=== PATIENT | female | born 1985 | race Caucasian/White ===

== ENCOUNTER 2018-04-27 12:57 | Emergency (ER) | payer OTHER ==
--- NOTE | 2018-04-27 15:34 | ER ---
Nurse's Notes [facility] Name: Lizzeth Almaraz Age: 33 yrs Sex: Female : 1985 Arrival Date: 04/27/2018 Time: 13:00 Bed 30 Private MD: Win García Diagnosis: Cough;Acute upper respiratory infection, unspecified;Allergy, unspecified Presentation: 04/27 13:04 Presenting complaint: Patient states: "I've had lumps in my throat for about a year now aa5 and they are getting bigger and I've had trouble swallowing for about a week now". Pt states "I've been to 3 or 4 different doctors and they tell me that it's in my head that my throat is fine". Pt c/o coughing up blood that began yesterday. Pt denies throat pain. Pt's voice is clear and pt is able to swallow own secretions in triage. Transition of care: patient was not received from another setting of care. Onset of symptoms was April 2018. Risk Assessment: Do you want to hurt yourself or someone else? Patient reports no desire to harm self or others. Initial Sepsis Screen: Does the patient meet any 2 criteria? No. Patient's initial sepsis screen is negative. Does the patient have a suspected source of infection? No. Patient's initial sepsis screen is negative. Care prior to arrival: None. 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 - Social history:: Smoking status: Patient/guardian denies using tobacco. - Ebola Screening: : No symptoms or risks identified at this time. Screenin:11 Abuse screen: Denies threats or abuse. Denies injuries from another. Nutritional iw screening: No deficits noted. Tuberculosis screening: No symptoms or risk factors identified. Fall Risk None identified. Assessment: 15:10 General: Appears in no apparent distress. Behavior is calm, cooperative. Pain: iw Complains of pain in throat. Neuro: Level of Consciousness is awake, alert, obeys commands, Oriented to person, place, time, situation, Moves all extremities. Full function. Cardiovascular: Patient's skin is warm and dry. Respiratory: Airway is patent Respiratory effort is even, unlabored, Breath sounds are clear bilaterally. GI: Abdomen is non-distended. EENT: Throat with gag reflex present, Reports difficulty swallowing. Derm: Skin is intact, is healthy with good turgor. Musculoskeletal: Range of motion: intact in all extremities. 16:11 Reassessment: Patient appears in no apparent distress at this time. Patient and/or mg2 family updated on plan of care and expected duration. Pain level reassessed. Patient is alert, oriented x 3, equal unlabored respirations, skin warm/dry/pink. Vital Signs: 13:07 BP 132 / 91; Pulse 95; Resp 16 S; Temp 97.6(TE); Pulse Ox 97% on R/A; Weight 90.72 kg aa5 (R); Height 5 ft. 2 in. (157.48 cm) (R); Pain 0/10; 16:11 BP 123 / 78; Pulse 85; Resp 18; Pulse Ox 100% ; Pain 0/10; mg2 13:07 Body Mass Index 36.58 (90.72 kg, 157.48 cm) aa5 ED Course: 13:00 Patient arrived in ED. mr 13:01 Win García MD is Private Physician. mr 13:06 Triage completed. aa5 13:07 Arm band placed on. aa5 14:06 Katty Dodge, RN is Primary Nurse. iw 14:07 Aquilino Corona MD is Attending Physician. cresencio 15:33 Win García MD is Referral Physician. cresencio 15:41 X-ray completed. Patient tolerated procedure well. Patient moved back from radiology. az 15:42 Chest Pa And Lat (2 Views) XRAY In Process Unspecified. EDMS 16:11 Patient has correct armband on for positive identification. mg2 16:11 No provider procedures requiring assistance completed. Patient did not have IV access mg2 during this emergency room visit. Administered Medications: 15:35 Drug: Zithromax 500 mg Route: PO; mg2 15:53 Follow up: Response: No adverse reaction mg2 Outcome: 15:33 Discharge ordered by . cresencio 16:11 Discharged to home ambulatory. mg2 16:11 Condition: stable 16:11 Discharge instructions given to patient, family, Instructed on discharge instructions, follow up and referral plans. medication usage, Demonstrated understanding of instructions, follow-up care, medications, Prescriptions given X 3. 16:12 Patient left the ED. mg2 Signatures: Dispatcher [employer] EDMS Aquilino Corona MD MD cha Rivera, Maria mr Katty Dodge RN RN iw Angelia Bonner RN RN aa5 Bandar Baiers RN RN mg2 Mirella Hdz Corrections: (The following items were deleted from the chart) 13:08 13:04 Presenting complaint: Patient states: "I've had lumps in my throat for about a aa5 year now and they are getting bigger and I've had trouble swallowing for about a week now". Pt states "I've been to 3 or 4 different doctors and they tell me that it's in my head that my throat is fine". Pt c/o coughing up blood that began yesterday. aa5
--- NOTE | 2018-04-27 15:34 | EDPHYS ---
Physician Documentation [facility] Name: Lizzeth Almaraz Age: 33 yrs Sex: Female : 1985 Arrival Date: 04/27/2018 Time: 13:00 Bed 30 Private MD: Win García ED Physician Aquilino Corona HPI: 04/27 15:28 This 33 yrs old Female presents to ER via Ambulatory with complaints of Sore cresencio Throat. 15:28 The patient presents with sore throat. The patient describes throat pain as burning, cresencio raw. Onset: The symptoms/episode began/occurred 2 day(s) ago. Severity of symptoms: At their worst the symptoms were mild, in the emergency department the symptoms have improved, mildly. Modifying factors: The symptoms are alleviated by nothing, the symptoms are aggravated by swallowing, Patient's oral intake status: good. Associated signs and symptoms: Pertinent positives: cough, some blood in sputum. The patient has not experienced similar symptoms in the past. 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 - Social history:: Smoking status: Patient/guardian denies using tobacco. - Ebola Screening: : No symptoms or risks identified at this time. ROS: 15:31 Constitutional: Negative for fever, chills, and weight loss, Eyes: Negative for injury, cresencio pain, redness, and discharge, Neck: Negative for injury, pain, and swelling, Cardiovascular: Negative for chest pain, palpitations, and edema, Abdomen/GI: Negative for abdominal pain, nausea, vomiting, diarrhea, and constipation, Back: Negative for injury and pain, : Negative for injury, bleeding, discharge, and swelling, MS/Extremity: Negative for injury and deformity, Skin: Negative for injury, rash, and discoloration, Neuro: Negative for headache, weakness, numbness, tingling, and seizure, Psych: Negative for depression, anxiety, suicide ideation, homicidal ideation, and hallucinations, Allergy/Immunology: Negative for hives, rash, and allergies, Endocrine: Negative for neck swelling, polydipsia, polyuria, polyphagia, and marked weight changes, Hematologic/Lymphatic: Negative for swollen nodes, abnormal bleeding, and unusual bruising. 15:31 ENT: Positive for rhinorrhea, sinus congestion. 15:31 Respiratory: Positive for cough, hemoptysis, minimal blood. Exam: 15:31 Constitutional: This is a well developed, well nourished patient who is awake, alert, cresencio and in no acute distress. Head/Face: Normocephalic, atraumatic. Eyes: Pupils equal round and reactive to light, extra-ocular motions intact. Lids and lashes normal. Conjunctiva and sclera are non-icteric and not injected. Cornea within normal limits. Periorbital areas with no swelling, redness, or edema. ENT: Nares patent. No nasal discharge, no septal abnormalities noted. Tympanic membranes are normal and external auditory canals are clear. Oropharynx with no redness, swelling, or masses, exudates, or evidence of obstruction, uvula midline. Mucous membranes moist. Neck: Trachea midline, no thyromegaly or masses palpated, and no cervical lymphadenopathy. Supple, full range of motion without nuchal rigidity, or vertebral point tenderness. No Meningismus. Chest/axilla: Normal chest wall appearance and motion. Nontender with no deformity. No lesions are appreciated. Cardiovascular: Regular rate and rhythm with a normal S1 and S2. No gallops, murmurs, or rubs. Normal PMI, no JVD. No pulse deficits. Respiratory: Lungs have equal breath sounds bilaterally, clear to auscultation and percussion. No rales, rhonchi or wheezes noted. No increased work of breathing, no retractions or nasal flaring. Abdomen/GI: Soft, non-tender, with normal bowel sounds. No distension or tympany. No guarding or rebound. No evidence of tenderness throughout. Back: No spinal tenderness. No costovertebral tenderness. Full range of motion. Skin: Warm, dry with normal turgor. Normal color with no rashes, no lesions, and no evidence of cellulitis. MS/ Extremity: Pulses equal, no cyanosis. Neurovascular intact. Full, normal range of motion. Neuro: Awake and alert, GCS 15, oriented to person, place, time, and situation. Cranial nerves II-XII grossly intact. Motor strength 5/5 in all extremities. Sensory grossly intact. Cerebellar exam normal. Normal gait. Psych: Awake, alert, with orientation to person, place and time. Behavior, mood, and affect are within normal limits. 15:35 Musculoskeletal/extremity: DVT Exam: No signs of deep vein thrombosis. no pain, no cresencio swelling, no tenderness, negative Homans' sign noted on exam, no appreciated bluish discoloration, no erythema, no increased warmth. Vital Signs: 13:07 BP 132 / 91; Pulse 95; Resp 16 S; Temp 97.6(TE); Pulse Ox 97% on R/A; Weight 90.72 kg aa5 (R); Height 5 ft. 2 in. (157.48 cm) (R); Pain 0/10; 16:11 BP 123 / 78; Pulse 85; Resp 18; Pulse Ox 100% ; Pain 0/10; mg2 13:07 Body Mass Index 36.58 (90.72 kg, 157.48 cm) aa5 MDM: 14:[address] [facility] 15:32 Data reviewed: vital signs, nurses notes, lab test result(s), radiologic studies, plain cresencio films. 04/27 15:36 Order name: Urine Dipstick--Ancillary (enter results) 04/27 15:36 Order name: Urine --Ancillary (enter results) 04/27 15:28 Order name: Urine Dipstick-Ancillary (obtain specimen); Complete Time: 15:32 [facility] 04/27 15:28 Order name: Urine Test (obtain specimen); Complete Time: 15:32 [facility] 04/27 15:28 Order name: Chest Pa And Lat (2 Views) XRAY [facility] Administered Medications: 15:35 Drug: Zithromax 500 mg Route: PO; mg2 15:53 Follow up: Response: No adverse reaction mg2 Disposition: 04/27/18 15:33 Discharged to Home. Impression: Cough, Acute upper respiratory infection, unspecified, Allergy, unspecified. - Condition is Stable. - Discharge Instructions: Upper Respiratory Infection, Adult, Cool Mist Vaporizer, Cough, Adult, [id number], Cough, Adult. - Prescriptions for Georgie- D 12 Hour 60-120 mg Oral Tablet Sustained Release 12 hr - take 1 tablet by ORAL route every 12 hours As needed; 20 tablet. Zithromax Z- Ankit 250 mg Oral Tablet - take 1 tablet by ORAL route as directed for 5 days Day 1 - take two (2) tablets one time. Day 2, 3, 4 , 5 take one (1) tablet once daily.; 6 tablet. Medrol (Ankit) 4 mg Oral Tablets, Dose Pack - take 1 tablet by ORAL route as directed - follow package instructions; 1 packet. - Medication Reconciliation Form, Thank You Letter, Antibiotic Education, Prescription Opioid Use form. - Follow up: Win García MD; When: 2 - 3 days; Reason: Recheck today's complaints, Continuance of care, Re-evaluation by your physician. - Problem is new. - Symptoms have improved. Signatures: Dispatcher [employer] EDMS Aquilino Corona MD MD cha Calderon, Audri RN RN aa5 Bandar Baires RN RN mg2 Corrections: (The following items were deleted from the chart) 15:35 15:33 04/27/2018 15:33 Discharged to Home. Impression: Cough; Acute upper respiratory cresencio infection, unspecified. Condition is Stable. Forms are Medication Reconciliation Form, Thank You Letter, Antibiotic Education, Prescription Opioid Use. Follow up: Win García; When: 2 - 3 days; Reason: Recheck today's complaints, Continuance of care, Re-evaluation by your physician. Problem is new. Symptoms have improved. [facility] 16:12 15:35 04/27/2018 15:33 Discharged to Home. Impression: Cough; Acute upper respiratory mg2 infection, unspecified; Allergy, unspecified. Condition is Stable. Discharge Instructions: Upper Respiratory Infection, Adult, Cool Mist Vaporizer, Cough, Adult, [id number]-Biyh, Cough, Adult. Prescriptions for Georgie-D 12 Hour 60-120 mg Oral Tablet Sustained Release 12 hr - take 1 tablet by ORAL route every 12 hours As needed; 20 tablet, Zithromax Z-Ankit 250 mg Oral Tablet - take 1 tablet by ORAL route as directed for 5 days Day 1 - take two (2) tablets one time. Day 2, 3, 4 , 5 take one (1) tablet once daily.; 6 tablet, Medrol (Ankit) 4 mg Oral Tablets, Dose Pack - take 1 tablet by ORAL route as directed - follow package instructions; 1 packet. and Forms are Medication Reconciliation Form, Thank You Letter, Antibiotic Education, Prescription Opioid Use. Follow up: Win García; When: 2 - 3 days; Reason: Recheck today's complaints, Continuance of care, Re-evaluation by your physician. Problem is new. Symptoms have improved. cresencio
[2018-04-27] MEDS ORDERED: AZITHROMYCIN 250 MG TAB ONE (15:36)
[2018-04-27 15:40] LABS: Urine Blood NEGATIVE (NEG); Urine Glucose NEGATIVE (NEG); Urine Protein NEGATIVE (NEG); Urine Specific Gravity 1.025 (1.005-1.030)
[2018-04-27 16:16] VITALS: TEMP 97.6
[2018-04-27 16:17] VITALS: BP 123/78; O2SAT 100
--- NOTE | 2018-04-27 17:16 | RAD REPORT ---
EXAM DESCRIPTION: RAD - Chest Pa And Lat (2 Views) - 04/27/2018 3:43 pm CLINICAL HISTORY: Cough, hemoptysis COMPARISON: January 2016 TECHNIQUE: PA and lateral views of the chest were obtained. FINDINGS: The lungs are clear. Heart size is normal and central vasculature is within normal limit s. No pleural effusion or pneumothorax seen. No acute bony finding noted. No aortic abnormality. No significant interval change. IMPRESSION: No acute cardiopulmonary process.
== END 2018-04-27 16:12 | disposition home or self-care (01) ==
LOC: ER 12:57
DX: J06.9 Acute upper respiratory infection, unspecified (principal); Z91.09 Other allergy status, other than to drugs and biological substances
CPT/HCPCS: 71046; 81003; 81025; 99283

== ENCOUNTER → 2023-10-25 | Emergency (ER) | payer OTHER ==
[~2023-10-25] MED LIST: MORPHINE 4 MG/ML SYR ONE; NA CHLORIDE 0.9% 1,000 ML ONE; ONDANSETRON 4 MG/2 ML VIAL ONE; POTASSIUM 25 MEQ EFFERV TAB ONE
[2023-10-25 04:42] LABS: Absolute Lymphocytes (CBC) 2.4 K/uL (0.7-4.9); Hematocrit 36.5 % (36.0-45.0); Lymphocytes % 21.1 % (15.3-44.8); MCV 84.6 fL (80-100); MPV 7.8 fL (7.6-11.3); Platelets 520 thou/uL (152-406); RBC Red Blood Cell Count 4.31 M/uL (3.86-4.86)
[2023-10-25 04:44] LABS: Specific Gravity 1.021 (1.005-1.030)
[2023-10-25 04:47] LABS: Specific Gravity 1.021 (1.005-1.030); Urine Bacteria <20 /HPF (<20); Urine Bilirubin NEGATIVE (Negative); Urine Blood Negative (Negative); Urine Clarity Extremely Turbid (Clear); Urine Color Light-Yellow (Yellow); Urine Glucose NEGATIVE (Negative); Urine Mucus 2+ /HPF (None Seen); Urine Protein TRACE (Negative); Urine RBC <5 /HPF (None Seen); Urine Urobilinogen Normal (Normal)
[2023-10-25 05:00] LABS: Albumin 3.1 g/dL (3.4-5.0); Bilirubin Total 0.5 mg/dL (0.2-1.0); Potassium 3.1 mEq/L (3.5-5.1); Protein, Total 8.1 g/dL (6.4-8.2)
--- NOTE | 2023-10-25 06:30 | ER ---
Nurse's Notes [facility] Name: Lizzeth Almaraz Age: 38 yrs Sex: Female : 1985 Arrival Date: 10/25/2023 Time: 01:54 Bed 17 Private MD: Diagnosis: Abdominal tenderness;Hypokalemia Presentation: 10/25 02:43 Chief complaint: Patient states: I had a hysterectomy September 22, about 2 weeks ago I jw7 started have severe pain. I went to [facility] they did blood work and scanned and said everything was fine. The pain is back and it is now going to my back. 02:43 Coronavirus screen: Vaccine status: Patient reports being unvaccinated. At this time, vc1 the client does not indicate any symptoms associated with coronavirus-19. Ebola Screen: Patient negative for fever greater than or equal to 101.5 degrees Fahrenheit, and additional compatible Ebola Virus Disease symptoms Patient denies exposure to infectious person. Patient denies travel to an Ebola-affected area in the 21 days before illness onset. No symptoms or risks identified at this time. Initial Sepsis Screen: Does the patient meet any 2 criteria? No. Patient's initial sepsis screen is negative. Does the patient have a suspected source of infection? No. Patient's initial sepsis screen is negative. Risk Assessment: Do you want to hurt yourself or someone else? Patient reports no desire to harm self or others. Onset of symptoms is unknown. 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 - Social history:: Smoking status: Patient denies any tobacco usage or history of. Screenin:28 Abuse screen: Denies threats or abuse. Nutritional screening: No deficits noted. vc1 Tuberculosis screening: No symptoms or risk factors identified. 05:01 [facility] ED Fall Risk Assessment (Adult) History of falling in the last 3 months, jw7 including since admission No falls in past 3 months (0 pts) Score/Fall Risk Level 0 - 2 = Low Risk Oriented to surroundings, Maintained a safe environment, Educated pt \T\ family on fall prevention, incl call for assistance when getting out of bed. Assessment: 05:01 General: Appears in no apparent distress. uncomfortable, Behavior is calm, cooperative, jw7 anxious, crying. Pain: Complains of pain in abdomen Pain radiates to back Pain currently is 8 out of 10 on a pain scale. Quality of pain is described as sharp, Pain began suddenly, Is continuous. Neuro: Win Agitation-Sedation Scale (RASS): 0 - Alert and Calm Level of Consciousness is awake, alert, obeys commands, Oriented to person, place, time, situation. Cardiovascular: Heart tones S1 S2 present Capillary refill < 3 seconds Patient's skin is warm and dry. Respiratory: Airway is patent Trachea midline Respiratory effort is even, unlabored, Respiratory pattern is regular, symmetrical. GI: Abdomen is round non-distended, Bowel sounds present X 4 quads. : No deficits noted. No signs and/or symptoms were reported regarding the genitourinary system. EENT: No deficits noted. No signs and/or symptoms were reported regarding the EENT system. Derm: Skin is intact, is healthy with good turgor, Skin is dry, Skin is normal, Skin temperature is warm. Musculoskeletal: Circulation, motion, and sensation intact. Range of motion: intact in all extremities. 06:21 Reassessment: Patient appears in no apparent distress at this time. Patient and/or jw7 family updated on plan of care and expected duration. Pain level reassessed. Patient is alert, oriented x 3, equal unlabored respirations, skin warm/dry/pink. Patient states feeling better. Patient states symptoms have improved. 07:03 Reassessment: Patient appears in no apparent distress at this time. No changes from jw7 previously documented assessment. Patient and/or family updated on plan of care and expected duration. Pain level reassessed. Patient is alert, oriented x 3, equal unlabored respirations, skin warm/dry/pink. Vital Signs: 02:43 BP 129 / 64; Pulse 99; Resp 18; Temp 98.8; Pulse Ox 97% ; Weight 75.75 kg; Height 5 ft. vc1 1 in. ; Pain 10/10; 05:39 BP 103 / 76; Pulse 86; Resp 19 S; Pulse Ox 95% on R/A; jw7 06:00 BP 92 / 61; Pulse 86; Resp 17 S; Pulse Ox 95% on R/A; jw7 07:03 BP 102 / 63; Pulse 85; Resp 16 S; Pulse Ox 96% on R/A; jw7 02:43 Body Mass Index 31.55 (75.75 kg, 154.94 cm) vc1 02:43 Pain Scale: Adult vc1 ED Course: 02:01 Patient arrived in ED. gm2 02:08 Aquilino Corona MD is Attending Physician. cresencio 03:26 Triage completed. vc1 03:27 Arm band placed on right wrist. vc1 04:15 Inserted saline lock: 22 gauge in right antecubital area, using aseptic technique. vc1 Blood collected. 04:59 Nicole Morel RN is Primary Nurse. jw7 05:01 Patient has correct armband on for positive identification. Bed in low position. Call jw7 light in reach. Side rails up X 1. 05:22 CT Abd/Pelvis - IV Contrast Only In Process Unspecified. EDMS 05:39 No provider procedures requiring assistance completed. jw7 07:04 Provided Education on: discharge instructions. jw7 07:04 IV discontinued, intact, bleeding controlled, No redness/swelling at site. Pressure jw7 dressing applied. Administered Medications: 04:08 Not Given (Duplicate Order): morphineor iv 2 mg IVP once over 4 mins cresencio 04:15 Drug: NS 0.9% IV 1000 ml IV at 1 bolus Per protocol; 1000 mL bolus Route: IV; Rate: 1 vc1 bolus; Site: right antecubital; 07:05 Follow up: Response: No adverse reaction; IV Status: Completed infusion; IV Intake: jw7 1000ml 04:15 Drug: Ondansetron IVP 4 mg IVP once; over 2 minutes Route: IVP; Site: right antecubital;vc1 07:05 Follow up: Response: No adverse reaction jw7 04:15 Drug: morphine IVP or IV 4 mg IVP once over 4 mins Route: IVP; Infused Over: 4 mins; vc1 Site: right antecubital; 07:04 Follow up: Response: No adverse reaction; Marked relief of symptoms jw7 05:38 Drug: morphine IVP or IV 4 mg IVP once over 4 mins Route: IVP; Infused Over: 4 mins; jw7 Site: right antecubital; 07:04 Follow up: Response: No adverse reaction; Marked relief of symptoms jw7 05:38 Drug: Ondansetron IVP 4 mg IVP once; over 2 minutes Route: IVP; Site: right antecubital;jw7 07:04 Follow up: Response: No adverse reaction; Marked relief of symptoms jw7 06:54 Drug: Potassium PO Effervescent Tablet 50 mEq PO once; dissolve in 4 ounces of water or jw7 juice Route: PO; 07:04 Follow up: Response: No adverse reaction jw7 Medication: 05:40 VIS not applicable for this client. jw7 Intake: 07:05 IV: 1000ml; Total: 1000ml. jw7 Outcome: 06:30 Discharge ordered by . cresencio 07:03 Discharged to home ambulatory, jw7 07:03 Condition: stable 07:03 Discharge instructions given to patient, Instructed on discharge instructions, follow up and referral plans. medication usage, Demonstrated understanding of instructions, follow-up care, medications, Prescriptions given X 3, 07:05 Patient left the ED. jw7 Signatures: Dispatcher [employer] EDMS Aquilino Corona MD MD cha Calcote, Vanessa RN RN vc1 Nicole Morel RN RN [id number] Katie Hawthorne gm2 Corrections: (The following items were deleted from the chart) 05:00 02:43 Chief complaint: Patient states: I had a hysterectomy September 22, about 2 weeks jw7 ago I started have severe pain. I went to [facility] they did blood work and scanned and said everything was fine. The pain is back and it is now going to my back. vc1
--- NOTE | 2023-10-25 06:31 | EDPHYS ---
Physician Documentation [facility] Name: Lizzeth Almaraz Age: 38 yrs Sex: Female : 1985 Arrival Date: 10/25/2023 Time: 01:54 Bed 17 Private MD: YEN Physician Aquilino Corona HPI: 10/25 04:10 This 38 yrs old Female presents to ER via Ambulatory with complaints of cresencio Abdominal Pain, Low Back Pain, Pt had a Hysterectomy in August. 04:10 The patient presents with pain that is acute, with no known mechanism of injury. The cresencio symptoms are located in the right mid back and right low back. The pain does not radiate. Modifying factors: The patient symptoms are alleviated by remaining still, the patient symptoms are aggravated by any movement. Severity of symptoms: At their worst the symptoms were moderate, in the emergency department the symptoms are unchanged. 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 - Social history:: Smoking status: Patient denies any tobacco usage or history of. ROS: 04:11 Constitutional: Negative for fever, chills, and weight loss, Eyes: Negative for injury, cresencio pain, redness, and discharge, ENT: Negative for injury, pain, and discharge, Neck: Negative for injury, pain, and swelling, Cardiovascular: Negative for chest pain, palpitations, and edema, Respiratory: Negative for shortness of breath, cough, wheezing, and pleuritic chest pain, Back: Negative for injury and pain, : Negative for injury, bleeding, discharge, and swelling, MS/Extremity: Negative for injury and deformity, Skin: Negative for injury, rash, and discoloration, Neuro: Negative for headache, weakness, numbness, tingling, and seizure, Psych: Negative for depression, anxiety, suicide ideation, homicidal ideation, and hallucinations, Allergy/Immunology: Negative for hives, rash, and allergies, Endocrine: Negative for neck swelling, polydipsia, polyuria, polyphagia, and marked weight changes, Hematologic/Lymphatic: Negative for swollen nodes, abnormal bleeding, and unusual bruising, 04:11 Abdomen/GI: Positive for abdominal pain, of the posterior aspect of right lateral abdomen, anterior aspect of right lateral abdomen and right lower quadrant, Exam: 04:11 Constitutional: This is a well developed, well nourished patient who is awake, alert, cresencio and in no acute distress. Head/Face: Normocephalic, atraumatic. Eyes: Pupils equal round and reactive to light, extra-ocular motions intact. Lids and lashes normal. Conjunctiva and sclera are non-icteric and not injected. Cornea within normal limits. Periorbital areas with no swelling, redness, or edema. ENT: Nares patent. No nasal discharge, no septal abnormalities noted. Tympanic membranes are normal and external auditory canals are clear. Oropharynx with no redness, swelling, or masses, exudates, or evidence of obstruction, uvula midline. Mucous membranes moist. Neck: Trachea midline, no thyromegaly or masses palpated, and no cervical lymphadenopathy. Supple, full range of motion without nuchal rigidity, or vertebral point tenderness. No Meningismus. Chest/axilla: Normal chest wall appearance and motion. Nontender with no deformity. No lesions are appreciated. Cardiovascular: Regular rate and rhythm with a normal S1 and S2. No gallops, murmurs, or rubs. Normal PMI, no JVD. No pulse deficits. Respiratory: Lungs have equal breath sounds bilaterally, clear to auscultation and percussion. No rales, rhonchi or wheezes noted. No increased work of breathing, no retractions or nasal flaring. Back: No spinal tenderness. No costovertebral tenderness. Full range of motion. Skin: Warm, dry with normal turgor. Normal color with no rashes, no lesions, and no evidence of cellulitis. MS/ Extremity: Pulses equal, no cyanosis. Neurovascular intact. Full, normal range of motion. Neuro: Awake and alert, GCS 15, oriented to person, place, time, and situation. Cranial nerves II-XII grossly intact. Motor strength 5/5 in all extremities. Sensory grossly intact. Cerebellar exam normal. Normal gait. 04:11 Abdomen/GI: Inspection: distension, that is moderate, Bowel sounds: normal, Palpation: moderate abdominal tenderness, in the right lower quadrant and left lower quadrant, Liver: no appreciated palpable abnormalities, Hernia: not appreciated, 04:11 Musculoskeletal/extremity: DVT Exam: No signs of deep vein thrombosis. no pain, no swelling, no tenderness, negative Homans' sign noted on exam, no appreciated bluish discoloration, no erythema, no increased warmth, Vital Signs: 02:43 BP 129 / 64; Pulse 99; Resp 18; Temp 98.8; Pulse Ox 97% ; Weight 75.75 kg; Height 5 ft. vc1 1 in. ; Pain 10/10; 05:39 BP 103 / 76; Pulse 86; Resp 19 S; Pulse Ox 95% on R/A; jw7 06:00 BP 92 / 61; Pulse 86; Resp 17 S; Pulse Ox 95% on R/A; jw7 07:03 BP 102 / 63; Pulse 85; Resp 16 S; Pulse Ox 96% on R/A; jw7 02:43 Body Mass Index 31.55 (75.75 kg, 154.94 cm) vc1 02:43 Pain Scale: Adult vc1 MDM: 02:08 Patient medically screened. [facility] 04:13 Differential diagnosis: strain, sciatica, Herniated disc UTI, nephrolithiasis, cresencio pyelonephritis, UTI. Data reviewed: vital signs, nurses notes, lab test result(s), radiologic studies, CT scan. Consideration of Admission/Observation Patient was admitted/placed on observation. Escalation of care including admission/observation considered. I considered the following discharge prescriptions or medication management in the emergency department Medications were administered in the Emergency Department. See MAR. Independent interpretation of the following test(s) in the Emergency Department CT Scan: My interpretation is ct abd pelvis. Test considered but Not performed: Ultrasound no abd usg. Care significantly affected by the following chronic conditions: Obesity, hypothy , gerd , obese. 10/25 02:10 Order name: CBC with Diff; Complete Time: 04:55 [facility] 10/25 02:10 Order name: CMP; Complete Time: 05:25 [facility] 10/25 02:10 Order name: Lipase; Complete Time: 05:25 [facility] 10/25 02:10 Order name: Test, Urine; Complete Time: 04:55 [facility] 10/25 02:10 Order name: Urinalysis w/ reflexes; Complete Time: 04:55 [facility] 10/25 02:10 Order name: CT Abd/Pelvis - IV Contrast Only cresencio 10/25 02:10 Order name: IV Saline Lock; Complete Time: 04:15 cresencio 10/25 02:10 Order name: Labs collected and sent; Complete Time: 04:15 cresencio Administered Medications: 04:08 Not Given (Duplicate Order): morphineor iv 2 mg IVP once over 4 mins cresencio 04:15 Drug: NS 0.9% IV 1000 ml IV at 1 bolus Per protocol; 1000 mL bolus Route: IV; Rate: 1 vc1 bolus; Site: right antecubital; 07:05 Follow up: Response: No adverse reaction; IV Status: Completed infusion; IV Intake: jw7 1000ml 04:15 Drug: Ondansetron IVP 4 mg IVP once; over 2 minutes Route: IVP; Site: right antecubital;vc1 07:05 Follow up: Response: No adverse reaction jw7 04:15 Drug: morphine IVP or IV 4 mg IVP once over 4 mins Route: IVP; Infused Over: 4 mins; vc1 Site: right antecubital; 07:04 Follow up: Response: No adverse reaction; Marked relief of symptoms jw7 05:38 Drug: morphine IVP or IV 4 mg IVP once over 4 mins Route: IVP; Infused Over: 4 mins; jw7 Site: right antecubital; 07:04 Follow up: Response: No adverse reaction; Marked relief of symptoms jw7 05:38 Drug: Ondansetron IVP 4 mg IVP once; over 2 minutes Route: IVP; Site: right antecubital;jw7 07:04 Follow up: Response: No adverse reaction; Marked relief of symptoms jw7 06:54 Drug: Potassium PO Effervescent Tablet 50 mEq PO once; dissolve in 4 ounces of water or jw7 juice Route: PO; 07:04 Follow up: Response: No adverse reaction jw7 Disposition Summary: 10/25/23 06:30 Discharge Ordered Notes: Location: Home cresencio Problem: new cresencio Symptoms: have improved cresencio Condition: Stable cresencio Diagnosis - Abdominal tenderness cresencio - Hypokalemia cresencio Followup: cresencio - With: Private Physician - When: 2 - 3 days - Reason: Recheck today's complaints, Continuance of care, Re-evaluation by your physician Discharge Instructions: - Discharge Summary Sheet cresencio - Abdominal Pain, Adult cresencio - Abdominal Pain, Adult, [id number] cresencio Forms: - Medication Reconciliation Form cresencio - Thank You Letter cresencio - Antibiotic Education cresencio - Prescription Opioid Use cresencio - Patient Portal Instructions cresencio - Leadership Thank You Letter cresencio - Work release form eb Prescriptions: - acetaminophen-codeine 300-30 mg Oral tablet - take 2 tablet ORAL route every 6-8 hours as needed for pain; 18 tablet; cresencio Refills: 0, Product Selection Permitted - Protonix 40 mg Oral Tablet - take 1 tablet ORAL route once daily; 30 tablet; Refills: 0, Product Selection [facility] Permitted - Zofran 4 mg Oral Tablet - take 1 tablet ORAL route every 12 hours As needed; 20 tablet; Refills: 0, [facility] Product Selection Permitted - dicyclomine 20 mg Oral tablet - take 1 tablet ORAL route 4 times per day; 28 tablet; Refills: 0, Product [facility] Selection Permitted Signatures: Dispatcher [employer] Aquilino Miller MD MD cha Calcote, Vanessa RN RN vc1 Nicole Morel RN RN jw7
[2023-10-25 07:15] VITALS: BP 102/63; TEMP 98.8; O2SAT 96
--- NOTE | 2023-10-25 17:17 | RAD REPORT ---
EXAM DESCRIPTION: CT - Abdomen Pelvis W Contrast - 10/25/2023 6:17 am CLINICAL HISTORY: The patient is 38 years old and is Female; lower abd pain, recent hysterectomy TECHNIQUE: Axial computed tomography images of the abdomen and pelvis with intravenous contrast. S agittal and coronal reformatted images were created and reviewed. This CT exam was performed using one or more of the following dose reduction techniques: automated exposure control, adjustment of t he mA and/or kV according to patient size, and/or use of iterative reconstruction technique. COMPARISON: No relevant prior studies available. FINDINGS: Lung bases: Unremarkable. No mass. No consolidation. ABDOMEN: Liver: Hepatomegaly. Gallbladder and bile ducts: Gallbladder is surgically absent. No ductal dilation. Pancreas: Unremarkable. No mass. No ductal dilation. Spleen: Unremarkable. No splenomegaly. Adrenals: Unremarkable. No mass. Kidneys and ureters: Simple cysts in the right kidney. No follow-up imaging is recommended. No hydronephrosis. Stomach and bowel: Postsurgical changes in the stomach. No obstruction. No mucosal thickening. PELVIS: Appendix: No findings to suggest acute appendicitis. Bladder: See below. Reproductive: Uterus is not seen. Stranding around the vagina and bladder which may be postsurgical. ABDOMEN and PELVIS: Intraperitoneal space: Unremarkable. No free air. No significant fluid collection. Bones/joints: No acute fracture. No dislocation. Soft tissues: Subcutaneous stranding along the lower abdominal wall which may be postsurgical. Vasculature: Unremarkable. No abdominal aortic aneurysm. Lymph nodes: Unremarkable. No enlarged lymph nodes. IMPRESSION: No acute finding in the abdomen/pelvis. Electronically signed by: Raúl Lui MD 10/25/2023 05:51 AM [facility] Due to temporary technical issues with the PACS/Fluency reporting system, reports are being signed by the in house radiologists without review as a courtesy to insure prompt reporting. The interpreting radiologist is fully responsible for the content of the report.
== END ==
LOC: ER 01:54
DX: R10.813 Right lower quadrant abdominal tenderness (principal); E87.6 Hypokalemia; Z88.2 Allergy status to sulfonamides
CPT/HCPCS: 85025; 81001; 36415; 81025; 83690; 80053; 74177; Q9967; J2405 ×2; J7030; 96361; 96374; 96375; 99284

== ENCOUNTER 2024-01-01 21:55 | Emergency (ER) | payer OTHER ==
[2024-01-01] MEDS ORDERED: MORPHINE 4 MG/ML SYR ONE (22:35)
[2024-01-01] MEDS ORDERED: NA CHLORIDE 0.9% 1,000 ML ONE (22:35)
[2024-01-01] MEDS ORDERED: ONDANSETRON 4 MG/2 ML VIAL ONE (22:35)
[2024-01-01 23:11] LABS: Absolute Basophils 0.1 K/uL (0-0.5); Absolute Eosinophils 0.3 K/uL (0-0.5); Absolute Lymphocytes (CBC) 1.7 K/uL (0.7-4.9); Absolute Monocytes 0.6 K/uL (0.1-1.3); Absolute Neutrophil 5.6 K/uL (1.8-8.0); Basophils % 0.7 % (0-1.3); Eosinophils % 3.4 % (0-4.4); Hematocrit 45.6 % (36.0-45.0); Hemoglobin 15.2 g/dL (12.0-15.0); Lymphocytes % 21.2 % (15.3-44.8); MCH 26.7 pg (27.0-35.0); MCHC 33.2 g/dL (32.0-36.0); MCV 80.3 fL (80-100); MPV 7.9 fL (7.6-11.3); Monocytes % 7.1 % (3.3-12.3); Neutrophils % 67.6 % (41.7-73.7); Nucleated Red Blood Cells % 0.1 % (0-0); Platelets 485 thou/uL (152-406); RBC Red Blood Cell Count 5.68 M/uL (3.86-4.86); Red Cell Distribution Width 18.6 % (12.1-15.2)
[2024-01-01 23:31] LABS: Albumin 3.3 g/dL (3.4-5.0); Albumin/Globulin Ratio 0.6 (1.1-1.8); Anion Gap 12.1 mEq/L (5.0-15.0); Bilirubin Total 0.5 mg/dL (0.2-1.0); Globulin 5.1 g/dL (2.3-3.5); Potassium 3.1 mEq/L (3.5-5.1); Protein, Total 8.4 g/dL (6.4-8.2)
[2024-01-02] MEDS ORDERED: FENTANYL CITR 100 MCG/2 ML ONE (00:46)
--- NOTE | 2024-01-02 01:17 | EDPHYS ---
Physician Documentation [facility] Name: Lizzeth Almaraz Age: 38 yrs Sex: Female : 1985 Arrival Date: 01/01/2024 Time: 21:55 Bed 15 Private MD: YEN Physician Aquilino Corona HPI: 12/31 23:17 This 38 yrs old Female presents to ER via Wheelchair with complaints of Fall Injury, sb4 abdominal pain. 23:18 patient states that she was walking down her stairs this afternoon when her dog tripped sb4 her, causing her to fall down 7 stairs, landing on her abdomen. she is concerned because she had gastric bypass surgery done 10 days ago at [facility] and is worried she damaged her surgical sites. Historical: - Allergies: 22:08 Sulfa (Sulfonamide Antibiotics); cm10 - PMHx: 22:08 Gastroesophageal reflux disease; Hypothyroidism; cm10 - PSHx: 22:08 Total abdominal hysterectomy; Gastric Bypass (December 23, 2023); cm10 - Immunization history:: Adult Immunizations up to date. - Infectious Disease History:: Denies. - Social history:: Smoking status: Patient denies any tobacco usage or history of. ROS: 23:18 Constitutional: Negative for fever, chills, and weight loss, sb4 23:18 Abdomen/GI: Positive for abdominal pain, 23:18 All other systems are negative, Exam: 01/01 01:09 Head/Face: Normocephalic, atraumatic. Eyes: Extra-ocular motions intact. Periorbital sb4 areas with no swelling, redness, or edema. ENT: Mucous membranes moist. Cardiovascular: Regular rate and rhythm with a normal S1 and S2. Respiratory: Lungs have equal breath sounds bilaterally, clear to auscultation and percussion. No rales, rhonchi or wheezes noted. No increased work of breathing, no retractions or nasal flaring. Skin: Warm, dry with normal turgor. Normal color with no rashes, no lesions, and no evidence of cellulitis. MS/ Extremity: Pulses equal, no cyanosis. Neurovascular intact. Full, normal range of motion. Constitutional: The patient appears alert, awake, obese, crying Abdomen/GI: Inspection: obese scar(s), are noted in the right upper quadrant, left upper quadrant, right lower quadrant and left lower quadrant, Bowel sounds: normal, Palpation: soft, moderate abdominal tenderness, in the left lower quadrant, laparoscopic incision sites healing appropriately, minor bruising , Vital Signs: 12/31 22:06 BP 112 / 91; Pulse 81; Resp 18; Temp 98; Pulse Ox 98% on R/A; Weight 107.95 kg; Height cm10 5 ft. 1 in. ; Pain 8/10; 01/01 00:41 BP 103 / 63; Pulse 70; Resp 16; Pulse Ox 100% on R/A; jb4 02:14 BP 111 / 73; Pulse 79; Resp 16; Pulse Ox 98% on R/A; jb4 12/31 22:06 Body Mass Index 44.97 (107.95 kg, 154.94 cm) cm10 12/31 22:06 Pain Scale: Adult cm10 MDM: 12/31 22:24 Patient medically screened. sb4 01/01 01:14 Data reviewed: vital signs, nurses notes, lab test result(s), radiologic studies, I sb4 have discussed the patient's presentation/case with the attending Emergency Department Physician;. 12/31 22:23 Order name: CBC with Diff; Complete Time: 23:15 sb4 12/31 22:23 Order name: CMP; Complete Time: 23:31 sb4 12/31 22:23 Order name: Lipase; Complete Time: 23:31 sb4 12/31 22:23 Order name: Test, Serum; Complete Time: 23:57 sb4 12/31 22:23 Order name: CT Abd/Pelvis - IV Contrast Only sb4 12/31 22:23 Order name: IV Saline Lock; Complete Time: 23:00 sb4 12/31 22:23 Order name: Labs collected and sent; Complete Time: 23:00 sb4 Administered Medications: 12/31 23:00 Drug: NS 0.9% IV 1000 ml IV at 1 bolus Per protocol; 1000 mL bolus Route: IV; Rate: 1 jb4 bolus; Site: right antecubital; 23:00 Drug: Ondansetron IVP 4 mg IVP once; over 2 minutes Route: IVP; Site: right antecubital;jb4 23:00 Drug: morphine IVP or IV 4 mg IVP once over 4 mins Route: IVP; Infused Over: 4 mins; jb4 Site: right antecubital; 01/01 00:49 Drug: fentaNYL (PF) IVP 50 mcg IVP once Route: IVP; Site: right antecubital; jb4 Disposition Summary: 01/02/24 01:16 Transfer Ordered Notes: Transfer Location: [facility]-System sb4 Reason: Higher level of care sb4 Condition: Fair sb4 Problem: new sb4 Symptoms: are unchanged sb4 Accepting Physician: trauma(01/02/24 02:15) jb4 Diagnosis - traumatic splenic laceration, grade 3 sb4 Forms: - Medication Reconciliation Form sb4 - SBAR form sb4 Signatures: Dispatcher [employer] EDJonn Laguna RN RN jb4 Dia Chou PA-C PAMaddy Rosenbaum RN RN cm10 Corrections: (The following items were deleted from the chart) 01:18 05 23:18 patient states that she was walking down her stairs this afternoon when her sb4 dog tripped her, causing her to fall down 7 stairs, landing on her abdomen. she is concerned because she had gastric bypass surgery done 8 days ago at [facility] and is worried she damaged her surgical sites. sb4 01/01 02:15 01:16 trauma sb4 jb4
--- NOTE | 2024-01-02 01:17 | ER ---
Nurse's Notes [facility] Name: Lizzeth Almaraz Age: 38 yrs Sex: Female : 1985 Arrival Date: 01/01/2024 Time: 21:55 Bed 15 Private MD: Diagnosis: traumatic splenic laceration, grade 3 Presentation: 12/31 22:06 Chief complaint: Patient states: Was going downstairs and her dog tripped and she fell cm10 down approximately 6-7 steps. Pt states that she is having abdominal pain, did hit her head no LOC. Pt had gastric bypass on 12/22. Coronavirus screen: Client denies travel out of the [place] in the last 14 days. At this time, the client does not indicate any symptoms associated with coronavirus-19. Ebola Screen: Patient denies travel to an Ebola-affected area in the 21 days before illness onset. No symptoms or risks identified at this time. Initial Sepsis Screen: Does the patient meet any 2 criteria? No. Patient's initial sepsis screen is negative. Does the patient have a suspected source of infection? No. Patient's initial sepsis screen is negative. Risk Assessment: Do you want to hurt yourself or someone else? Patient reports no desire to harm self or others. Onset of symptoms was January 01, 2024. 22:06 Method Of Arrival: Wheelchair cm10 22:06 Acuity: SAKSHI 3 cm10 Triage Assessment: 22:09 General: Appears in no apparent distress. uncomfortable, Behavior is calm, cooperative. cm10 Pain: Complains of pain in abdomen Pain does not radiate. Pain currently is 8 out of 10 on a pain scale. Quality of pain is described as pressure, sharp, shooting, Pain began suddenly. Neuro: No deficits noted. Level of Consciousness is awake, alert, obeys commands, Oriented to person, place, time, situation. Respiratory: No deficits noted. Airway is patent Respiratory effort is even, unlabored, Respiratory pattern is regular, symmetrical. Historical: - Allergies: 22:08 Sulfa (Sulfonamide Antibiotics); cm10 - PMHx: 22:08 Gastroesophageal reflux disease; Hypothyroidism; cm10 - PSHx: 22:08 Total abdominal hysterectomy; Gastric Bypass (December 23, 2023); cm10 - Immunization history:: Adult Immunizations up to date. - Infectious Disease History:: Denies. - Social history:: Smoking status: Patient denies any tobacco usage or history of. Screenin:30 [facility] ED Fall Risk Assessment (Adult) History of falling in the last 3 months, jb4 including since admission Yes- single mechanical fall (1 pt) Confusion or Disorientation No (0 pts) Intoxicated or Sedated No (0 pts) Impaired Gait No (0 pts) Mobility Assist Device Used No (0 pt) Altered Elimination No (0 pt) Score/Fall Risk Level 0 - 2 = Low Risk Oriented to surroundings, Maintained a safe environment. Abuse screen: Denies threats or abuse. Nutritional screening: No deficits noted. Tuberculosis screening: No symptoms or risk factors identified. Assessment: 22:30 General: Appears in no apparent distress. uncomfortable, Behavior is calm, cooperative, jb4 appropriate for age. Pain: Complains of pain in abdomen Pain does not radiate. Pain currently is 8 out of 10 on a pain scale. Neuro: Level of Consciousness is awake, alert, obeys commands. Cardiovascular: Patient's skin is warm and dry. Respiratory: Airway is patent Respiratory effort is even, unlabored, Respiratory pattern is regular, symmetrical. GI: Abdomen is obese, Reports upper abdominal pain. Derm: Skin is intact, Skin is pink, warm \T\ dry. Musculoskeletal: Circulation, motion, and sensation intact. Range of motion: intact in all extremities. 01/01 00:00 Reassessment: Patient appears in no apparent distress at this time. Patient and/or jb4 family updated on plan of care and expected duration. Pain level reassessed. Patient is alert, oriented x 3, equal unlabored respirations, skin warm/dry/pink. 01:17 Reassessment: Patient appears in no apparent distress at this time. Patient and/or jb4 family updated on plan of care and expected duration. Pain level reassessed. Patient is alert, oriented x 3, equal unlabored respirations, skin warm/dry/pink. Vital Signs: 12/31 22:06 BP 112 / 91; Pulse 81; Resp 18; Temp 98; Pulse Ox 98% on R/A; Weight 107.95 kg; Height cm10 5 ft. 1 in. ; Pain 8/10; 01/01 00:41 BP 103 / 63; Pulse 70; Resp 16; Pulse Ox 100% on R/A; jb4 02:14 BP 111 / 73; Pulse 79; Resp 16; Pulse Ox 98% on R/A; jb4 12/31 22:06 Body Mass Index 44.97 (107.95 kg, 154.94 cm) cm10 12/31 22:06 Pain Scale: Adult cm10 ED Course: 12/31 21:57 Patient arrived in ED. mr 22:08 Triage completed. cm10 22:09 Arm band placed on Patient placed in an exam room, on a stretcher. cm10 22:12 Dia Chou PA-C is PHCP. sb4 22:12 Aquilino Corona MD is Attending Physician. sb4 22:30 Patient has correct armband on for positive identification. Bed in low position. Call jb4 light in reach. Side rails up X 1. Provided Education on: plan of care. 22:51 Missed attempt(s): 22 gauge in right antecubital area. vk 23:00 CBC with Diff Sent. jb4 23:00 CMP Sent. jb4 23:00 Lipase Sent. jb4 23:00 Initial lab(s) drawn, by wi, sent to lab. Inserted saline lock: 18 gauge in right jb4 antecubital area, using aseptic technique. Blood collected. 23:57 CT Abd/Pelvis - IV Contrast Only In Process Unspecified. EDMS 01/01 01:10 PHCP role handed off by Dia Chou PA-C cp 01:10 Aquilino Mccracken PA is PHCP. cp 01:17 Jonn Brasher, RN is Primary Nurse. jb4 02:14 No provider procedures requiring assistance completed. Patient transferred, IV remains jb4 in place. Administered Medications: 12/31 23:00 Drug: NS 0.9% IV 1000 ml IV at 1 bolus Per protocol; 1000 mL bolus Route: IV; Rate: 1 jb4 bolus; Site: right antecubital; 23:00 Drug: Ondansetron IVP 4 mg IVP once; over 2 minutes Route: IVP; Site: right antecubital;jb4 23:00 Drug: morphine IVP or IV 4 mg IVP once over 4 mins Route: IVP; Infused Over: 4 mins; jb4 Site: right antecubital; 01/01 00:49 Drug: fentaNYL (PF) IVP 50 mcg IVP once Route: IVP; Site: right antecubital; jb4 Medication: 02:14 VIS not applicable for this client. jb4 Outcome: 01:16 ER care complete, transfer ordered by sb4 02:14 Transferred by ground EMS [facility] to [facility], Transfer form jb4 completed. X-rays sent w/ patient. 02:14 Condition: stable 02:14 Discharge instructions given to patient, Instructed on the need for transfer, Demonstrated understanding of instructions, 02:15 Patient left the ED. jb4 Signatures: Dispatcher [employer] EDMS NobleDonita, Reg Reg mr Aquilino Mccracken, PA Jonn Guzmán cp, RN RN jb4 Dia Chou PA-C PA-C [email or web address] Maddy Jay, RN RN cm10 Karly Colunga Corrections: (The following items were deleted from the chart) 01:18 05/02 22:30 GI: Abdomen is obese, jb4 jb4
[2024-01-02 15:34] VITALS: BP 111/73; TEMP 98; O2SAT 98
--- NOTE | 2024-01-03 14:10 | RAD REPORT ---
EXAM DESCRIPTION: ADDENDUM #1 Critical findings were discussed with and acknowledged by NNAMDI Chou on 01/02/2024 1: 09 AM CDT. Electronically signed by: Mathew Cardona MD 01/02/2024 01:26 AM CDT End of Addendum CLINICAL HISTORY: BLUNT TRAUMA COMPARISON: None. TECHNIQUE: CT ABDOMEN PELVIS WITH IV CONTRAST on 01/01/2024 10:23 PM CDT This exam was performed according to our departmental dose-optimization program, which includes autom ated exposure control, adjustment of the mA and/or kV according to patient size and/or use of iterati ve reconstruction technique. FINDINGS: There is a small left pleural effusion. Abdomen: The liver is normal in appearance. There is no biliary dilatation. Gastric bypass was perfor med. There is a laceration involving the medial spleen extending for a length of at least 4.5 cm. [place] creas is unremarkable. Adrenal glands are normal. There are several small cysts within the right kidn ey measuring up to 1.7 cm. There is no hydronephrosis. Abdominal aorta is normal in course and caliber without aneurysm. There is no free air. There is no r etroperitoneal adenopathy. Pelvis: There is no bowel obstruction. Urinary bladder is unremarkable. There is no free fluid. Hyste rectomy was performed. Appendix is normal. Skeleton: There are no acute osseous findings. No suspicious bony lesions. IMPRESSION: Medial splenic laceration, likely grade 3. Electronically signed by: Mathew Cardona MD 01/02/2024 01:07 AM CDT Due to temporary technical issues with the PACS/Fluency reporting system, reports are being signed by the in house radiologists without review as a courtesy to insure prompt reporting. The interpreting radiologist is fully responsible for the content of the report.
== END 2024-01-02 02:15 | disposition short-term general hospital (02) ==
LOC: ER 21:55
DX: S36.031A Moderate laceration of spleen, initial encounter (principal); W10.8XXA Fall (on) (from) other stairs and steps, initial encounter; Z98.84 Bariatric surgery status; Z88.2 Allergy status to sulfonamides
CPT/HCPCS: 85025; 36415; 84703; 83690; 80053; 74177; 96375; 96374; 99285; Q9967; J3010; J2405; J7030

== ENCOUNTER 2024-02-09 03:47 | Emergency (ER) | payer OTHER ==
[2024-02-09] MEDS ORDERED: ONDANSETRON 4 MG/2 ML VIAL ONE (04:23)
[2024-02-09] MEDS ORDERED: MORPHINE 4 MG/ML SYR ONE (04:23)
[2024-02-09] MEDS ORDERED: NA CHLORIDE 0.9% 1,000 ML ONE (04:23)
[2024-02-09 04:34] LABS: Absolute Eosinophils 0.3 K/uL (0-0.5); Absolute Lymphocytes (CBC) 2.5 K/uL (0.7-4.9); Absolute Monocytes 0.6 K/uL (0.1-1.3); Absolute Neutrophil 4.9 K/uL (1.8-8.0); Basophils % 0.3 % (0-1.3); Eosinophils % 3.7 % (0-4.4); Hematocrit 41.6 % (36.0-45.0); Hemoglobin 13.9 g/dL (12.0-15.0); MCHC 33.5 g/dL (32.0-36.0); MCV 83.6 fL (80-100); MPV 9.1 fL (7.6-11.3); Monocytes % 6.8 % (3.3-12.3); Neutrophils % 59.2 % (41.7-73.7); Nucleated Red Blood Cells % 0.2 % (0-0); Platelets 311 thou/uL (152-406); RBC Red Blood Cell Count 4.97 M/uL (3.86-4.86); Red Cell Distribution Width 19.9 % (12.1-15.2)
[2024-02-09 04:46] LABS: Albumin 3.4 g/dL (3.4-5.0); Albumin/Globulin Ratio 0.9 (1.1-1.8); Anion Gap 8.1 mEq/L (5.0-15.0); Bilirubin Total 1.2 mg/dL (0.2-1.0); Globulin 3.9 g/dL (2.3-3.5); Potassium 3.1 mEq/L (3.5-5.1); Protein, Total 7.3 g/dL (6.4-8.2)
--- NOTE | 2024-02-09 07:15 | EDPHYS ---
Physician Documentation [facility] Name: Lizzeth Almaraz Age: 38 yrs Sex: Female : 1985 Arrival Date: 02/09/2024 Time: 03:47 Bed 6 Private MD: ED Physician Jac Quiñonez HPI: 02/08 04:10 This 38 yrs old Female presents to ER via Ambulatory with complaints of Abdominal Pain, rn RT SIDE PAIN/HURTS TO WALK. 04:10 The patient presents with abdominal pain in the right upper quadrant. Onset: The rn symptoms/episode began/occurred yesterday. The symptoms do not radiate. Associated signs and symptoms: Pertinent positives: constipation, diarrhea, nausea, Pertinent negatives: fever. Modifying factors: The symptoms are alleviated by nothing, the symptoms are aggravated by touching the area. Severity of pain: At its worst the pain was moderate in the emergency department the pain is unchanged. The patient has experienced a previous episode. Patient reports right-sided abdominal pain that began yesterday, and no fever, no vomiting. Had gastric bypass in November and subsequently had a splenic laceration that was managed nonoperatively. Denies blood in stool. No trauma.. 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 Last tetanus immunization: up to date. - Infectious Disease History:: Denies. - Social history:: Smoking status: Patient denies any tobacco usage or history of. - Family history:: not pertinent. - Hospitalizations: : No recent hospitalization is reported. ROS: 04:10 Constitutional: Negative for fever, chills, and weight loss, Cardiovascular: Negative rn for chest pain, palpitations, and edema, Respiratory: Negative for shortness of breath, cough, wheezing, and pleuritic chest pain, Abdomen/GI: Positive for right-sided abdominal pain with nausea Back: Negative for injury and pain, : Negative for injury, bleeding, discharge, and swelling, MS/Extremity: Negative for injury and deformity, Neuro: Negative for headache, weakness, numbness, tingling, and seizure, Exam: 04:10 Constitutional: This is a well developed, well nourished patient who is awake, alert, rn and in no acute distress. Cardiovascular: Regular rate and rhythm. No pulse deficits. Respiratory: No increased work of breathing, no retractions or nasal flaring. Abdomen/GI: Soft, right-sided and right upper quadrant tenderness. No rebound. Mild guarding. No distention. Vital Signs: 04:07 BP 107 / 62; Pulse 61; Resp 20; Pulse Ox 99% ; Weight 102.06 kg; Height 5 ft. 1 in. ; kb3 Pain 10/10; 04:15 BP 94 / 64; Pulse 72; Resp 20 S; Pulse Ox 95% on R/A; jw7 05:15 BP 100 / 57; Pulse 70; Resp 17 S; Pulse Ox 94% on R/A; jw7 06:30 BP 104 / 61; Pulse 70; Resp 17 S; Pulse Ox 93% on R/A; jw7 07:30 BP 104 / 61; Pulse 71; Resp 18; Pulse Ox 95% on R/A; db 08:00 BP 99 / 58; Pulse 70; Resp 18; Pulse Ox 95% on R/A; db 04:07 Body Mass Index 42.51 (102.06 kg, 154.94 cm) kb3 04:07 Pain Scale: Adult kb3 MDM: 03:53 Patient medically screened. rn 07:12 Differential diagnosis: bowel obstruction, gastritis, gastroesophageal reflux disease, rn Colitis, ulcer, inflammation. Data reviewed: vital signs, nurses notes, lab test result(s), radiologic studies, CT scan, and as a result, I will discharge patient. Counseling: I had a detailed discussion with the patient and/or guardian regarding the historical points, exam findings, and any diagnostic results supporting the discharge/admit diagnosis, lab results, radiology results, the need for outpatient follow up, to return to the emergency department if symptoms worsen or persist or if there are any questions or concerns that arise at home. Response to treatment: the patient's symptoms have mildly improved after treatment, and as a result, I will discharge patient. ED course: CT shows small focal colitis in the right upper quadrant where she is tender. Shows her known splenic laceration that has evolved and is healing. WBC unremarkable. Stable vital signs. Mild improvement. Will discharge home with antibiotics and pain medication with return precautions.. 02/08 04:06 Order name: CBC with Diff; Complete Time: 05: rn 02/08 04:06 Order name: CMP; Complete Time: 05:01 rn 02/08 04:06 Order name: Lipase; Complete Time: 05:01 rn 02/08 04:06 Order name: CT Abd/Pelvis - IV Contrast Only rn 02/08 04:06 Order name: IV Saline Lock; Complete Time: 04:07 rn 02/08 04:06 Order name: Labs collected and sent; Complete Time: 04:07 rn Administered Medications: 04:32 Drug: NS 0.9% IV 1000 ml IV at 1 bolus Per protocol; 1000 mL bolus Route: IV; Rate: 1 jw7 bolus; Site: right antecubital; 07:03 Follow up: Response: No adverse reaction; IV Status: Completed infusion; IV Intake: jw7 1000ml 04:32 Drug: Ondansetron IVP 4 mg IVP once; over 2 minutes Route: IVP; Site: right antecubital;jw7 07:04 Follow up: Response: No adverse reaction; Marked relief of symptoms; Nausea is decreasedjw7 04:32 Drug: morphine IVP or IV 4 mg IVP once over 4 mins Route: IVP; Infused Over: 4 mins; jw7 Site: right antecubital; 07:04 Follow up: Response: No adverse reaction; Marked relief of symptoms; Pain is decreased jw7 07:42 Drug: NS 0.9% IV 500 ml IV at bolus once Route: IV; Rate: bolus; Site: right db antecubital; 08:26 Follow up: Response: No adverse reaction; IV Status: Completed infusion; IV Intake: db 500ml 07:45 Drug: metroNIDAZOLE PO 500 mg PO once Route: PO; db 08:27 Follow up: Response: No adverse reaction db 07:45 Drug: traMADol PO 50 mg PO once Route: PO; db 08:26 Follow up: Response: No adverse reaction db 07:52 Drug: Ciprofloxacin PO 500 mg PO once Route: PO; db 08:27 Follow up: Response: No adverse reaction db Disposition Summary: 02/09/24 07:14 Discharge Ordered Notes: Location: Home rn Problem: new rn Symptoms: have improved rn Condition: Stable rn Diagnosis - Infectious gastroenteritis and colitis, unspecified rn Followup: rn - With: Private Physician - When: As needed - Reason: Recheck today's complaints, Re-evaluation by your physician Discharge Instructions: - Discharge Summary Sheet rn - Colitis rn Forms: - Medication Reconciliation Form rn - 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 - Prescription Opioid Use rn - Patient Portal Instructions rn - Leadership Thank You Letter rn - Work release form db Prescriptions: - ondansetron 4 mg Oral Tablet,disintegrating - take 1 tablet ORAL route every 8 hours As needed; 10 tablet; Refills: 0, rn Product Selection Permitted - Flagyl 500 mg Oral Tablet - take 1 tablet ORAL route every 8 hours for 10 days; 30 tablet; Refills: 0, rn Product Selection Permitted - Cipro 500 mg Oral tablet - take 1 tablet ORAL route every 12 hours for 10 days; 20 tablet; Refills: 0, rn Product Selection Permitted - Tramadol 50 mg Oral Tablet - take 1 tablet ORAL route every 8 hours as needed; 12 tablet; Refills: 0, rn Product Selection Permitted Signatures: Dispatcher [employer] EDJac Persaud MD MD rn Waits, Jodi, RN RN jw7 Adali Faye, RN RN kb3 Stephanie Reese, RN RN db
--- NOTE | 2024-02-09 07:15 | ER ---
Nurse's Notes [facility] Name: Lizzeth Almaraz Age: 38 yrs Sex: Female : 1985 Arrival Date: 02/09/2024 Time: 03:47 Bed 6 Private MD: Diagnosis: Infectious gastroenteritis and colitis, unspecified Presentation: 02/08 04:07 Chief complaint: Patient states: RUQ pain x1 day. Denies N/V/fever. Coronavirus screen: kb3 Vaccine status: Patient reports being unvaccinated. Client denies travel out of the [place] in the last 14 days. Ebola Screen: Patient negative for fever greater than or equal to 101.5 degrees Fahrenheit, and additional compatible Ebola Virus Disease symptoms Patient denies exposure to infectious person. Patient denies travel to an Ebola-affected area in the 21 days before illness onset. Initial Sepsis Screen: Does the patient meet any 2 criteria? No. Patient's initial sepsis screen is negative. Does the patient have a suspected source of infection? No. Patient's initial sepsis screen is negative. Risk Assessment: Do you want to hurt yourself or someone else? Patient reports no desire to harm self or others. Onset of symptoms was February 08, 2024. 04:07 Method Of Arrival: Ambulatory kb3 04:07 Acuity: SAKSHI 3 kb3 Triage Assessment: 04:08 General: Appears in no apparent distress. uncomfortable, Behavior is calm, cooperative. kb3 Pain: Complains of pain in right upper quadrant Pain does not radiate. Pain currently is 10 out of 10 on a pain scale. GI: Abd is soft Abdomen is tender to palpation in right upper quadrant Reports upper abdominal pain, constipation, diarrhea, Patient currently denies nausea, vomiting. 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 Last tetanus immunization: up to date. - Infectious Disease History:: Denies. - Social history:: Smoking status: Patient denies any tobacco usage or history of. - Family history:: not pertinent. - Hospitalizations: : No recent hospitalization is reported. Screenin:20 Abuse screen: Denies threats or abuse. Denies injuries from another. jw7 04:20 [facility] ED Fall Risk Assessment (Adult) History of falling in the last 3 months, jw7 including since admission No falls in past 3 months (0 pts) Confusion or Disorientation No (0 pts) Intoxicated or Sedated No (0 pts) Impaired Gait No (0 pts) Mobility Assist Device Used No (0 pt) Altered Elimination No (0 pt) Score/Fall Risk Level 0 - 2 = Low Risk Oriented to surroundings, Maintained a safe environment, Educated pt \T\ family on fall prevention, incl call for assistance when getting out of bed. Nutritional screening: No deficits noted. Tuberculosis screening: No symptoms or risk factors identified. Assessment: 04:15 General: Appears in no apparent distress. uncomfortable, Behavior is calm, cooperative, jw7 appropriate for age. General: Behavior is crying. Pain: Complains of pain in right upper quadrant Pain does not radiate. Pain currently is 10 out of 10 on a pain scale. Quality of pain is described as sharp, Pain began 1 day ago. Is continuous. Neuro: Level of Consciousness is awake, alert, obeys commands, Oriented to person, place, time, situation, Appropriate for age. Cardiovascular: Heart tones S1 S2 present Capillary refill < 3 seconds Clubbing of nail beds is absent JVD is absent Patient's skin is warm and dry. Respiratory: Airway is patent Trachea midline Respiratory effort is even, unlabored, Respiratory pattern is regular, symmetrical, Breath sounds are clear bilaterally. GI: Abdomen is round non-distended, obese, Bowel sounds present X 4 quads. Abd is soft X 4 quads Abdomen is tender to palpation in right upper quadrant Reports upper abdominal pain, constipation, diarrhea. : No deficits noted. No signs and/or symptoms were reported regarding the genitourinary system. EENT: No deficits noted. No signs and/or symptoms were reported regarding the EENT system. Derm: Skin is intact, is healthy with good turgor, Skin is dry, Skin is normal, Skin temperature is warm. Musculoskeletal: Circulation, motion, and sensation intact. Range of motion: intact in all extremities. 05:30 Reassessment: Patient appears in no apparent distress at this time. Patient and/or jw7 family updated on plan of care and expected duration. Pain level reassessed. Patient is alert, oriented x 3, equal unlabored respirations, skin warm/dry/pink. Patient states symptoms have improved. 06:30 Reassessment: Patient appears in no apparent distress at this time. Patient and/or jw7 family updated on plan of care and expected duration. Pain level reassessed. Patient is alert, oriented x 3, equal unlabored respirations, skin warm/dry/pink. 08:26 Reassessment: Patient appears in no apparent distress at this time. Patient and/or db family updated on plan of care and expected duration. Pain level reassessed. Patient is alert, oriented x 3, equal unlabored respirations, skin warm/dry/pink. Vital Signs: 04:07 BP 107 / 62; Pulse 61; Resp 20; Pulse Ox 99% ; Weight 102.06 kg; Height 5 ft. 1 in. ; kb3 Pain 10/10; 04:15 BP 94 / 64; Pulse 72; Resp 20 S; Pulse Ox 95% on R/A; jw7 05:15 BP 100 / 57; Pulse 70; Resp 17 S; Pulse Ox 94% on R/A; jw7 06:30 BP 104 / 61; Pulse 70; Resp 17 S; Pulse Ox 93% on R/A; jw7 07:30 BP 104 / 61; Pulse 71; Resp 18; Pulse Ox 95% on R/A; db 08:00 BP 99 / 58; Pulse 70; Resp 18; Pulse Ox 95% on R/A; db 04:07 Body Mass Index 42.51 (102.06 kg, 154.94 cm) kb3 04:07 Pain Scale: Adult kb3 ED Course: 03:52 Patient arrived in ED. gm2 03:52 Jac Quiñonez MD is Attending Physician. rn 04:07 Initial lab(s) drawn, by me, sent to lab. Inserted saline lock: 20 gauge in right [facility] antecubital area, using aseptic technique. Blood collected. 04:08 Triage completed. kb3 04:08 Arm band placed on right wrist. Patient placed in an exam room, on a stretcher. kb3 04:20 Patient has correct armband on for positive identification. Bed in low position. Call [facility] light in reach. Side rails up X 1. Provided Education on: Use of Call Light. 05:38 CT Abd/Pelvis - IV Contrast Only In Process Unspecified. EDMS 07:36 Stephanie Reese, RN is Primary Nurse. db 08:09 Inserted saline lock: Accessed Missed attempt(s): Maintain EMS IV. kb3 08:25 No provider procedures requiring assistance completed. IV discontinued, intact, db bleeding controlled, No redness/swelling at site. 08:25 Pulse ox on. NIBP on. db Administered Medications: 04:32 Drug: NS 0.9% IV 1000 ml IV at 1 bolus Per protocol; 1000 mL bolus Route: IV; Rate: 1 jw7 bolus; Site: right antecubital; 07:03 Follow up: Response: No adverse reaction; IV Status: Completed infusion; IV Intake: jw7 1000ml 04:32 Drug: Ondansetron IVP 4 mg IVP once; over 2 minutes Route: IVP; Site: right antecubital;jw7 07:04 Follow up: Response: No adverse reaction; Marked relief of symptoms; Nausea is decreasedjw7 04:32 Drug: morphine IVP or IV 4 mg IVP once over 4 mins Route: IVP; Infused Over: 4 mins; jw7 Site: right antecubital; 07:04 Follow up: Response: No adverse reaction; Marked relief of symptoms; Pain is decreased jw7 07:42 Drug: NS 0.9% IV 500 ml IV at bolus once Route: IV; Rate: bolus; Site: right db antecubital; 08:26 Follow up: Response: No adverse reaction; IV Status: Completed infusion; IV Intake: db 500ml 07:45 Drug: metroNIDAZOLE PO 500 mg PO once Route: PO; db 08:27 Follow up: Response: No adverse reaction db 07:45 Drug: traMADol PO 50 mg PO once Route: PO; db 08:26 Follow up: Response: No adverse reaction db 07:52 Drug: Ciprofloxacin PO 500 mg PO once Route: PO; db 08:27 Follow up: Response: No adverse reaction db Medication: 08:25 VIS not applicable for this client. db Intake: 07:03 IV: 1000ml; Total: 1000ml. jw7 08:26 IV: 500ml; Total: 1500ml. db Outcome: 07:14 Discharge ordered by rn 08:25 Discharged to home ambulatory, db 08:25 Condition: stable 08:25 Discharge instructions given to patient, Instructed on discharge instructions, follow up and referral plans. Prescriptions given X 4, 08:27 Patient left the ED. db Signatures: Dispatcher [employer] EDJac Persaud MD MD rn Waits, Jodi, RN RN jw7 Adali Faye RN RN kb3 Stephanie Reese, RN RN db Katie Hawthorne 2
[2024-02-09] MEDS ORDERED: metroNIDAZOLE 500 MG TABLET ONE (07:40)
[2024-02-09] MEDS ORDERED: CIPROFLOXACIN HCL 500 MG TAB ONE (07:41)
[2024-02-09] MEDS ORDERED: TRAMADOL HCL 50 MG TAB ONE (07:42)
[2024-02-09] MEDS ORDERED: NA CHLORIDE 0.9% 500 ML ONE (07:42)
[2024-02-09 08:49] VITALS: BP 99/58; O2SAT 95
--- NOTE | 2024-02-09 10:35 | RAD REPORT ---
EXAM DESCRIPTION: CT ABDOMEN PELVIS WITH IV CONTRAST CLINICAL HISTORY: Female, 38 years old, ABD PAIN COMPARISON: 01/01/2024; 10/25/2023 (report only available at the time of dictation) TECHNIQUE: CT acquisition of the abdomen and pelvis following the administration of IV contrast. Cor onal and sagittal reformatted images provided. This exam was performed according to departmental dose -optimization program which includes automated exposure control, adjustment of the mA and/or kV accor ding to patient size, and/or use of iterative reconstruction technique. FINDINGS: SUPPORTIVE DEVICES: None. LOWER CHEST: Mild basilar scarring/atelectasis. Unremarkable imaged heart. ABDOMEN AND PELVIS: Liver: Diffuse hypoenhancement relative to the spleen. Upper normal size. Unchanged cyst along the fa lciform ligament and in the posterior subcapsular right lobe. Gallbladder and bile ducts: Postcholecystectomy changes. Pancreas: Normal. Spleen: Less conspicuous, evolving medial infarct versus laceration. Adrenal glands: Normal. Kidneys and ureters: No acute finding. Unchanged right renal cysts. Bladder: Nondistended without evident abnormality. Reproductive organs: Absent uterus. No identified pelvic mass. 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 Otherwise the stomach, duodenum, and small bowel are unremarkable. The appendix is normal. Trace i nflammatory stranding adjacent to the hepatic flexure of the colon without appreciable wall thickenin g. Lymph nodes: No evident adenopathy. Peritoneum: No evidence of ascites, fluid collection, or free air. Abdominal wall: Post laparoscopy change. Vessels: Unremarkable. MUSCULOSKELETAL: No acute osseous abnormality. IMPRESSION: 1. Subtle inflammatory stranding adjacent to the hepatic flexure of the colon suggesti ve of focal colitis. No obstruction or significant wall thickening. Correlate with symptoms. 2. Otherwise no acute abdominopelvic finding. 3. Evolving splenic laceration or infarct. 4. Additional chronic and incidental findings above. Electronically signed by: Jayden Montano MD 02/09/2024 06:42 AM CDT RP Due to temporary technical issues with the PACS/Fluency reporting system, reports are being signed by the in house radiologist without review as a courtesy to ensure prompt reporting. The interpreting r adiologist is fully responsible for the content of the report.
== END 2024-02-09 08:27 | disposition home or self-care (01) ==
LOC: ER 03:47
DX: A09 Infectious gastroenteritis and colitis, unspecified (principal)
CPT/HCPCS: 96361; 85025; 36415; 83690; 80053; 74177; 96375; 96374; 99285; Q9967; J2405; J7040; J7030

== ENCOUNTER 2024-04-25 05:09 | Emergency (ER) | payer OTHER ==
[2024-04-25] MEDS ORDERED: ONDANSETRON 4 MG/2 ML VIAL ONE (05:40)
[2024-04-25] MEDS ORDERED: CEFTRIAXONE 1000 MG/VIAL ONE (05:40)
[2024-04-25] MEDS ORDERED: KETOROLAC 30 MG/ML INJ ONE (05:40)
[2024-04-25] MEDS ORDERED: MORPHINE 4 MG/ML SYR ONE (05:41)
[2024-04-25] MEDS ORDERED: NA CHLORIDE 0.9% 50 ML ONE (05:41)
[2024-04-25] MEDS ORDERED: NA CHLORIDE 0.9% 1,000 ML ONE (05:41)
[2024-04-25 05:57] LABS: Absolute Basophils 0.1 K/uL (0-0.5); Absolute Eosinophils 0.3 K/uL (0-0.5); Absolute Lymphocytes (CBC) 2.4 K/uL (0.7-4.9); Absolute Monocytes 0.4 K/uL (0.1-1.3); Absolute Neutrophil 4.2 K/uL (1.8-8.0); Basophils % 0.9 % (0-1.3); Eosinophils % 4.1 % (0-4.4); Hematocrit 42.5 % (36.0-45.0); Hemoglobin 13.5 g/dL (12.0-15.0); Lymphocytes % 32.8 % (15.3-44.8); MCH 28.2 pg (27.0-35.0); MCHC 31.8 g/dL (32.0-36.0); MCV 88.7 fL (80-100); MPV 8.7 fL (7.6-11.3); Monocytes % 5.8 % (3.3-12.3); Neutrophils % 56.4 % (41.7-73.7); Platelets 338 thou/uL (152-406); RBC Red Blood Cell Count 4.79 M/uL (3.86-4.86); Red Cell Distribution Width 15.1 % (12.1-15.2)
[2024-04-25 06:13] LABS: Albumin 3.4 g/dL (3.4-5.0); Albumin/Globulin Ratio 0.9 (1.1-1.8); Anion Gap 7.8 mEq/L (5.0-15.0); Bilirubin Total 1.5 mg/dL (0.2-1.0); Globulin 3.8 g/dL (2.3-3.5); Potassium 3.8 mEq/L (3.5-5.1); Protein, Total 7.2 g/dL (6.4-8.2)
[2024-04-25] MEDS ORDERED: PROMETHAZINE 25 MG TABLET ONE (07:52)
[2024-04-25] MEDS ORDERED: LIDOCAINE VISCOUS 2% 10ML ORAL SOLN ONE (07:52)
[2024-04-25] MEDS ORDERED: HYDROCODONE/APAP 10/325 TAB ONE (07:52)
--- NOTE | 2024-04-25 08:14 | ER ---
Nurse's Notes [facility] Name: Lizzeth Almaraz Age: 39 yrs Sex: Female : 1985 Arrival Date: 04/25/2024 Time: 05:09 Bed 5 Private MD: Diagnosis: Other hemorrhoids;External hemorrhoid Presentation: 04/25 05:30 Chief complaint: Patient states: Had a colonoscopy on Friday. Friday I noticed a vc1 know above the rectum. Yesterday it started getting very painful. I can't sit or anything now. Coronavirus screen: Client denies travel out of the [place] in the last 14 days. At this time, the client does not indicate any symptoms associated with coronavirus-19. Ebola Screen: Patient negative for fever greater than or equal to 101.5 degrees Fahrenheit, and additional compatible Ebola Virus Disease symptoms Patient denies exposure to infectious person. Patient denies travel to an Ebola-affected area in the 21 days before illness onset. No symptoms or risks identified at this time. Initial Sepsis Screen: Does the patient meet any 2 criteria? No. Patient's initial sepsis screen is negative. Does the patient have a suspected source of infection? No. Patient's initial sepsis screen is negative. Risk Assessment: Do you want to hurt yourself or someone else? Patient reports no desire to harm self or others. Onset of symptoms was April 21, 2024. 05:30 Method Of Arrival: Ambulatory vc1 05:30 Acuity: SAKSHI 3 vc1 Triage Assessment: 05:35 General: Appears in no apparent distress. uncomfortable, well developed, Behavior is vc1 cooperative, crying. Pain: Complains of pain in anus Pain does not radiate. Pain currently is 10 out of 10 on a pain scale. Quality of pain is described as pressure, sharp, Pain began friday Noted to be grimacing. EENT: No deficits noted. No signs and/or symptoms were reported regarding the EENT system. Neuro: Level of Consciousness is awake, alert, obeys commands, Oriented to person, place, time, situation, Appropriate for age. Cardiovascular: Capillary refill < 3 seconds Patient's skin is warm and dry. Respiratory: Airway is patent Respiratory effort is even, unlabored, Respiratory pattern is regular, symmetrical, Breath sounds are clear bilaterally. GI: No deficits noted. No signs and/or symptoms were reported involving the gastrointestinal system. : No deficits noted. No signs and/or symptoms were reported regarding the genitourinary system. Derm: Skin is intact, is healthy with good turgor, Skin is dry, Skin is normal, Skin temperature is warm. Derm: Abscess located on anus is dime sized, has no drainage. Musculoskeletal: Circulation, motion, and sensation intact. Range of motion: intact in all extremities. 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 - Infectious Disease History:: Denies. - Social history:: Smoking status: Patient denies any tobacco usage or history of. - Family history:: not pertinent. Screenin:33 [facility] ED Fall Risk Assessment (Adult) History of falling in the last 3 months, vc1 including since admission No falls in past 3 months (0 pts) Confusion or Disorientation No (0 pts) Intoxicated or Sedated No (0 pts) Impaired Gait No (0 pts) Mobility Assist Device Used No (0 pt) Altered Elimination No (0 pt) Score/Fall Risk Level 0 - 2 = Low Risk Oriented to surroundings, Maintained a safe environment, Educated pt \T\ family on fall prevention, incl call for assistance when getting out of bed. Abuse screen: Denies threats or abuse. Nutritional screening: No deficits noted. Tuberculosis screening: No symptoms or risk factors identified. Assessment: 05:19 General: Appears uncomfortable, Behavior is cooperative, anxious, crying. Pain: ha1 Complains of pain in anus Pain radiates to pelvis Pain currently is 10 out of 10 on a pain scale. Quality of pain is described as aching, crampy, heavy, pressure, Pain began gradually. Neuro: Level of Consciousness is awake, alert, obeys commands, Oriented to person, place, time, situation. Cardiovascular: Patient's skin is warm and dry. Respiratory: Airway is patent Respiratory effort is even, unlabored, Respiratory pattern is regular, symmetrical. GI: Abdomen is round non-distended, Bowel sounds present X 4 quads. Reports rectal bleeding, rectal pain, fistula and awaiting to have surgery to repair fistula. : No signs and/or symptoms were reported regarding the genitourinary system. Derm: Skin is pink, warm \T\ dry. Musculoskeletal: Circulation, motion, and sensation intact. Range of motion: intact in all extremities. 06:30 Reassessment: Patient and/or family updated on plan of care and expected duration. Pain ha1 level reassessed. Patient is alert, oriented x 3, equal unlabored respirations, skin warm/dry/pink. Patient states feeling better. Patient states symptoms have improved. 07:20 General: Appears in no apparent distress. comfortable, well groomed, well developed, kc6 Behavior is calm, cooperative, appropriate for age. Pain: Pain currently is 7 out of 10 on a pain scale. Neuro: Level of Consciousness is awake, alert, obeys commands, Oriented to person, place, time, situation, Appropriate for age. EENT: No signs and/or symptoms were reported regarding the EENT system. 08:09 Reassessment: Patient appears in no apparent distress at this time. No changes from kc6 previously documented assessment. Patient and/or family updated on plan of care and expected duration. Pain level reassessed. Patient is alert, oriented x 3, equal unlabored respirations, skin warm/dry/pink. Patient states symptoms have not improved. Vital Signs: 05:30 BP 126 / 71; Pulse 74; Resp 16; Temp 97.1; Pulse Ox 98% ; Weight 90.72 kg; Height 5 ft. vc1 1 in. ; Pain 10/10; 07:20 Pulse 74; Resp 16 S; Pulse Ox 94% on R/A; kc6 08:09 BP 118 / 60; Pulse 72; Resp 18 S; Pulse Ox 95% on R/A; kc6 05:30 Body Mass Index 37.79 (90.72 kg, 154.94 cm) vc1 05:30 Pain Scale: Adult vc1 ED Course: 05:12 Patient arrived in ED. jj6 05:30 Kwadwo Khan MD is Attending Physician. sp4 05:30 Inserted saline lock: 20 gauge in right antecubital area, using aseptic technique. ha1 Blood collected. Flushed with 10 mL NS. 05:32 Triage completed. vc1 05:33 Arm band placed on right wrist. vc1 05:34 Patient has correct armband on for positive identification. Placed in gown. Bed in low vc1 position. Call light in reach. Pulse ox on. NIBP on. 05:48 Thi Carmichael RN is Primary Nurse. ha1 05:48 CBC with Diff Sent. ha1 05:49 CMP Sent. ha1 05:49 Lipase Sent. ha1 05:52 Provided Education on: medication administration . ha1 06:58 CT Abd/Pelvis - IV Contrast Only In Process Unspecified. EDMS 07:05 Report given to Tobias RN. bm8 07:17 Report received from Thi Carmichael RN \T\ MANN Wyatt. kc6 08:12 Nicolas Bright MD is Referral Physician. sp4 08:47 No provider procedures requiring assistance completed. IV discontinued, intact, kc6 bleeding controlled, No redness/swelling at site. Pressure dressing applied. Administered Medications: 05:50 Drug: Ketorolac IVP 30 mg IVP once Route: IVP; Site: right antecubital; bm8 07:56 Follow up: Response: No adverse reaction; Pain is unchanged, physician notified kc6 05:50 Drug: morphine IVP or IV 4 mg IVP once over 4 mins Route: IVP; Infused Over: 4 mins; bm8 Site: right antecubital; 07:56 Follow up: Response: No adverse reaction; Pain is unchanged, physician notified; RASS: kc6 Alert and Calm (0) 05:50 Drug: Rocephin - Rocephin (cefTRIAXone) IVPB 1 grams IVPB once over 30 mins; (mix in 50 bm8 mL NS) Route: IVPB; Infused Over: 30 mins; Site: right antecubital; 07:56 Follow up: Response: No adverse reaction; IV Status: Completed infusion; IV Intake: [id number] 05:50 Drug: NS 0.9% IV 1000 ml IV at 1 bolus Per protocol; 1000 mL bolus Route: IV; Rate: 1 bm8 bolus; Site: right antecubital; 07:57 Follow up: Response: No adverse reaction; IV Status: Completed infusion; IV Intake: kc6 1000ml 05:50 Drug: Ondansetron IVP 4 mg IVP once; over 2 minutes Route: IVP; Site: right antecubital;bm8 07:56 Follow up: Response: No adverse reaction kc6 07:55 Drug: Mcd[place] PO 10 mg-325 mg 1 tabs PO once Route: PO; kc6 08:47 Follow up: Response: No adverse reaction; Pain is decreased; RASS: Alert and Calm (0) kc6 07:56 Not Given (Physician Discretion): promethazinesuppository 25 mg [place] once kc6 07:56 Drug: Lidocaine Mucous Membrane Gel 2 % 1 application Mucous Membrane once; apply to kc6 anal lesion Route: Mucous Membrane; 08:47 Follow up: Response: No adverse reaction; Pain is decreased kc6 07:57 Drug: Promethazine PO 25 mg PO once Route: PO; kc6 08:46 Follow up: Response: No adverse reaction kc6 Medication: 05:35 VIS not applicable for this client. vc1 Intake: 07:56 IV: 50ml; Total: 50ml. kc6 07:57 IV: 1000ml; Total: 1050ml. kc6 Outcome: 08:13 Discharge ordered by MD. taylor 08:47 Discharged to home ambulatory, kc6 08:47 Condition: good 08:47 Discharge instructions given to patient, Instructed on discharge instructions, follow up and referral plans. no drinking with medication, no driving heavy equipment, medication usage, Demonstrated understanding of instructions, follow-up care, medications, Prescriptions given X 3, 08:47 Patient left the ED. kc6 Signatures: Dispatcher [employer] EDMS Remedios Pedro jj6 Nicole Guillory RN RN vc1 Thi Carmichael RN RN Mirna Aguilera RN RN kc6 Kwadwo Khan MD MD sp4 Edmundo Pascual RN RN bm8
--- NOTE | 2024-04-25 08:14 | EDPHYS ---
Physician Documentation [facility] Name: Lizzeth Almaraz Age: 39 yrs Sex: Female : 1985 Arrival Date: 04/25/2024 Time: 05:09 Bed 5 Private MD: ED Physician Kwadwo Khan HPI: 04/25 05:30 This 39 yrs old Female presents to ER via Unassigned with complaints of sp4 Rectal Pain, Rectal Bleeding. 08:08 39-year-old female presents with acute rectal pain associated with tenderness . 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 - Infectious Disease History:: Denies. - Social history:: Smoking status: Patient denies any tobacco usage or history of. - Family history:: not pertinent. ROS: 08:08 Constitutional: Negative for fever, chills, and weight loss, positive for rectal pain sp4 08:08 All other systems are negative, Exam: 08:08 Constitutional: This is a well developed, well nourished patient who is awake, alert, sp4 and in no acute distress. Head/Face: Normocephalic, atraumatic. Eyes: Pupils equal round and reactive to light, extra-ocular motions intact. Lids and lashes normal. Conjunctiva and sclera are not injected. Cornea within normal limits. Periorbital areas with no swelling, redness, or edema. ENT: Nares patent. No nasal discharge, no septal abnormalities noted. Tympanic membranes are normal and external auditory canals are clear. Oropharynx with no redness, swelling, or masses, exudates, or evidence of obstruction, uvula midline. Mucous membranes moist. Neck: Trachea midline, no thyromegaly or masses palpated, and no cervical lymphadenopathy. Supple, full range of motion without nuchal rigidity, or vertebral point tenderness. Chest/axilla: Normal chest wall appearance and motion. Nontender with no deformity. No lesions are appreciated. Cardiovascular: Regular rate and rhythm with a normal S1 and S2. No gallops, murmurs, or rubs. Normal PMI, no JVD. No pulse deficits. Respiratory: Lungs have equal breath sounds bilaterally, clear to auscultation and percussion. No rales, rhonchi or wheezes noted. No increased work of breathing, no retractions or nasal flaring. Abdomen/GI: Soft, with normal bowel sounds. No distension or tympany. No guarding or rebound. No evidence of tenderness throughout. Back: No spinal tenderness. No costovertebral tenderness. Female : Normal external genitalia. Positive perianal tender area consistent with hemorrhoid Skin: Warm, dry with normal turgor. Normal color with no rashes, no lesions, and no evidence of cellulitis. MS/ Extremity: Pulses equal, no cyanosis. Neurovascular intact. Full, normal range of motion. Neuro: Awake and alert, GCS 15, oriented to person, place, time, and situation. Cranial nerves II-XII grossly intact. Motor strength 5/5 in all extremities. Sensory grossly intact. Psych: Awake, alert, with orientation to person, place and time. Behavior, mood, and affect are within normal limits Vital Signs: 05:30 BP 126 / 71; Pulse 74; Resp 16; Temp 97.1; Pulse Ox 98% ; Weight 90.72 kg; Height 5 ft. vc1 1 in. ; Pain 10/10; 07:20 Pulse 74; Resp 16 S; Pulse Ox 94% on R/A; kc6 08:09 BP 118 / 60; Pulse 72; Resp 18 S; Pulse Ox 95% on R/A; kc6 05:30 Body Mass Index 37.79 (90.72 kg, 154.94 cm) vc1 05:30 Pain Scale: Adult vc1 MDM: 05:37 Patient medically screened. sp4 08:08 Differential diagnosis: hemorrhoids, fissure, abscess, pilonidal cyst, condyloma. Data sp4 reviewed: vital signs, nurses notes, old medical records, radiologic studies, CT scan. ED course: Recommend follow-up with general surgeon for hemorrhoid resection. 04/25 05:37 Order name: CBC with Diff; Complete Time: 07:40 sp4 04/25 05:37 Order name: CMP; Complete Time: 07:40 sp4 04/25 05:37 Order name: Lipase; Complete Time: 07:40 sp4 04/25 05:36 Order name: CT Abd/Pelvis - IV Contrast Only; Complete Time: 08:34 sp4 04/25 05:37 Order name: IV Saline Lock; Complete Time: 05:48 sp4 04/25 05:37 Order name: Labs collected and sent; Complete Time: 05:48 sp4 Administered Medications: 05:50 Drug: Ketorolac IVP 30 mg IVP once Route: IVP; Site: right antecubital; bm8 07:56 Follow up: Response: No adverse reaction; Pain is unchanged, physician notified kc6 05:50 Drug: morphine IVP or IV 4 mg IVP once over 4 mins Route: IVP; Infused Over: 4 mins; bm8 Site: right antecubital; 07:56 Follow up: Response: No adverse reaction; Pain is unchanged, physician notified; RASS: kc6 Alert and Calm (0) 05:50 Drug: Rocephin - Rocephin (cefTRIAXone) IVPB 1 grams IVPB once over 30 mins; (mix in 50 bm8 mL NS) Route: IVPB; Infused Over: 30 mins; Site: right antecubital; 07:56 Follow up: Response: No adverse reaction; IV Status: Completed infusion; IV Intake: [id number] 05:50 Drug: NS 0.9% IV 1000 ml IV at 1 bolus Per protocol; 1000 mL bolus Route: IV; Rate: 1 bm8 bolus; Site: right antecubital; 07:57 Follow up: Response: No adverse reaction; IV Status: Completed infusion; IV Intake: kc6 1000ml 05:50 Drug: Ondansetron IVP 4 mg IVP once; over 2 minutes Route: IVP; Site: right antecubital;bm8 07:56 Follow up: Response: No adverse reaction kc6 07:55 Drug: [place] PO 10 mg-325 mg 1 tabs PO once Route: PO; kc6 08:47 Follow up: Response: No adverse reaction; Pain is decreased; RASS: Alert and Calm (0) kc6 07:56 Not Given (Physician Discretion): promethazinesuppository 25 mg [place] once kc6 07:56 Drug: Lidocaine Mucous Membrane Gel 2 % 1 application Mucous Membrane once; apply to kc6 anal lesion Route: Mucous Membrane; 08:47 Follow up: Response: No adverse reaction; Pain is decreased kc6 07:57 Drug: Promethazine PO 25 mg PO once Route: PO; kc6 08:46 Follow up: Response: No adverse reaction kc6 Disposition Summary: 04/25/24 08:13 Discharge Ordered Notes: Location: Home sp4 Problem: new sp4 Symptoms: have improved sp4 Condition: Stable sp4 Diagnosis - Other hemorrhoids sp4 - External hemorrhoid sp4 Followup: sp4 - With: Nicolas Bright MD - When: 7 - 10 days - Reason: Recheck today's complaints Discharge Instructions: - Discharge Summary Sheet sp4 - Hemorrhoids sp4 Forms: - Prescription Opioid Use sp4 Prescriptions: - Anusol-HC 25 mg Rectal suppository - insert 1 suppository RECTAL route 2 times per day; 20 suppository; Refills: 0, sp4 Product Selection Permitted - Ibuprofen 800 mg Oral Tablet - take 1 tablet ORAL route every 8 hours As needed take with food; 30 tablet; sp4 Refills: 0, Product Selection Permitted - Tramadol 50 mg Oral tablet - take 1 tablet ORAL route every 8 hours as needed; 20 tablet; Refills: 0, sp4 Product Selection Permitted Signatures: Dispatcher [employer] Nicole Choi, RN RN vc1 Dayana Jasso MD MD sd2 Mirna Ware RN RN kc6 Kwadwo Khan MD MD sp4 Edmundo Pascual, RN RN bm8
--- NOTE | 2024-04-25 08:32 | RAD REPORT ---
EXAM DESCRIPTION: CT - Abdomen Pelvis W Contrast - 04/25/2024 6:57 am CLINICAL HISTORY: rectal pain and nodule COMPARISON: Abdomen Pelvis W Contrast dated 02/09/2024; Abdomen Pelvis W Contrast dated 01/01/2024; Abdomen Pelvis W Contrast dated 10/25/2023 TECHNIQUE: Thin cut axial CT imaging of the abdomen and pelvis was performed following intravenous a dministration of iodinated contrast. Multiplanar reformats were generated and reviewed. All CT scans are performed using dose optimization technique as appropriate and may include automated exposure control or mA/KV adjustment according to patient size. FINDINGS: No suspicious findings in the lung bases. The liver shows a 1.4 cm subcapsular hypoattenuating lesion adjacent to the falciform fissure, may re present a small cyst versus focal fatty infiltration. Spleen, adrenal glands, and pancreas show no mendoza spicious findings. Symmetric renal function is seen with no hydronephrosis or suspicious renal mass. Incidentally noted right superior pole 1.7 cm fluid density lesion suggesting a cyst. Sequelae of gastric bypass and cholecystectomy. No dilated bowel loops or bowel wall thickening. No f ree air, free fluid or inflammatory stranding. No hernia, mass or bulky lymphadenopathy. The urinary bladder is without significant finding. No suspicious bony findings. No inflammatory changes or fluid collections with attention to the perianal region and perineum. IMPRESSION: No acute intra-abdominal process. Specifically, no suspicious findings with attention to the perianal region and perineum. Incidental findings as above.
[2024-04-25 09:12] VITALS: TEMP 97.1
[2024-04-25 09:15] VITALS: BP 118/60; O2SAT 95
== END 2024-04-25 08:47 | disposition home or self-care (01) ==
LOC: ER 05:09
DX: K64.8 Other hemorrhoids (principal); K64.4 Residual hemorrhoidal skin tags
CPT/HCPCS: 96365; 85025; 36415; 83690; 80053; 74177; 96375; 99284; 96366; Q9967; Q0169; J2405; J7030; J0696

== ENCOUNTER 2024-05-19 19:28 | Emergency (ER) | payer OTHER ==
[2024-05-19] MEDS ORDERED: PROMETHAZINE 25 MG TABLET ONE (20:39)
[2024-05-19] MEDS ORDERED: KETOROLAC 30 MG/ML INJ ONE (20:39)
[2024-05-19] MEDS ORDERED: DIAZEPAM 5 MG TABLET ONE (20:40)
[2024-05-19] MEDS ORDERED: MORPHINE 4 MG/ML SYR ONE (20:40)
--- NOTE | 2024-05-19 20:42 | EDPHYS ---
Physician Documentation [facility] Name: Lizzeth Almaraz Age: 39 yrs Sex: Female : 1985 Arrival Date: 05/19/2024 Time: 19:28 Bed 19 Private MD: ED Physician Kwadwo Khan HPI: 05/19 20:05 This 39 yrs old Female presents to ER via Wheelchair with complaints of sp4 Rectal Pain - Post Sx. 21:28 39-year-old female presents with complaint of rectal pain bleeding and mucousy sp4 discharge. Patient states she had anal abscess and anal fistula surgery by Dr. Yepez at [facility] on 05/05/2024. Since then pain has been on and off but intensified today with bloody bowel movement and mucousy discharge. . 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 - Infectious Disease History:: Denies. - Social history:: Smoking status: Patient denies any tobacco usage or history of. - Family history:: not pertinent. ROS: 21:28 Constitutional: Negative for fever, chills, and weight loss, Positive have anorectal sp4 pain and positive bleeding with bowel movements 21:28 All other systems are negative, Exam: 21:28 Constitutional: This is a well developed, well nourished patient who is awake, alert, sp4 and in no acute distress. Head/Face: Normocephalic, atraumatic. Eyes: Pupils equal round and reactive to light, extra-ocular motions intact. Lids and lashes normal. Conjunctiva and sclera are not injected. Cornea within normal limits. Periorbital areas with no swelling, redness, or edema. ENT: Nares patent. No nasal discharge, no septal abnormalities noted. Tympanic membranes are normal and external auditory canals are clear. Oropharynx with no redness, swelling, or masses, exudates, or evidence of obstruction, uvula midline. Mucous membranes moist. Neck: Trachea midline, no thyromegaly or masses palpated, and no cervical lymphadenopathy. Supple, full range of motion without nuchal rigidity, or vertebral point tenderness. Chest/axilla: Normal chest wall appearance and motion. Nontender with no deformity. No lesions are appreciated. Cardiovascular: Regular rate and rhythm with a normal S1 and S2. No gallops, murmurs, or rubs. Normal PMI, no JVD. No pulse deficits. Respiratory: Lungs have equal breath sounds bilaterally, clear to auscultation and percussion. No rales, rhonchi or wheezes noted. No increased work of breathing, no retractions or nasal flaring. Abdomen/GI: Soft, with normal bowel sounds. No distension or tympany. No guarding or rebound. No evidence of tenderness throughout. Back: No spinal tenderness. No costovertebral tenderness. Female : Normal external genitalia. Female director of medical services present, rectal exam reveals what appears to be postoperative incision to anal area at 6:00 o'clock no active bleeding, small amount of mucus type discharge, also external skin tag. No sign of active bleeding, no sign of mass, no sign of perianal or rectal abscess. Skin: Warm, dry with normal turgor. Normal color with no rashes, no lesions, and no evidence of cellulitis. MS/ Extremity: Pulses equal, no cyanosis. Neurovascular intact. Full, normal range of motion. Neuro: Awake and alert, GCS 15, oriented to person, place, time, and situation. Cranial nerves II-XII grossly intact. Motor strength 5/5 in all extremities. Sensory grossly intact. Psych: Awake, alert, with orientation to person, place and time. Behavior, mood, and affect are within normal limits Vital Signs: 19:36 BP 117 / 68; Pulse 67; Resp 19; Temp 98.5(O); Pulse Ox 99% on R/A; MAP 80 mmHg; Weight tm6 88.45 kg; Height 5 ft. 1 in. ; Pain 10/10; 22:13 BP 114 / 67; Pulse 64; Resp 18; Temp 98.5; Pulse Ox 99% ; cp4 19:36 Body Mass Index 36.84 (88.45 kg, 154.94 cm) tm6 19:36 Pain Scale: Adult tm6 [place] Coma Score: 21:28 Eye Response: spontaneous(4). Motor Response: obeys commands(6). Verbal Response: sp4 oriented(5). Total: 15. MDM: 20:20 Patient medically screened. sp4 21:31 Differential diagnosis: hemorrhoids, fissure, abscess, pilonidal cyst, condyloma. Data sp4 reviewed: vital signs, nurses notes, old medical records. ED course: Patient is stable for discharge home with pain medications. Also stool softener. Patient advised to see her colorectal surgeon Dr. Yepez in 1 to 2 days for office examination. Administered Medications: 20:46 Drug: morphine IVP or IV 4 mg IVP once over 4 mins {Note: Given IM per MD order. Right cp4 hip.} Route: IVP; Infused Over: 4 mins; Site: Other; 22:14 Follow up: Response: No adverse reaction; Pain is decreased cp4 20:46 Drug: Diazepam PO 5 mg PO once Route: PO; cp4 21:15 Follow up: Response: No adverse reaction; Anxiety decreased cp4 20:46 Drug: Promethazine PO 25 mg PO once Route: PO; cp4 21:15 Follow up: Response: No adverse reaction cp4 20:47 Drug: Ketorolac IM 60 mg IM once Route: IM; Site: left ventrogluteal; cp4 21:15 Follow up: Response: No adverse reaction; Pain is decreased cp4 20:56 Drug: Senokot PO 15 mg PO once Route: PO; cp4 21:15 Follow up: Response: No adverse reaction cp4 Disposition Summary: 05/19/24 20:42 Discharge Ordered Notes: Location: Home sp4 Problem: new sp4 Symptoms: have improved sp4 Condition: Stable sp4 Diagnosis - Rectal Fissure , Rectal Pain , Rectal Bleeding post operative sp4 Followup: sp4 - With: Private Physician - When: 1 - 2 days - Reason: Recheck today's complaints Discharge Instructions: - Discharge Summary Sheet sp4 - Anal Fissure, Adult, [id number] sp4 Forms: - Patient Portal Instructions sp4 Prescriptions: - Senokot-S 8.6-50 mg Oral tablet - take 2 tablet ORAL route every morning daily; 60 tablet; Refills: 0, Product sp4 Selection Permitted - acetaminophen-codeine 300-60 mg Oral tablet - take 1 tablet ORAL route every 8 hours PRN pain; 20 tablet; Refills: 0, Product sp4 Selection Permitted - Cephalexin 500 mg Oral Capsule - take 1 capsule ORAL route every 12 hours for 10 days; 20 capsule; Refills: 0, sp4 Product Selection Permitted - Ibuprofen 800 mg Oral Tablet - take 1 tablet ORAL route every 8 hours As needed take with food; 30 tablet; sp4 Refills: 0, Product Selection Permitted Signatures: Dispatcher [employer] Kwadwo Watt MD MD sp4 Dagmar Herbert cp4 Jj Denise RN RN tm6 Corrections: (The following items were deleted from the chart) 20:07 20:07 Test, Urine+UC.LAB.BRZ ordered. [facility]
--- NOTE | 2024-05-19 20:42 | ER ---
Nurse's Notes [facility] Name: Lizzeth Almaraz Age: 39 yrs Sex: Female : 1985 Arrival Date: 05/19/2024 Time: 19:28 Bed 19 Private MD: Diagnosis: Rectal Fissure , Rectal Pain , Rectal Bleeding post operative Presentation: 05/19 19:37 Chief complaint: Patient states: on April 21 had colonoscopy, that same week I came tm6 here because I was in so much pain. They did a CT and said it was an inflamed hemorrhoid and sent me home with pain killers. My surgeon said it was an abscess that turned into a fistula?. On May 05 my surgeon cut out the fistula and gave me a botox shot. It is still extremely painful, is bleeding, and it is a mucousy discharge. I cannot sleep because of the pain. Coronavirus screen: Vaccine status: Patient reports being unvaccinated. Ebola Screen: Patient negative for fever greater than or equal to 101.5 degrees Fahrenheit, and additional compatible Ebola Virus Disease symptoms Patient denies exposure to infectious person. Patient denies travel to an Ebola-affected area in the 21 days before illness onset. No symptoms or risks identified at this time. Initial Sepsis Screen: Does the patient meet any 2 criteria? No. Patient's initial sepsis screen is negative. Does the patient have a suspected source of infection? No. Patient's initial sepsis screen is negative. Risk Assessment: Do you want to hurt yourself or someone else? Patient reports no desire to harm self or others. Onset of symptoms was April 21, 2024. 19:37 Method Of Arrival: Wheelchair [facility] 19:37 Acuity: SAKSHI 3 tm6 Triage Assessment: 19:40 General: Appears distressed, Behavior is calm, cooperative. Pain: Complains of pain in tm6 buttocks Pain currently is 10 out of 10 on a pain scale. EENT: No signs and/or symptoms were reported regarding the EENT system. Neuro: Level of Consciousness is awake, alert, obeys commands, Oriented to person, place, time, situation. Cardiovascular: Patient's skin is warm and dry. Respiratory: Airway is patent Respiratory effort is even, unlabored, Respiratory pattern is regular, symmetrical. GI: Abdomen is round Reports Pain is 10 out of 10 on a pain scale. rectal pain. : No signs and/or symptoms were reported regarding the genitourinary system. Reports. Derm: No signs and/or symptoms reported regarding the dermatologic system. Musculoskeletal: No signs and/or symptoms reported regarding the musculoskeletal system. BACK HAND: 19:36 LMP N/A - Hysterectomy, Not tm6 Historical: - Allergies: 19:40 Sulfa (Sulfonamide Antibiotics); tm6 19:40 plastic tape; tm6 - PMHx: 19:40 Gastroesophageal reflux disease; Grade 3 Splenic Laceration; Hypothyroidism; tm6 - PSHx: 19:40 Cholecystectomy; Total abdominal hysterectomy; Gastric Bypass (November); tm6 section; - Immunization history:: Client reports having NOT received the Covid vaccine. - Infectious Disease History:: Denies. - Social history:: Smoking status: Patient denies any tobacco usage or history of. - Family history:: not pertinent. Screenin:47 [facility] ED Fall Risk Assessment (Adult) History of falling in the last 3 months, cp4 including since admission No falls in past 3 months (0 pts) Confusion or Disorientation No (0 pts) Intoxicated or Sedated No (0 pts) Impaired Gait No (0 pts) Mobility Assist Device Used No (0 pt) Altered Elimination No (0 pt) Score/Fall Risk Level 0 - 2 = Low Risk Oriented to surroundings, Maintained a safe environment, Assessed \T\ reinforced patient's understanding of fall precautions, Hourly rounding (assess needs \T\ fall precautionary measures) done. Abuse screen: Denies threats or abuse. Nutritional screening: No deficits noted. Tuberculosis screening: No symptoms or risk factors identified. Assessment: 20:47 General: Appears in no apparent distress. uncomfortable, Behavior is calm, cooperative, cp4 appropriate for age. Pain: Complains of pain in buttocks Pain currently is 10 out of 10 on a pain scale. Neuro: Level of Consciousness is awake, alert, obeys commands, Oriented to person, place, time, situation. Cardiovascular: Patient's skin is warm and dry. Respiratory: Airway is patent Respiratory effort is even, unlabored. GI: No signs and/or symptoms were reported involving the gastrointestinal system. : No signs and/or symptoms were reported regarding the genitourinary system. EENT: No signs and/or symptoms were reported regarding the EENT system. Derm: No signs and/or symptoms reported regarding the dermatologic system. Musculoskeletal: No signs and/or symptoms reported regarding the musculoskeletal system. 20:50 Reassessment: Disposition pending. Patient on shot time. cp4 Vital Signs: 19:36 BP 117 / 68; Pulse 67; Resp 19; Temp 98.5(O); Pulse Ox 99% on R/A; MAP 80 mmHg; Weight tm6 88.45 kg; Height 5 ft. 1 in. ; Pain 10/10; 22:13 BP 114 / 67; Pulse 64; Resp 18; Temp 98.5; Pulse Ox 99% ; cp4 19:36 Body Mass Index 36.84 (88.45 kg, 154.94 cm) tm6 19:36 Pain Scale: Adult tm6 [place] Coma Score: 21:28 Eye Response: spontaneous(4). Motor Response: obeys commands(6). Verbal Response: sp4 oriented(5). Total: 15. ED Course: 19:30 Patient arrived in ED. ra3 19:40 Triage completed. tm6 19:40 Arm band placed on right wrist. tm6 20:05 Kwadwo Khan MD is Attending Physician. sp4 20:09 Dagmar Herbert is Primary Nurse. cp4 20:47 Placed in gown. Bed in low position. Call light in reach. Side rails up X 1. Provided cp4 Education on: anal fissure. 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 cp4 22:15 Patient did not have IV access during this emergency room visit. cp4 Administered Medications: 20:46 Drug: morphine IVP or IV 4 mg IVP once over 4 mins {Note: Given IM per MD order. Right cp4 hip.} Route: IVP; Infused Over: 4 mins; Site: Other; 22:14 Follow up: Response: No adverse reaction; Pain is decreased cp4 20:46 Drug: Diazepam PO 5 mg PO once Route: PO; cp4 21:15 Follow up: Response: No adverse reaction; Anxiety decreased cp4 20:46 Drug: Promethazine PO 25 mg PO once Route: PO; cp4 21:15 Follow up: Response: No adverse reaction cp4 20:47 Drug: Ketorolac IM 60 mg IM once Route: IM; Site: left ventrogluteal; cp4 21:15 Follow up: Response: No adverse reaction; Pain is decreased cp4 20:56 Drug: Senokot PO 15 mg PO once Route: PO; cp4 21:15 Follow up: Response: No adverse reaction cp4 Medication: 20:47 VIS not applicable for this client. cp4 Outcome: 20:42 Discharge ordered by . sp4 22:15 Discharged to home ambulatory, cp4 22:15 Condition: stable 22:15 Discharge instructions given to patient, Instructed on discharge instructions, follow up and referral plans. medication usage, Demonstrated understanding of instructions, follow-up care, medications, Prescriptions given X 4, 22:16 Patient left the ED. cp4 Signatures: Kwadwo Khan MD MD sp4 Dagmar Herbert cp4 Jj Denise RN RN tm6 Shira Sheppard 3
[2024-05-19] MEDS ORDERED: DOCUSATE NA/SENNA CONC 1 TAB ONE (20:52)
[2024-05-19 22:27] VITALS: TEMP 98.5; O2SAT 99
[2024-05-19 22:33] VITALS: BP 114/67
== END 2024-05-19 22:16 | disposition home or self-care (01) ==
LOC: ER 19:28
DX: K60.0 Acute anal fissure (principal); L76.22 Postprocedural hemorrhage of skin and subcutaneous tissue following other procedure
CPT/HCPCS: Q0169

== ENCOUNTER 2024-06-23 03:49 | Inpatient (IN) | payer OTHER ==
[2024-06-23 04:49] LABS: Specific Gravity 1.016 (1.005-1.030)
[2024-06-23 04:51] LABS: Absolute Basophils 0.1 K/uL (0-0.5); Absolute Eosinophils 0.2 K/uL (0-0.5); Absolute Lymphocytes (CBC) 2.6 K/uL (0.7-4.9); Absolute Monocytes 0.5 K/uL (0.1-1.3); Absolute Neutrophil 6.4 K/uL (1.8-8.0); Basophils % 0.9 % (0-1.3); Eosinophils % 2.5 % (0-4.4); Hematocrit 42.2 % (36.0-45.0); Hemoglobin 14.2 g/dL (12.0-15.0); Lymphocytes % 26.1 % (15.3-44.8); MCH 29.9 pg (27.0-35.0); MCHC 33.8 g/dL (32.0-36.0); MCV 88.7 fL (80-100); MPV 8.6 fL (7.6-11.3); Monocytes % 5.4 % (3.3-12.3); Neutrophils % 65.1 % (41.7-73.7); Nucleated Red Blood Cells % 0.2 % (0-0); Platelets 391 thou/uL (152-406); RBC Red Blood Cell Count 4.76 M/uL (3.86-4.86); Red Cell Distribution Width 13.9 % (12.1-15.2)
[2024-06-23] MEDS ORDERED: ONDANSETRON 4 MG/2 ML VIAL ONE (04:57)
[2024-06-23] MEDS ORDERED: MORPHINE 4 MG/ML SYR ONE ×2 (04:57→07:22)
[2024-06-23] MEDS ORDERED: KETOROLAC 30 MG/ML INJ ONE (04:57)
[2024-06-23] MEDS ORDERED: NA CHLORIDE 0.9% 1,000 ML ONE ×2 (04:58→06:45)
[2024-06-23 05:07] LABS: Specific Gravity 1.016 (1.005-1.030); Urine Bacteria <20 /HPF (<20); Urine Bilirubin NEGATIVE (Negative); Urine Blood Negative (Negative); Urine Clarity Extremely Turbid (Clear); Urine Color Light-Yellow (Yellow); Urine Culture Reflex Order NOT NEEDED; Urine Glucose NEGATIVE (Negative); Urine Ketones NEGATIVE (Negative); Urine Microscopic Reflex YN ORDER UMIC; Urine Mucus Slight /HPF (None Seen); Urine Nitrite NEGATIVE (Negative); Urine Protein NEGATIVE (Negative); Urine RBC <5 /HPF (None Seen); Urine Urobilinogen Normal (Normal); Urine WBC <5 /HPF (<5)
[2024-06-23 05:08] LABS: Albumin 3.3 g/dL (3.4-5.0); Albumin/Globulin Ratio 0.8 (1.1-1.8); Anion Gap 8.3 mEq/L (5.0-15.0); Globulin 4.2 g/dL (2.3-3.5); Potassium 3.3 mEq/L (3.5-5.1); Protein, Total 7.5 g/dL (6.4-8.2)
[2024-06-23] MEDS ORDERED: CEFTRIAXONE 1000 MG/VIAL ONE (06:44)
[2024-06-23] MEDS ORDERED: METRONIDAZOLE 500mg IVPB 500 MG/100 ML BAG IV ONE (06:45)
--- NOTE | 2024-06-23 07:22 | ER ---
Nurse's Notes [facility] Name: Lizzeth Almaraz Age: 39 yrs Sex: Female : 1985 Arrival Date: 06/23/2024 Time: 03:49 Bed 6 Private MD: Diagnosis: Anorectal abscess Presentation: 06/23 03:54 Chief complaint: Patient states: rectal abscess in sept that i had to have surgery on. lg3 same pain began yesterday and is worsening. Coronavirus screen: Client denies travel out of the [place] in the last 14 days. At this time, the client does not indicate any symptoms associated with coronavirus-19. Ebola Screen: No symptoms or risks identified at this time. Initial Sepsis Screen: Does the patient meet any 2 criteria? No. Patient's initial sepsis screen is negative. Does the patient have a suspected source of infection? No. Patient's initial sepsis screen is negative. Risk Assessment: Do you want to hurt yourself or someone else? Patient reports no desire to harm self or others. Onset of symptoms was June 22, 2024. 03:54 Method Of Arrival: Ambulatory lg3 03:54 Acuity: SAKSHI 3 lg3 Triage Assessment: 03:59 General: Appears in no apparent distress. uncomfortable, Behavior is calm, cooperative. lg3 Pain: Complains of pain in anus. EENT: No deficits noted. No signs and/or symptoms were reported regarding the EENT system. Neuro: No deficits noted. Win Agitation-Sedation Scale (RASS): 0 - Alert and Calm Level of Consciousness is awake, alert, obeys commands, Oriented to person, place, time, situation. Cardiovascular: No deficits noted. Denies chest pain, shortness of breath, Capillary refill < 3 seconds Clubbing of nail beds is absent JVD is absent Patient's skin is warm and dry. Respiratory: No deficits noted. Airway is patent Respiratory effort is even, unlabored, Respiratory pattern is regular, symmetrical. GI: Reports diarrhea. : No signs and/or symptoms were reported regarding the genitourinary system. Derm: Skin is intact, is healthy with good turgor, Skin is dry, Skin is normal, Skin temperature is warm Parent/caregiver reports the patient having rectal pain. Musculoskeletal: No deficits noted. No signs and/or symptoms reported regarding the musculoskeletal system. Circulation, motion, and sensation intact. Range of motion: intact in all extremities. 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 - Infectious Disease History:: Denies. - Social history:: Smoking status: Patient denies any tobacco usage or history of. Patient/guardian denies using alcohol, street drugs. - Family history:: not pertinent. Screenin:35 [facility] ED Fall Risk Assessment (Adult) History of falling in the last 3 months, cp4 including since admission No falls in past 3 months (0 pts) Confusion or Disorientation No (0 pts) Intoxicated or Sedated No (0 pts) Impaired Gait No (0 pts) Mobility Assist Device Used No (0 pt) Altered Elimination No (0 pt) Score/Fall Risk Level 0 - 2 = Low Risk Oriented to surroundings. Abuse screen: Denies threats or abuse. Denies injuries from another. Nutritional screening: No deficits noted. Tuberculosis screening: No symptoms or risk factors identified. Assessment: 03:35 Reassessment: Patient and/or family updated on plan of care and expected duration. Pain cp4 level reassessed. Patient is alert, oriented x 3, equal unlabored respirations, skin warm/dry/pink. General: Appears uncomfortable, obese, Behavior is calm, cooperative. Pain: Complains of pain in gluteal cleft Pain does not radiate. Pain currently is 9 out of 10 on a pain scale. Neuro: Win Agitation-Sedation Scale (RASS): 0 - Alert and Calm Level of Consciousness is awake, alert, obeys commands, Oriented to person, place, time, situation. Cardiovascular: Capillary refill < 3 seconds. Respiratory: Airway is patent Respiratory effort is even, unlabored, Respiratory pattern is regular, symmetrical. GI: No signs and/or symptoms were reported involving the gastrointestinal system. : No signs and/or symptoms were reported regarding the genitourinary system. EENT: No signs and/or symptoms were reported regarding the EENT system. Musculoskeletal: No signs and/or symptoms reported regarding the musculoskeletal system. 05:07 Derm: Abscess located on gluteal cleft Reports pain that is 9 out of 10 on a pain scale.br2 06:10 Reassessment: Patient and/or family updated on plan of care and expected duration. Pain br2 level reassessed. Patient is alert, oriented x 3, equal unlabored respirations, skin warm/dry/pink. Patient states feeling better. Patient states symptoms have improved. 07:41 Reassessment: Patient appears in no apparent distress at this time. Patient and/or hb family updated on plan of care and expected duration. Pain level reassessed. Patient is alert, oriented x 3, equal unlabored respirations, skin warm/dry/pink. 08:12 Reassessment: REPORT FAXED TO 212. bp Vital Signs: 03:54 BP 116 / 73; Pulse 78; Resp 17 S; Temp 98; Pulse Ox 98% on R/A; Weight 86.18 kg (R); lg3 Height 5 ft. 1 in. (R); Pain 9/10; 05:00 BP 107 / 65; Pulse 69; Resp 17 S; Pulse Ox 99% on R/A; br2 06:00 BP 127 / 70; Pulse 71; Resp 18 S; Pulse Ox 99% on R/A; Pain 5/10; br2 06:00 BP 132 / 58; Pulse 71; Resp 18; Pulse Ox 95% on R/A; br2 07:42 BP 109 / 63; Pulse 78; Resp 16; Pulse Ox 97% on R/A; hb 08:12 BP 111 / 54; Pulse 75; Resp 16; Temp 98.1; Pulse Ox 100% ; bp 03:54 Body Mass Index 35.90 (86.18 kg, 154.94 cm) lg3 03:54 Pain Scale: Adult lg3 06:00 Pain Scale: Adult br2 Malcolm Coma Score: 05:06 Eye Response: spontaneous(4). Motor Response: obeys commands(6). Verbal Response: sp4 oriented(5). Total: 15. ED Course: 03:35 Patient has correct armband on for positive identification. Placed in gown. Bed in low cp4 position. Call light in reach. Side rails up X 1. Provided Education on: plan of care. 03:50 Patient arrived in ED. [email or web address] 03:55 Kwadwo Khan MD is Attending Physician. sp4 03:59 Triage completed. lg3 03:59 Arm band placed on right wrist. lg3 04:20 Dagmar Herbert is Primary Nurse. cp4 04:42 Inserted saline lock: 20 gauge in right antecubital area, using aseptic technique. cp4 Blood collected. Flushed with 10 mL NS. 04:55 CBC with Diff Sent. br2 04:55 CMP Sent. br2 04:55 Lipase Sent. br2 04:55 Urinalysis w/ reflexes Sent. 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 br2 05:36 CT Abd/Pelvis - IV Contrast Only In Process Unspecified. EDMS 07:10 Attending Physician role handed off by Kwadwo Khan MD cresencio 07:10 Aquilino Corona MD is Attending Physician. cresencio 07:21 Rajiv Quiñonez MD is Hospitalizing Provider. cresencio 07:41 Served as a rubber and plastics worker during rectal exam. hb 08:12 Patient admitted, IV remains in place. bp Administered Medications: 05:06 Drug: Ondansetron IVP 4 mg IVP once; over 2 minutes Route: IVP; Site: right antecubital;br2 06:56 Follow up: Response: No adverse reaction br2 05:06 Drug: NS 0.9% IV 1000 ml IV at 1 bolus Per protocol; to be given as a bolus over 60 br2 minutes Route: IV; Rate: 1 bolus; Site: right antecubital; 08:05 Follow up: IV Status: Completed infusion bp 05:07 Drug: TORadol - Ketorolac IVP 30 mg IVP once Route: IVP; Site: right antecubital; br2 06:56 Follow up: Response: Pain is decreased br2 05:07 Drug: morphine IVP or IV 4 mg IVP once over 4 mins Route: IVP; Infused Over: 4 mins; br2 Site: right antecubital; 06:56 Follow up: Response: No adverse reaction; Pain is decreased br2 06:55 Drug: Rocephin - Rocephin (cefTRIAXone) IVPB 1 grams IVPB once over 30 mins; (mix in 50 br2 mL NS) Route: IVPB; Infused Over: 30 mins; Site: right antecubital; 06:57 Follow up: Response: No adverse reaction; IV Intake: 10ml br2 08:05 Follow up: IV Status: Completed infusion; IV Intake: 100ml bp 06:55 Drug: metroNIDAZOLE IVPB 500 mg 100 ml IVPB at 200 ml/hr once over 30 mins Volume: 100 br2 ml; Route: IVPB; Rate: 200 ml/hr; Infused Over: 30 mins; Site: right antecubital; 08:05 Follow up: IV Status: Completed infusion; IV Intake: 100ml bp 07:25 Drug: NS 0.9% IV 1000 ml IV at 125 ml/hr continuous Route: IV; Rate: 125 ml/hr; Site: bp right antecubital; 08:05 Follow up: IV Status: Infusion continued upon admission bp 07:25 Drug: morphine IVP or IV 4 mg IVP once over 4 mins Route: IVP; Infused Over: 4 mins; bp Site: right antecubital; 08:05 Follow up: Response: No adverse reaction; Pain is decreased bp Medication: 03:35 VIS not applicable for this client. cp4 Intake: 06:57 IV: 10ml; Total: 10ml. br2 08:05 IV: 100ml; Total: 110ml. bp 08:05 IV: 100ml; Total: 210ml. bp Outcome: 07:22 Decision to Hospitalize by Provider. cresencio 09:22 Patient left the ED. hb Signatures: Dispatcher [employer] EDAquilino Hook MD MD cha Baxter, Heather, RN RN Nicko Pérez RN RN Jennifer Garcia RN RN [email or web address] Remedios Pedro Sergey, MD MD sp4 Potter, Christina cp4 Christine Sanches RN RN br2
--- NOTE | 2024-06-23 07:22 | RAD REPORT ---
EXAM: CT abdomen and pelvis with IV contrast CLINICAL DATA: 39 years Female Rectal pain TECHNICAL DATA: Axial CT imaging of the abdomen and pelvis was performed following the administration of intravenous contrast.. Oral contrast was not administered. Sagittal and coronal reconstructed images were then performed. The CT study is performed according to ALARA (as low as reasonably achievable) or A FELICITA/IMAGE GENTLY, with automatic adjustment of mA and/or kV according to patient size. Performed on: 06/23/2024 at 3:37 AM. Comparison: CT abdomen and pelvis performed on 04/25/2024 FINDINGS: Lung bases: The lung bases are clear. There is minimal bibasilar atelectasis and/or fibrosis. The hea rt is normal in size. Liver: The liver measures approximately 19 cm in craniocaudal dimension. There is a stable focal area of fat deposition along the anterior margin of the left hepatic lobe. Liver attenuation is within normal limits. The hepatic and portal veins are patent. Spleen: The spleen is normal in size, configuration and attenuation. Gallbladder and bile duct: The gallbladder is surgically absent. There is no biliary ductal dilatat ion. Pancreas: The pancreas is grossly normal in size and configuration. Adrenal Glands: The adrenal glands are normal in size and configuration. Kidneys: The kidneys are normal in size and configuration. There is no evidence of hydronephrosis. Th ere is no evidence of nephrolithiasis. There is a stable benign-appearing 1.5 cm cyst arising from the upper pole of the right kidney. Stomach: There are remote postsurgical changes of the stomach consistent with prior gastric bypass. T here is no definite hiatal hernia. Bowel: The bowel gas pattern is non specific and non obstructive. A surgical anastomosis is noted inv olving a small bowel loop in the left hemiabdomen. Appendix: There is no CT evidence of acute appendicitis. Free air: There is no evidence of free air. Free fluid: There is no evidence of free fluid. Vasculature: The aorta is normal in caliber and contour. The inferior vena cava is grossly unremarkab le. Lymphadenopathy: No pathologic lymphadenopathy is identified. Bladder: The bladder is partially distended and is grossly unremarkable as visualized. Reproductive: The uterus is either atrophic or surgically absent. Bones: No acute osseous abnormalities are identified. Soft tissues: No acute soft tissue abnormalities are identified. There is a small fat-containing vent ral umbilical hernia. IMPRESSION: 1. No evidence of acute intra-abdominal or intrapelvic pathology. 2. Remote postsurgical changes of the stomach consistent with prior gastric bypass. 3. Remote cholecystectomy. 4. The uterus is either atrophic or surgically absent. 5. There are no focal abnormalities in the region of the rectum corresponding to the patient's area of clinical concern. Electronically signed by: Tiffani Novoa DO 06/23/2024 07:17 AM CDT RP Due to temporary technical issues with the PACS/FClub reporting system, reports are being nahed d by the in-house radiologist without review as a courtesy to ensure prompt reporting the interpreting radiologist is fully responsible for the content of the report. Transcribed Date/Time: 06/23/2024 7:21 AM
--- NOTE | 2024-06-23 07:23 | EDPHYS ---
Physician Documentation [facility] Name: Lizzeth Almaraz Age: 39 yrs Sex: Female : 1985 Arrival Date: 06/23/2024 Time: 03:49 Bed 6 Private MD: Aquilino Blanco HPI: 06/23 03:55 This 39 yrs old Female presents to ER via Unassigned with complaints of sp4 Rectal Abscess. 05:06 Patient who is known to me from prior visit presents with worsening rectal pain. . sp4 [employer]: 03:59 LMP N/A - Hysterectomy, Not lg3 Historical: - Allergies: 03:59 plastic tape; lg3 03:59 Sulfa (Sulfonamide Antibiotics); lg3 - Home Meds: 03:59 levothyroxine oral [Active]; colestipol oral [Active]; Lialda oral [Active]; lg3 - PMHx: 03:59 Gastroesophageal reflux disease; Grade 3 Splenic Laceration; Hypothyroidism; lg3 - PSHx: 03:59 section; Cholecystectomy; Gastric Bypass (November); Total abdominal lg3 hysterectomy; rectal abcess I\T\D (Total abdominal hysterectomy); - Immunization history:: Adult Immunizations up to date. - Infectious Disease History:: Denies. - Social history:: Smoking status: Patient denies any tobacco usage or history of. Patient/guardian denies using alcohol, street drugs. - Family history:: not pertinent. ROS: 05:06 Constitutional: Negative for fever, chills, and weight loss, positive for rectal pain sp4 05:06 All other systems are negative, Exam: 05:06 Constitutional: This is a well developed, well nourished patient who is awake, alert, sp4 and in no acute distress. Head/Face: Normocephalic, atraumatic. Eyes: Pupils equal round and reactive to light, extra-ocular motions intact. Lids and lashes normal. Conjunctiva and sclera are not injected. Cornea within normal limits. Periorbital areas with no swelling, redness, or edema. ENT: Nares patent. No nasal discharge, no septal abnormalities noted. Tympanic membranes are normal and external auditory canals are clear. Oropharynx with no redness, swelling, or masses, exudates, or evidence of obstruction, uvula midline. Mucous membranes moist. Neck: Trachea midline, no thyromegaly or masses palpated, and no cervical lymphadenopathy. Supple, full range of motion without nuchal rigidity, or vertebral point tenderness. Chest/axilla: Normal chest wall appearance and motion. Nontender with no deformity. No lesions are appreciated. Cardiovascular: Regular rate and rhythm with a normal S1 and S2. No gallops, murmurs, or rubs. Normal PMI, no JVD. No pulse deficits. Respiratory: Lungs have equal breath sounds bilaterally, clear to auscultation and percussion. No rales, rhonchi or wheezes noted. No increased work of breathing, no retractions or nasal flaring. Abdomen/GI: Soft, with normal bowel sounds. No distension or tympany. No guarding or rebound. No evidence of tenderness throughout. Rectal exam reveals small developing redness and fluctuance at the 3:00 area close to the anal sphincter. This consistent with perirectal abscess Pelvic Exam: Normal external genitalia. 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 Normal color with no rashes, no lesions, and no evidence of cellulitis. MS/ Extremity: Pulses equal, no cyanosis. Neurovascular intact. Full, normal range of motion. Neuro: Awake and alert, GCS 15, oriented to person, place, time, and situation. Cranial nerves II-XII grossly intact. Motor strength 5/5 in all extremities. Sensory grossly intact. Psych: Awake, alert, with orientation to person, place and time. Behavior, mood, and affect are within normal limits Vital Signs: 03:54 BP 116 / 73; Pulse 78; Resp 17 S; Temp 98; Pulse Ox 98% on R/A; Weight 86.18 kg (R); lg3 Height 5 ft. 1 in. (R); Pain 9/10; 05:00 BP 107 / 65; Pulse 69; Resp 17 S; Pulse Ox 99% on R/A; br2 06:00 BP 127 / 70; Pulse 71; Resp 18 S; Pulse Ox 99% on R/A; Pain 5/10; br2 06:00 BP 132 / 58; Pulse 71; Resp 18; Pulse Ox 95% on R/A; br2 07:42 BP 109 / 63; Pulse 78; Resp 16; Pulse Ox 97% on R/A; hb 08:12 BP 111 / 54; Pulse 75; Resp 16; Temp 98.1; Pulse Ox 100% ; bp 03:54 Body Mass Index 35.90 (86.18 kg, 154.94 cm) lg3 03:54 Pain Scale: Adult lg3 06:00 Pain Scale: Adult br2 Malcolm Coma Score: 05:06 Eye Response: spontaneous(4). Motor Response: obeys commands(6). Verbal Response: sp4 oriented(5). Total: 15. MDM: 03:56 Medical Screening Exam initiated sp4 05:06 Differential diagnosis: hemorrhoids, fissure, abscess, pilonidal cyst, condyloma. Data sp4 reviewed: vital signs, nurses notes, old medical records, lab test result(s), radiologic studies, CT scan. Consideration of Admission/Observation Escalation of care including admission/observation considered. ED course: Patient will be staffed for admission for perirectal abscess. 06/23 04:09 Order name: CBC with Diff; Complete Time: 06:40 sp4 06/23 04:09 Order name: CMP; Complete Time: 06:40 sp4 06/23 04:09 Order name: Lipase; Complete Time: 06:40 sp4 06/23 04:09 Order name: Test, Urine; Complete Time: 06:40 sp4 06/23 04:09 Order name: Urinalysis w/ reflexes; Complete Time: 06:40 sp4 06/23 04:08 Order name: CT Abd/Pelvis - IV Contrast Only sp4 06/23 04:09 Order name: IV Saline Lock; Complete Time: 04:55 sp4 06/23 04:09 Order name: Labs collected and sent; Complete Time: 04:55 sp4 06/23 06:40 Order name: NPO; Complete Time: 06:55 sp4 Administered Medications: 05:06 Drug: Ondansetron IVP 4 mg IVP once; over 2 minutes Route: IVP; Site: right antecubital;br2 06:56 Follow up: Response: No adverse reaction br2 05:06 Drug: NS 0.9% IV 1000 ml IV at 1 bolus Per protocol; to be given as a bolus over 60 br2 minutes Route: IV; Rate: 1 bolus; Site: right antecubital; 08:05 Follow up: IV Status: Completed infusion bp 05:07 Drug: TORadol - Ketorolac IVP 30 mg IVP once Route: IVP; Site: right antecubital; br2 06:56 Follow up: Response: Pain is decreased br2 05:07 Drug: morphine IVP or IV 4 mg IVP once over 4 mins Route: IVP; Infused Over: 4 mins; br2 Site: right antecubital; 06:56 Follow up: Response: No adverse reaction; Pain is decreased br2 06:55 Drug: Rocephin - Rocephin (cefTRIAXone) IVPB 1 grams IVPB once over 30 mins; (mix in 50 br2 mL NS) Route: IVPB; Infused Over: 30 mins; Site: right antecubital; 06:57 Follow up: Response: No adverse reaction; IV Intake: 10ml br2 08:05 Follow up: IV Status: Completed infusion; IV Intake: 100ml bp 06:55 Drug: metroNIDAZOLE IVPB 500 mg 100 ml IVPB at 200 ml/hr once over 30 mins Volume: 100 br2 ml; Route: IVPB; Rate: 200 ml/hr; Infused Over: 30 mins; Site: right antecubital; 08:05 Follow up: IV Status: Completed infusion; IV Intake: 100ml bp 07:25 Drug: NS 0.9% IV 1000 ml IV at 125 ml/hr continuous Route: IV; Rate: 125 ml/hr; Site: bp right antecubital; 08:05 Follow up: IV Status: Infusion continued upon admission bp 07:25 Drug: morphine IVP or IV 4 mg IVP once over 4 mins Route: IVP; Infused Over: 4 mins; bp Site: right antecubital; 08:05 Follow up: Response: No adverse reaction; Pain is decreased bp Disposition Summary: 06/23/24 07:22 Hospitalization Ordered Notes: Hospitalization Status: Observation cresencio Provider: Rajiv Quiñonez cha Location: Telemetry/MedSurg (observation) cresencio Condition: Stable cresencio Problem: new cresencio Symptoms: have improved cresencio Bed/Room Type: Standard cresencio Room Assignment: 212(06/23/24 08:00) bd Diagnosis - Anorectal abscess cresencio Forms: - Medication Reconciliation Form cresencio - SBAR form cresencio - Leadership Thank You Letter cresencio Signatures: Dispatcher [employer] EDKiana Hdz Corey, MD MD cha Peltier, Brian, RN RN bp Jennifer Pack RN RN lg3 Kwadwo Khan MD MD sp4 Christine Sanches RN RN br2 Corrections: (The following items were deleted from the chart) 04: 04:09 CBC+H.LAB.BRZ ordered. EDMS EDMS 04:09 04:09 COMPREHENSIVE METABOLIC PANEL+C.LAB.BRZ ordered. EDMS EDMS 04:09 04:09 LIPASE+C.LAB.BRZ ordered. EDMS EDMS 04: 04:09 Test, Urine+UC.LAB.BRZ ordered. EDMS EDMS 04:09 04:09 Urinalysis+U.LAB.BRZ ordered. EDMS EDMS 08:00 07:22 cresencio woodard
[2024-06-23 10:06] VITALS: BMI 36.8
--- NOTE | 2024-06-23 10:24 | P.HP ---
Certification for Inpatient Patient admitted to: Observation With expected LOS: <2 Midnights Patient will require the following post-hospital care: None Practitioner: I am a practitioner with admitting privileges, knowledge of patient current condition, hospital course, and medical plan of care. Services: Services provided to patient in accordance with Admission requirements found in Title 42 Section 412.3 of the Code of Federal Regulations Patient History Date of Service: 06/23/24 Reason for admission: Perianal abscess History of Present Illness: 39-year-old female with history of hypothyroidism, GERD, chronic diarrhea who underwent gastric bypass in November of this year presents to the emergency department with concern for perianal abscess. In May she saw a colorectal surgeon Dr. 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 She underwent a procedure with Dr. Yepez, she had been doing well since then. For the last few days has been having rectal pain and for that reason came into the emergency department. She was evaluated in the ER the labs are significant for a potassium of 3.3 CT of the abdomen pelvis was performed which was negative for any acute findings. On exam patient does have a small perianal abscess at the 1 o'clock position. Patient admitted under admission for surgical evaluation of perianal abscess Allergies No Known Allergies Allergy (Verified 06/02/15 13:10) Home Medications: Acyclovir 1 cap PO BID 08/14/15 Vit 87/Iron/Folic/Dha [Prenate Mini Softgel] 1 tab PO DAILY 08/14/15 Codeine/APAP [Tylenol W/Codeine #3 tab] 1 tab PO Q6HP PRN #20 tab 08/16/15 - Past Medical/Surgical History Diabetic: No -: HSV -: Hypothyroidism -: GERD -: Chronic diarrhea -: c section 04/2005 -: c section 05/2006 -: Gastric bypass 12/2023 Psychosocial/ Personal History: Lives at home with her children, family - Family History Father -: Heart disease, Stroke Mother -: Blood disorders - Social History Alcohol use: No CD- Drugs: No Caffeine use: No Place of Residence: Home Physical Examination - Vital Signs Temperature: 97.5 F Blood Pressure: 98/49 Pulse: 65 Respirations: 14 Pulse Ox (%): 95 - Physical Exam General: Alert, In no apparent distress, Oriented x3 HEENT: Atraumatic, PERRLA, EOMI Neck: Supple, 2+ carotid pulse no bruit, No LAD, Without JVD or thyroid abnormality Respiratory: Clear to auscultation bilaterally, Normal air movement Cardiovascular: Regular rate/rhythm, Normal S1 S2 Gastrointestinal: Normal bowel sounds, No tenderness Musculoskeletal: No tenderness Integumentary: Other (Perianal abscess present at around 1 o'clock position ) Neurological: Normal gait, Normal speech, Normal strength at 5/5 x4 extr, Normal tone, Normal affect - Studies Laboratory Data (last 24 hrs) 06/23/24 06/23/24 04:33 04:33 WBC 9.80 Hgb 14.2 Hct 42.2 Plt Count 391 Sodium 140 Potassium 3.3 L BUN 9 Creatinine 0.64 Glucose 87 Total Bilirubin 1.0 AST 34 ALT 55 Alkaline Phosphatase 179 H Lipase 86 H Assessment and Plan - Plan Assessment: Perianal abscess Chronic diarrhea Hypothyroidism GERD History of gastric bypass 12/23 Plan: Perianal abscess Chronic diarrhea NPO, Surgery consult, IV abx Hypothyroidism GERD History of gastric bypass 12/23 Continue home meds when appropriate DVT PPX:SCD Code status:Full Discharge Plan: Home Plan to discharge in: 24 Hours - Advance Directives Does patient have a Living Will: No Does patient have a Durable POA for Healthcare: No - Code Status/Comfort Care Code Status Assessed: Yes (Full code) Critical Care: No Time Spent Managing Pts Care (In Minutes): 57
[2024-06-23] MEDS: Ringers Lactate 1,000 ML IV ONE (15:15)
[2024-06-23] MEDS: NA CHLORIDE 0.9% 1,000 ML IV SCH (15:39)
[2024-06-23] MEDS: LIDOCAINE HCL/EPINEPHRINE 20 ML MDV ONE (15:50)
[2024-06-23] MEDS: FLU (Fluarix Triv) TS24-25(6MOS UP)/PF 45 MCG/0.5 ML Syringe IM ONE (16:00)
[2024-06-23] MEDS: METRONIDAZOLE 500mg IVPB 500 MG/100 ML BAG IV SCH (17:00)
[2024-06-23] MEDS: METHYLENE BLUE 1% 10 ML VIAL ONE (17:40)
--- NOTE | 2024-06-23 17:51 | P.OP ---
Preoperative diagnosis: Perirectal Abscess Postoperative diagnosis: Perirectal Abscess Primary procedure: Exam under anesthesia Secondary procedure: Drainage of Perirectal Abscess Anesthesia: GETA + Local Estimated blood loss: <5cc Specimen: Cultures Findings: 7oclock abscess, no fistula, + hemorrhoids, + fissure Complications: None Implants: Gelfoam with lidocaine Transferred to: Recovery Room () Condition: Good
[2024-06-23] MEDS: LIDOCAINE JELLY 2% 5 ML SYRINGE TOP ONE (17:52)
[2024-06-23] MEDS: FENTANYL CITR 100 MCG/2 ML ONE (18:08)
[2024-06-23] MEDS: KETOROLAC 30 MG/ML INJ ONE (18:08)
--- NOTE | 2024-06-23 18:39 | OP ---
Date of Procedure: 06/23/2024 Surgeon: Nicolas Bright MD, Preoperative Diagnosis: Perirectal abscess. Postoperative Diagnosis: Perirectal abscess. Procedures Performed: 1.Exam under anesthesia. 2.Drainage of perirectal abscess. Anesthesia: General endotracheal plus local. Estimated Blood Loss: Less than 5 cc. Specimen: Culture sent for both aerobic and anaerobic speciation. Findings: 7 o'clock abscess, no fistula, positive hemorrhoids, positive fissure noted at the 6 o'rajinder ck position. Complications: None. Implants: Gelfoam with lidocaine jelly. Disposition: The patient transferred to recovery room in good condition. Procedure In Detail: After informed consent was obtained, patient was brought to the operating room, prepped and draped in the usual sterile fashion after adequate anesthesia was achieved. I injected a perirectal abscess which was palpable at the 7 o'clock position of the patient in a lithotomy posit ion. I then performed digital rectal examination. No blue dye was appreciated, and as such, I perfo rmed sequential inspection of the anus with the anoscope and found no communication. However, a fiss ure was noted at the 6 o'clock position, which had been previously described by the patient. In amauri tion, she had large internal and external anal hemorrhoids in all 3 columns. At this point, the anos cope was removed after placing a piece of Gelfoam with lidocaine into the anal vault. At this point, I turned my attention to the perirectal abscess. I then made an incision over the area down through subcutaneous tissues ultimately encountering an abscess. This was cultured for both aerobic and love erobic speciation. I then opened in its entirety, digitized the area. All the abscess material was drained out, irrigated, and then hemostasis was achieved with electrocautery. The wound was then pac ked with quarter-inch iodoform packing. Sterile dressing was placed over top. The patient tolerated the procedure well without incident or complication, transferred to PACU in good condition. All cou nts were correct at the end of the case. RENUKA/MARIVEL Voice ID: [id number] Report ID: [id number]
[2024-06-23] MEDS: HYDROCODONE/APAP 5/325 MG TAB PO PRN (18:43)
[2024-06-23] MEDS: MORPHINE 2 MG/ML SYR IV PRN (18:43)
[2024-06-23] MEDS: ONDANSETRON 4 MG/2 ML VIAL IV PRN (20:00)
[2024-06-24 06:29] LABS: Anion Gap 6.6 mEq/L (5.0-15.0); Potassium 3.6 mEq/L (3.5-5.1)
[2024-06-24 06:37] LABS: Absolute Eosinophils 0.1 K/uL (0-0.5); Absolute Lymphocytes (CBC) 1.4 K/uL (0.7-4.9); Absolute Monocytes 0.4 K/uL (0.1-1.3); Absolute Neutrophil 3.5 K/uL (1.8-8.0); Basophils % 0.8 % (0-1.3); Eosinophils % 2.4 % (0-4.4); Hematocrit 36.4 % (36.0-45.0); Hemoglobin 12.3 g/dL (12.0-15.0); Lymphocytes % 24.7 % (15.3-44.8); MCH 30.4 pg (27.0-35.0); MCHC 33.7 g/dL (32.0-36.0); MCV 90.3 fL (80-100); MPV 8.9 fL (7.6-11.3); Neutrophils % 64.1 % (41.7-73.7); Nucleated Red Blood Cells % 0.1 % (0-0); Platelets 287 thou/uL (152-406); RBC Red Blood Cell Count 4.03 M/uL (3.86-4.86)
[2024-06-24] MEDS: CEFTRIAXONE 1,000 MG in NA CHLORIDE 0.9% 50 ML IVPB SCH (09:29)
--- NOTE | 2024-06-24 17:04 | P.PN ---
Date of Service: 06/24/24 Subjective: Doing well No acute events overnight ROS: 10 point ROS as noted above, otherwise negative Physical exam GEN: Alert, oriented, NAD HEENT: Normal conjunctiva, sclera anicteric CV: Regular rate and rhythm, no edema Pulm: Nonlabored respirations on room air ABD: Soft, nontender, nondistended MSK: No joint tenderness Integumentary: No rashes, perianal abscess at 7 o'clock position with dressing/packing in place Neuro: Normal speech, normal affect Vitals reviewed Assessment: Perianal abscess S/P I&D 06/23 Chronic diarrhea Hypothyroidism GERD History of gastric bypass 12/23 Plan: Perianal abscess S/P I&D 06/23 Chronic diarrhea Doing Well postoperatively Still having significant pain but well-controlled with medication Continue antibiotics Working on setting up home health as patient has nobody to help her with wound packing Hypothyroidism GERD History of gastric bypass 12/23 Continue home meds DVT PPX:SCD Code status:Full Discharge Plan: Home Plan to discharge in: 24 Hours Time Spent Managing Pts Care (In Minutes): 35
[2024-06-25 06:38] LABS: Anion Gap 9.4 mEq/L (5.0-15.0); Potassium 3.4 mEq/L (3.5-5.1)
[2024-06-25 09:34] VITALS: O2SAT 95
[2024-06-25 10:05] LABS: Absolute Basophils 0.1 K/uL (0-0.5); Absolute Eosinophils 0.3 K/uL (0-0.5); Absolute Lymphocytes (CBC) 1.6 K/uL (0.7-4.9); Absolute Monocytes 0.5 K/uL (0.1-1.3); Absolute Neutrophil 4.7 K/uL (1.8-8.0); Basophils % 0.8 % (0-1.3); Eosinophils % 3.9 % (0-4.4); Hemoglobin 13.2 g/dL (12.0-15.0); Lymphocytes % 21.9 % (15.3-44.8); MCH 30.3 pg (27.0-35.0); MCHC 33.7 g/dL (32.0-36.0); MCV 89.7 fL (80-100); MPV 8.5 fL (7.6-11.3); Monocytes % 6.5 % (3.3-12.3); Neutrophils % 66.9 % (41.7-73.7); Nucleated Red Blood Cells % 0.1 % (0-0); Platelets 319 thou/uL (152-406); RBC Red Blood Cell Count 4.35 M/uL (3.86-4.86); Red Cell Distribution Width 14.2 % (12.1-15.2)
--- NOTE | 2024-06-25 14:45 | P.PN ---
Date of Service: 06/25/24 Subjective: Doing well No acute events overnight ROS: 10 point ROS as noted above, otherwise negative Physical exam GEN: Alert, oriented, NAD HEENT: Normal conjunctiva, sclera anicteric CV: Regular rate and rhythm, no edema Pulm: Nonlabored respirations on room air ABD: Soft, nontender, nondistended MSK: No joint tenderness Integumentary: No rashes, perianal abscess at 7 o'clock position with dressing/packing in place Neuro: Normal speech, normal affect Vitals reviewed Assessment: Perianal abscess S/P I&D 06/23 Chronic diarrhea Hypothyroidism GERD History of gastric bypass 12/23 Plan: Perianal abscess S/P I&D 06/23 Chronic diarrhea Doing Well postoperatively Still having significant pain but well-controlled with medication Continue antibiotics Working on setting up home health as patient has nobody to help her with wound packing Will need daily wound care Hypothyroidism GERD History of gastric bypass 12/23 Continue home meds DVT PPX:SCD Code status:Full Discharge Plan: Home Plan to discharge in: 24 Hours Time Spent Managing Pts Care (In Minutes): 35
[2024-06-25 16:17] VITALS: BP 106/59; TEMP 97.9
--- NOTE | 2024-06-25 16:56 | P.DS ---
Admission Date: 06/24/24 Discharge Date: 06/25/24 Discharge Condition: GOOD Reason for Admission: Perianal abscess Consultations: Dr. Bright Procedures: Perianal abscess I&D Brief History of Present Illness: 39-year-old female with history of hypothyroidism, GERD, chronic diarrhea who underwent gastric bypass in November of this year presents to the emergency department with concern for perianal abscess. In May she saw a colorectal surgeon Dr. 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 She underwent a procedure with Dr. Yepez, she had been doing well since then. For the last few days has been having rectal pain and for that reason came into the emergency department. She was evaluated in the ER the labs are significant for a potassium of 3.3 CT of the abdomen pelvis was performed which was negative for any acute findings. On exam patient does have a small perianal abscess at the 1 o'clock position. Patient admitted under admission for surgical evaluation of perianal abscess Hospital Course: Assessment: Perianal abscess S/P I&D 06/23 Chronic diarrhea Hypothyroidism GERD History of gastric bypass 12/23 Wound care: daily dressing changes of perirectal wound with 1/4" iodoform packing Patient was admitted to the hospital for a perianal wound at the 7 o'clock position. She underwent incision and drainage with Dr. Bright on 06/23 and has been doing well postoperatively. She is stable for discharge with oral antibiotics and pain medications/daily dressing changes. Attempted to set up home health for the wound packing/daily dressing changes but all of the local home health companies were out of network/would not accept her as a patient. Attempts were made at arranging home health from companies in [place] that may travel to the area but we have not heard anything back from them yet. Patient reports she does not have any family at home that can help her with dressing changes at this time but she is anxious to get out of the hospital. We discussed the less than ideal option of going to the emergency department to have the dressings changed as there is not noted that we can offer until home health has been arranged. We will continue to try to arrange home health at discharge. Vital Signs/Physical Exam: Temp Pulse Resp BP Pulse Ox 97.9 F 58 16 106/59 L 94 06/25/24 16:00 06/25/24 16:00 06/25/24 16:26 06/25/24 16:00 06/25/24 16:26 General: Alert, In no apparent distress, Oriented x3 HEENT: Atraumatic, PERRLA Neck: Supple, JVD not distended Respiratory: Clear to auscultation bilaterally, Normal air movement Cardiovascular: Regular rate/rhythm, Normal S1 S2 Gastrointestinal: Normal bowel sounds, No tenderness Musculoskeletal: No tenderness Integumentary: No rashes Neurological: Normal speech, Normal tone, Normal affect Laboratory Data at Discharge: WBC 7.10 thou/uL (4.3-10.9) 06/25/24 09:45 Hgb 13.2 g/dL (12.0-15.0) 06/25/24 09:45 Hct 39.0 % (36.0-45.0) 06/25/24 09:45 Plt Count 319 thou/uL (152-406) 06/25/24 09:45 Sodium 142 mEq/L (136-145) 06/25/24 05:42 Potassium 3.4 mEq/L (3.5-5.1) L 06/25/24 05:42 BUN 6 mg/dL (7-18) L 06/25/24 05:42 Creatinine 0.63 mg/dL (0.55-1.02) 06/25/24 05:42 Glucose 83 mg/dL (74-106) 06/25/24 05:42 Total Bilirubin 1.0 mg/dL (0.2-1.0) 06/23/24 04:33 AST 34 U/L (15-37) 06/23/24 04:33 ALT 55 U/L (13-56) 06/23/24 04:33 Alkaline Phosphatase 179 U/L (45-117) H 06/23/24 04:33 Lipase 86 U/L (13-75) H 06/23/24 04:33 Home Medications: Vit 87/Iron/Folic/Dha [Prenate Mini Softgel] 1 tab PO DAILY 08/14/15 Codeine/APAP [Tylenol #3*] 1 tab PO Q6HP PRN #20 tab 08/16/15 Amox/Clavulanate [Augmentin 875-125 Tab] 875 mg PO BID 7 Days #14 tab 06/24/24 New Medications: Amox/Clavulanate [Augmentin 875-125 Tab] 875 mg PO BID 7 Days #14 tab Physician Discharge Instructions: Wound care: daily dressing changes of perirectal wound with 1/4" iodoform packing Patient was admitted to the hospital for a perianal wound at the 7 o'clock position. She underwent incision and drainage with Dr. Bright on 06/23 and has been doing well postoperatively. She is stable for discharge with oral antibiotics and pain medications/daily dressing changes. Attempted to set up home health for the wound packing/daily dressing changes but all of the local home health companies were out of network/would not accept her as a patient. Attempts were made at arranging home health from companies in [place] that may travel to the area but we have not heard anything back from them yet. Patient reports she does not have any family at home that can help her with dressing changes at this time but she is anxious to get out of the hospital. We discussed the less than ideal option of going to the emergency department to have the dressings changed as there is not noted that we can offer until home health has been arranged. We will continue to try to arrange home health at discharge. Diet: Regular Activity: Ad luc Followup: Nicolas Bright MD [ACTIVE - CAN ADMIT] - 1 Week Obi-Inderjit Kolb MD [Primary Care Provider] - 1-2 Weeks Time spent managing pt's care (in minutes): 45
== END 2024-06-25 19:00 | disposition home or self-care (01) | DRG 346 ==
LOC: ER 03:49 → ERHOLD 07:46 → 2ND 08:13 → OBSVTOIN 06-24 17:04
PROVIDERS: ADMIT Hospitalist; ATTEND Hospitalist
PROC: 0D9P0ZZ Drainage of Rectum, Open Approach (ICD-10-PCS; principal; 2024-06-23 17:00)
PROC: 5A09457 Assistance with Respiratory Ventilation, 24-96 Consecutive Hours, Continuous Positive Airway Pressure (ICD-10-PCS; 2024-06-24)
DX: K61.1 Rectal abscess (principal); E03.9 Hypothyroidism, unspecified; K52.9 Noninfective gastroenteritis and colitis, unspecified; K21.9 Gastro-esophageal reflux disease without esophagitis; Z88.2 Allergy status to sulfonamides; Z98.84 Bariatric surgery status; Z90.49 Acquired absence of other specified parts of digestive tract; Z79.890 Hormone replacement therapy; Z79.899 Other long term (current) drug therapy; Z90.710 Acquired absence of both cervix and uterus
CPT/HCPCS: 36415; 74177; 80048; 80053; 81001; 81025; 83690; 85025; 87070; 87075; 87077; 87186; 87205; 94760; 96361; 96365; 96368; 96375; 99284; G0378; J0696; J2270; J2405; J3010; J7030; J7120; Q9967

== ENCOUNTER 2024-06-26 08:27 | Emergency (ER) | payer OTHER ==
--- NOTE | 2024-06-26 09:31 | ER ---
Nurse's Notes [facility] Name: Lizzeth Almaraz Age: 39 yrs Sex: Female : 1985 Arrival Date: 06/26/2024 Time: 08:27 Bed 19 Private MD: Diagnosis: Encounter for change or removal of surgical wound dressing;Encounter for attention to dressings, sutures and drains Presentation: 06/26 08:36 Chief complaint: Patient states: Here to have wound repacked. Coronavirus screen: ss Client denies travel out of the [place] in the last 14 days. Ebola Screen: Patient denies exposure to infectious person. Patient denies travel to an Ebola-affected area in the 21 days before illness onset. Initial Sepsis Screen: Does the patient meet any 2 criteria? No. Patient's initial sepsis screen is negative. Does the patient have a suspected source of infection? No. Patient's initial sepsis screen is negative. Risk Assessment: Do you want to hurt yourself or someone else? Patient reports no desire to harm self or others. Onset of symptoms is unknown. 08:36 Method Of Arrival: Ambulatory 08:36 Acuity: SAKSHI 5 ss Historical: - Allergies: 08:37 plastic tape; ss 08:37 Sulfa (Sulfonamide Antibiotics); ss - PMHx: 08:37 Gastroesophageal reflux disease; Grade 3 Splenic Laceration; Hypothyroidism; ss - PSHx: 08:37 section; Cholecystectomy; Gastric Bypass (November); rectal abcess I\T\D (ab); ss Total abdominal hysterectomy; - Family history:: not pertinent. Screenin:40 [facility] ED Fall Risk Assessment (Adult) History of falling in the last 3 months, aa5 including since admission No falls in past 3 months (0 pts) Confusion or Disorientation No (0 pts) Intoxicated or Sedated No (0 pts) Impaired Gait No (0 pts) Mobility Assist Device Used No (0 pt) Altered Elimination No (0 pt) Score/Fall Risk Level 0 - 2 = Low Risk Oriented to surroundings, Maintained a safe environment, Educated pt \T\ family on fall prevention, incl call for assistance when getting out of bed. Abuse screen: Denies threats or abuse. Nutritional screening: No deficits noted. Tuberculosis screening: No symptoms or risk factors identified. Assessment: 08:40 General: Appears comfortable, Behavior is calm, cooperative. Pain: Complains of pain in aa5 anus Quality of pain is described as tender. Neuro: Level of Consciousness is awake, alert, obeys commands, Oriented to person, place, time, situation. Cardiovascular: Patient's skin is warm and dry. Respiratory: Airway is patent Respiratory effort is even, unlabored, Respiratory pattern is regular, symmetrical. GI: No signs and/or symptoms were reported involving the gastrointestinal system. : No signs and/or symptoms were reported regarding the genitourinary system. EENT: No signs and/or symptoms were reported regarding the EENT system. Derm: Skin is pink, warm \T\ dry. Incision adjacent to anus noted, measuring approximately 1 in long, very small amount of clear greenish drainage noted to site. Musculoskeletal: Range of motion: intact in all extremities. 09:00 Reassessment: Wound packed with 1/4in iodoform gauze, dressed with gauze and medical aa5 tape per MD orders, pt tolerated well. . 09:00 Reassessment: Patient is alert, oriented x 3, equal unlabored respirations, skin aa5 warm/dry/pink. Vital Signs: 08:36 BP 105 / 70; Pulse 80; Resp 16 S; Temp 98(TE); Pulse Ox 97% on R/A; aa5 ED Course: 08:31 Patient arrived in ED. gm2 08:37 Triage completed. ss 08:37 Arm band placed on right wrist. ss 08:39 Aquilino Corona MD is Attending Physician. cresencio 08:40 Patient has correct armband on for positive identification. Placed in gown. Bed in low aa5 position. Call light in reach. Side rails up X 1. 08:44 Angelia Bonner, MANN is Primary Nurse. aa5 09:30 Nicolas Bright MD is Referral Physician. cresencio 09:31 No provider procedures requiring assistance completed. Patient did not have IV access aa5 during this emergency room visit. Administered Medications: No medications were administered Medication: 09:30 VIS not applicable for this client. aa5 Outcome: :31 Discharge ordered by . cresencio 09:31 Patient left the ED. aa5 09:31 Discharged to home ambulatory, aa5 09:31 Condition: stable 09:31 Instructed on discharge instructions, follow up and referral plans. Demonstrated understanding of instructions, follow-up care, Signatures: Aquilino Corona MD MD cha Calderon, Audri RN RN aa5 Liliana Ha RN RN Katie Samuels 2 Corrections: (The following items were deleted from the chart) 11:12 09:31 Patient left the ED. jayden aa5 11:18 09:00 Reassessment: Wound packed with 1/4 iodoform gauze, dressed with gauze and aa5 medical tape per MD orders, pt tolerated well. . aa5
--- NOTE | 2024-06-26 09:31 | EDPHYS ---
Physician Documentation [facility] Name: Lizzeth Almaraz Age: 39 yrs Sex: Female : 1985 Arrival Date: 06/26/2024 Time: 08: Bed 19 Private MD: ED Physician Aquilino Corona HPI: 06/26 09:20 This 39 yrs old Female presents to ER via Ambulatory with complaints of Wound cresencio Recheck. 09:20 Patient presents to ED for recheck of: abscess, cellulitis. The affected area is on the cresencio gluteal cleft. Previous treatment: The patient was initially treated yesterday. Progress: The patient reports excellent improvement in the affected area. There has been resolution, improvement, or non-development of any drainage, fever, pain, redness or swelling. The patient has not experienced similar symptoms in the past. Historical: - Allergies: 08:37 plastic tape; ss 08:37 Sulfa (Sulfonamide Antibiotics); ss - PMHx: 08:37 Gastroesophageal reflux disease; Grade 3 Splenic Laceration; Hypothyroidism; ss - PSHx: 08:37 section; Cholecystectomy; Gastric Bypass (November); rectal abcess I\T\D (ab); ss Total abdominal hysterectomy; - Family history:: not pertinent. ROS: 09:20 Constitutional: Negative for fever, chills, and weight loss, Eyes: Negative for injury, cresencio pain, redness, and discharge, ENT: Negative for injury, pain, and discharge, Neck: Negative for injury, pain, and swelling, Cardiovascular: Negative for chest pain, palpitations, and edema, Respiratory: Negative for shortness of breath, cough, wheezing, and pleuritic chest pain, Back: Negative for injury and pain, : Negative for injury, bleeding, discharge, and swelling, MS/Extremity: Negative for injury and deformity, Skin: Negative for injury, rash, and discoloration, Neuro: Negative for headache, weakness, numbness, tingling, and seizure, Psych: Negative for depression, anxiety, suicide ideation, homicidal ideation, and hallucinations, Allergy/Immunology: Negative for hives, rash, and allergies, Endocrine: Negative for neck swelling, polydipsia, polyuria, polyphagia, and marked weight changes, Hematologic/Lymphatic: Negative for swollen nodes, abnormal bleeding, and unusual bruising, 09:20 Abdomen/GI: Positive for rectal pain, Exam: 09:20 Constitutional: This is a well developed, well nourished patient who is awake, alert, cresencio and in no acute distress. Head/Face: Normocephalic, atraumatic. Eyes: Pupils equal round and reactive to light, extra-ocular motions intact. Lids and lashes normal. Conjunctiva and sclera are non-icteric and not injected. Cornea within normal limits. Periorbital areas with no swelling, redness, or edema. ENT: Nares patent. No nasal discharge, no septal abnormalities noted. Tympanic membranes are normal and external auditory canals are clear. Oropharynx with no redness, swelling, or masses, exudates, or evidence of obstruction, uvula midline. Mucous membranes moist. Neck: Trachea midline, no thyromegaly or masses palpated, and no cervical lymphadenopathy. Supple, full range of motion without nuchal rigidity, or vertebral point tenderness. No Meningismus. Chest/axilla: Normal chest wall appearance and motion. Nontender with no deformity. No lesions are appreciated. Cardiovascular: Regular rate and rhythm with a normal S1 and S2. No gallops, murmurs, or rubs. Normal PMI, no JVD. No pulse deficits. Respiratory: Lungs have equal breath sounds bilaterally, clear to auscultation and percussion. No rales, rhonchi or wheezes noted. No increased work of breathing, no retractions or nasal flaring. Back: No spinal tenderness. No costovertebral tenderness. Full range of motion. Skin: Warm, dry with normal turgor. Normal color with no rashes, no lesions, and no evidence of cellulitis. MS/ Extremity: Pulses equal, no cyanosis. Neurovascular intact. Full, normal range of motion. Neuro: Awake and alert, GCS 15, oriented to person, place, time, and situation. Cranial nerves II-XII grossly intact. Motor strength 5/5 in all extremities. Sensory grossly intact. Cerebellar exam normal. Normal gait. Psych: Awake, alert, with orientation to person, place and time. Behavior, mood, and affect are within normal limits. 09:20 Abdomen/GI: Inspection: abdomen appears normal, Bowel sounds: normal, Palpation: abdomen is soft and non-tender, Liver: no appreciated palpable abnormalities, Hernia: not appreciated, Vital Signs: 08:36 BP 105 / 70; Pulse 80; Resp 16 S; Temp 98(TE); Pulse Ox 97% on R/A; aa5 Procedures: 09:20 I \T\ D: Prepped with Betadine, Anesthetized with nothing. repacked. cresencio MDM: 08:39 Medical Screening Exam initiated [facility] 09:20 Differential diagnosis: cellulitis. Data reviewed: vital signs, nurses notes. [facility] Consideration of Admission/Observation Escalation of care including admission/observation considered. I considered the following discharge prescriptions or medication management in the emergency department Medications were administered in the Emergency Department. See MAR. Test considered but Not performed: Labs: no labs, wound repacked. Administered Medications: No medications were administered Disposition Summary: 06/26/24 09:31 Discharge Ordered Notes: Location: Home cresencio Problem: new cresencio Symptoms: have improved cresencio Condition: Stable cresencio Diagnosis - Encounter for change or removal of surgical wound dressing cresencio - Encounter for attention to dressings, sutures and drains cresencio Followup: cresencio - With: Private Physician - When: 2 - 3 days - Reason: Recheck today's complaints, Continuance of care, Re-evaluation by your physician Followup: cresencio - With: Nicolas Bright MD - When: 2 - 3 days - Reason: Recheck today's complaints, Continuance of care, Re-evaluation by your physician Discharge Instructions: - Discharge Summary Sheet cresencio - How to Change Your Wound Dressing cresencio - How to Take a Sitz Bath cresencio - How to Change Your Wound Dressing, [id number] [facility] Forms: - Medication Reconciliation Form cresencio - Antibiotic Education cresencio - Prescription Opioid Use cresencio - Patient Portal Instructions [facility] - Leadership Thank You Letter [facility] Signatures: Aquilino Corona MD MD cha Blanchard, Shelby, RN RN ss
[2024-06-26 18:10] VITALS: BP 105/70; TEMP 98; O2SAT 97
== END 2024-06-26 09:31 | disposition home or self-care (01) ==
LOC: ER 08:27
DX: Z48.01 Encounter for change or removal of surgical wound dressing (principal)
CPT/HCPCS: 99282

== ENCOUNTER 2024-06-27 14:04 | Emergency (ER) | payer OTHER ==
--- NOTE | 2024-06-27 15:56 | EDPHYS ---
Physician Documentation [facility] Name: Lizzeth Almaraz Age: 39 yrs Sex: Female : 1985 Arrival Date: 06/27/2024 Time: 14:04 Bed 10 Private MD: ED Physician Papa Nguyen HPI: 06/27 17:06 This 39 yrs old Female presents to ER via Ambulatory with complaints of Wound dr5 Check. 17:06 Patient is 39-year-old female coming in with wound packing removal and repacking. dr5 Patient has appointment with general surgeon tomorrow. Patient denies fever.. 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 Flu vaccine status is unknown. - Infectious Disease History:: Denies. - Social history:: Smoking status: Patient denies any tobacco usage or history of. ROS: 17:06 Constitutional: as per hpi dr5 Exam: 17:06 Constitutional: This is a well developed, well nourished patient who is awake, alert, dr5 and in no acute distress. Head/Face: Normocephalic, atraumatic. 17:06 Skin: Wound recheck: Abscess: the wound has not changed, No packing noted on initial exam. Packed with iodoform 1/4 inch and dressing applied. Recommended patient to follow-up with surgeon tomorrow as scheduled., 17:06 Skin: No surrounding cellulitis noted.. dr5 Vital Signs: 14:15 BP 116 / 76; Pulse 61; Resp 18; Temp 98.6; Pulse Ox 96% ; Weight 86.18 kg; Height 5 ft. hb 1 in. ; 14:15 Body Mass Index 35.90 (86.18 kg, 154.94 cm) hb Procedures: 17:06 I \T\ D: Packed with iodoform gauze, the patient tolerated the procedure well. dr5 MDM: 14:09 Medical Screening Exam initiated dr5 17:06 Differential diagnosis: cellulitis, Abscess, Fistula Track. Data reviewed: vital signs, dr5 nurses notes. Care significantly affected by the following chronic conditions: GERD, Hypothyroidism. Care significantly affected by the following Social Determinants of Health: Poor access to healthcare and/or lack of insurance, Poor access to transportation. Counseling: I had a detailed discussion with the patient and/or guardian regarding the historical points, exam findings, and any diagnostic results supporting the discharge/admit diagnosis, the need for outpatient follow up, for definitive care, a general surgeon, to return to the emergency department if symptoms worsen or persist or if there are any questions or concerns that arise at home. ED course: Wound check and packing tolerated well.. Administered Medications: No medications were administered Disposition Summary: 06/27/24 15:56 Discharge Ordered Notes: Location: Home dr5 Condition: Stable dr5 Diagnosis - Encounter for change or removal of surgical wound dressing dr5 Followup: dr5 - With: Emergency Department - When: As needed - Reason: Worsening of condition Followup: dr5 - With: Private Physician - When: 1 - 2 days - Reason: Recheck today's complaints, Continuance of care, Re-evaluation by your physician Discharge Instructions: - Discharge Summary Sheet dr5 - How to Change Your Wound Dressing dr5 Forms: - Medication Reconciliation Form dr5 - Patient Portal Instructions dr5 - Leadership Thank You Letter dr5 Signatures: Lupe Miller, RN RN Pedro Cabello, SEWAGE RETICULATION DRAFTING OFFICER-C SEWAGE RETICULATION DRAFTING OFFICER-Cdr5
--- NOTE | 2024-06-27 15:56 | ER ---
Nurse's Notes [facility] Name: Lizzeth Almaarz Age: 39 yrs Sex: Female : 1985 Arrival Date: 06/27/2024 Time: 14:04 Bed 10 Private MD: Diagnosis: Encounter for change or removal of surgical wound dressing Presentation: 06/27 14:15 Chief complaint: Patient states: she is in need to have her wound repacked and dressed. hb Coronavirus screen: At this time, the client does not indicate any symptoms associated with coronavirus-19. Ebola Screen: No symptoms or risks identified at this time. Initial Sepsis Screen: Does the patient meet any 2 criteria? No. Patient's initial sepsis screen is negative. Does the patient have a suspected source of infection? No. Patient's initial sepsis screen is negative. Risk Assessment: Do you want to hurt yourself or someone else? Patient reports no desire to harm self or others. Onset of symptoms was June 27, 2024. Transition of care: patient was not received from another setting of care. 14:15 Method Of Arrival: Ambulatory hb 14:15 Acuity: SAKSHI 4 hb Triage Assessment: 14:17 General: Appears in no apparent distress. Behavior is calm, cooperative, appropriate hb for age. Pain: Complains of pain in gluteal cleft. Neuro: Level of Consciousness is awake, alert, obeys commands, Oriented to person, place, time, situation. Cardiovascular: Patient's skin is warm and dry. Respiratory: Airway is patent Respiratory effort is even, unlabored, Respiratory pattern is regular, symmetrical. Derm: Reports wound that needs redressing. 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 Flu vaccine status is unknown. - Infectious Disease History:: Denies. - Social history:: Smoking status: Patient denies any tobacco usage or history of. Screenin:17 [facility] ED Fall Risk Assessment (Adult) History of falling in the last 3 months, hb including since admission No falls in past 3 months (0 pts) Confusion or Disorientation No (0 pts) Intoxicated or Sedated No (0 pts) Impaired Gait No (0 pts) Mobility Assist Device Used No (0 pt) Altered Elimination No (0 pt) Score/Fall Risk Level 0 - 2 = Low Risk Oriented to surroundings, Maintained a safe environment, Educated pt \T\ family on fall prevention, incl call for assistance when getting out of bed, Assessed \T\ reinforced patient's understanding of fall precautions, Hourly rounding (assess needs \T\ fall precautionary measures) done, Used ambulatory aids as needed (educated on \T\ assisted with), Used gait belt as appropriate. Abuse screen: Denies threats or abuse. Nutritional screening: No deficits noted. Tuberculosis screening: No symptoms or risk factors identified. Vital Signs: 14:15 BP 116 / 76; Pulse 61; Resp 18; Temp 98.6; Pulse Ox 96% ; Weight 86.18 kg; Height 5 ft. hb 1 in. ; 14:15 Body Mass Index 35.90 (86.18 kg, 154.94 cm) hb ED Course: 14:06 Patient arrived in ED. ra3 14:09 Pedro Keane [facility]-C [facility]. dr5 14:09 Papa Nguyen MD is Attending Physician. dr5 14:16 Triage completed. hb 14:18 Arm band placed on right wrist. hb 15:06 Annalisa Pepper, RN is Primary Nurse. ap3 15:13 Patient has correct armband on for positive identification. Placed in gown. Bed in low ap3 position. Call light in reach. Side rails up X 1. Provided Education on: wound care. 15:13 Assisted provider with: wound care. ap3 15:22 Patient did not have IV access during this emergency room visit. ap3 Administered Medications: No medications were administered Medication: 14:18 VIS not applicable for this client. hb Outcome: 15:21 Condition: good ap3 15:21 Instructed on wound care, 15:56 Discharge ordered by . dr5 15:58 Discharged to home ambulatory, ap3 15:58 Patient left the ED. ap3 Signatures: Lupe Miller RN RN hb Annalisa Pepper RN RN ap3 Shira Sheppard ra3 Pedro Keane FNP-C FNP-Cdr5
[2024-06-27 21:18] VITALS: BP 116/76; TEMP 98.6; O2SAT 96
== END 2024-06-27 15:58 | disposition home or self-care (01) ==
LOC: ER 14:04
DX: Z48.01 Encounter for change or removal of surgical wound dressing (principal); Z88.2 Allergy status to sulfonamides; Z88.8 Allergy status to other drugs, medicaments and biological substances; Z91.09 Other allergy status, other than to drugs and biological substances
CPT/HCPCS: 99282

== ENCOUNTER 2024-07-13 21:32 | Emergency (ER) | payer OTHER ==
[2024-07-13] MEDS ORDERED: NA CHLORIDE 0.9% 1,000 ML ONE (23:43)
[2024-07-13] MEDS ORDERED: KETOROLAC 30 MG/ML INJ ONE (23:43)
[2024-07-14 00:45] LABS: Absolute Basophils 0.1 K/uL (0-0.5); Absolute Eosinophils 0.2 K/uL (0-0.5); Absolute Lymphocytes (CBC) 2.6 K/uL (0.7-4.9); Absolute Monocytes 0.5 K/uL (0.1-1.3); Absolute Neutrophil 4.9 K/uL (1.8-8.0); Basophils % 0.9 % (0-1.3); Eosinophils % 1.9 % (0-4.4); Hematocrit 41.8 % (36.0-45.0); Hemoglobin 14.1 g/dL (12.0-15.0); Lymphocytes % 31.4 % (15.3-44.8); MCH 30.5 pg (27.0-35.0); MCHC 33.8 g/dL (32.0-36.0); MPV 9.4 fL (7.6-11.3); Monocytes % 5.5 % (3.3-12.3); Neutrophils % 60.3 % (41.7-73.7); Nucleated Red Blood Cells % 0.1 % (0-0); Platelets 328 thou/uL (152-406); RBC Red Blood Cell Count 4.64 M/uL (3.86-4.86)
[2024-07-14 00:55] LABS: Anion Gap 8.2 mEq/L (5.0-15.0); Potassium 3.2 mEq/L (3.5-5.1)
--- NOTE | 2024-07-14 02:01 | RAD REPORT ---
CT ABDOMEN PELVIS WITH IV CONTRAST CLINICAL INDICATION: Abdominal pain COMPARISON: No prior images are available for comparison at time of interpretation. TECHNIQUE: CT images of the abdomen and pelvis obtained following administration of intravenous contr ast. Multiplanar reformats were provided. Dose-optimization techniques such as automated exposure control, iterative reconstruction, and mA and/or kV adjustment for patient size was utilized for this examination. FINDINGS: LOWER CHEST: Dependent changes at the bilateral lung bases without pleural or pericardial effusion. LIVER: Small focal hypoenhancement in segment 4B along the falciform ligament is a common benign find ing and may be related to focal fatty infiltration or transient hepatic attenuation difference. BILIARY: Status post cholecystectomy with surgical clips at gallbladder fossa. No intra- or extrahepa tic biliary ductal dilatation. PANCREAS: Unremarkable. SPLEEN: Unremarkable. ADRENALS: Unremarkable. KIDNEYS/URETERS: No nephrolithiasis or hydroureteronephrosis. No suspicious mass lesion. BOWEL/STOMACH: Postsurgical changes from previous gastric bypass. Bowel anastomosis in left upper abd omen with associated several mildly prominent proximal small bowel loops. No bowel obstruction. APPENDIX: Normal. MESENTERY/PERITONEUM: Unremarkable. RETROPERITONEUM: No adenopathy. URINARY BLADDER: Unremarkable. REPRODUCTIVE: Uterus is not visualized. There is a 2.1 x 1.4 cm cystic-appearing structure at left pe lvis, likely a benign left adnexal cyst; no follow-up imaging is recommended. VASCULAR: Unremarkable. ABDOMINAL/PELVIC WALL: Unremarkable. BONES: Unremarkable. IMPRESSION: Several mildly prominent proximal small bowel loops nearby anastomosis, likely reflecting ileus. Electronically signed by: Diana Betts MD 07/14/2024 01:55 AM [facility] Due to temporary technical issues with the PACS/Cheers reporting system, reports are being nahed d by the in-house radiologist without review as a courtesy to ensure prompt reporting the interpreting radiologist is fully responsible for the content of the report. Transcribed Date/Time: 07/14/2024 2:01 AM
--- NOTE | 2024-07-14 03:05 | EDPHYS ---
Physician Documentation [facility] Name: Lizzeth Almaraz Age: 39 yrs Sex: Female : 1985 Arrival Date: 07/13/2024 Time: 21:32 Bed 11 Private MD: ED Physician Kwadwo Khan HPI: 07/14 00:27 This 39 yrs old Female presents to ER via Ambulatory with complaints of Psbl infection kb Post Sx. 00:27 Pt is a 39 year old female who presents for increased pain and drainage to surgical kb incision near rectum. States she had surgery for a perirectal abscess on 06/23/24. States she followed up last week with Dr Bright and he was concerned about the site so he prescribed a cream. States the incision started draining blood and mucus yesterday and she has had increased pain. Denies fever. . Historical: - Allergies: 07/13 21:53 Bactrim DS; cm10 21:53 plastic tape; cm10 21:53 Sulfa (Sulfonamide Antibiotics); cm10 - PMHx: 21:53 Gastroesophageal reflux disease; Grade 3 Splenic Laceration; Hypothyroidism; cm10 - PSHx: 21:53 section; Cholecystectomy; Gastric Bypass (November); rectal abcess I\T\D; Total cm10 abdominal hysterectomy; - Immunization history:: Adult Immunizations up to date. - Infectious Disease History:: Denies. - Social history:: Smoking status: Patient denies any tobacco usage or history of. ROS: 07/14 00:25 Constitutional: As per HPI kb Exam: 00:25 Constitutional: This is a well developed, well nourished patient who is awake, alert, kb and in no acute distress. Head/Face: Normocephalic, atraumatic. ENT: Moist Mucous membranes Cardiovascular: Regular rate Respiratory: Respirations even and unlabored. No increased work of breathing. Talking in full sentences Abdomen/GI: Soft, non-tender. No distention MS/ Extremity: Pulses equal, no cyanosis. Neurovascular intact. Full, normal range of motion. Neuro: Awake and alert, GCS 15, oriented to person, place, time, and situation. 00:25 Abdomen/GI: 00:25 Abdomen/GI: Rectal exam: tenderness, that is mild, that is moderate, surgical incision without erythema, swelling, drainage. . Vital Signs: 07/13 21:50 BP 116 / 77; Pulse 63; Resp 16; Temp 97.9(O); Pulse Ox 97% on R/A; Weight 83.91 kg; cm10 Height 5 ft. 1 in. ; Pain 8/10; 21:50 Body Mass Index 34.96 (83.91 kg, 154.94 cm) cm10 21:50 Pain Scale: Adult cm10 MDM: 21:35 Medical Screening Exam initiated kb 07/14 00:26 Differential diagnosis: abscess, wound infection, cellulitis. Data reviewed: vital kb signs, nurses notes. 00:53 Transition of care: After a detail discussion of the patient's case, care is kb transferred to Kwadwo Khan MD. 03:03 Differential diagnosis: hemorrhoids, fissure, abscess, pilonidal cyst, condyloma. sp4 Consideration of Admission/Observation Escalation of care including admission/observation considered. ED course: CTABDOMEN PELVIS WITH IV CONTRAST CLINICAL INDICATION: Abdominal pain COMPARISON: No prior images are available for comparison at time of interpretation. TECHNIQUE: CT images of the abdomen and pelvis obtained following administration of intravenous contrast. Multiplanar reformats were provided. Dose-optimization techniques such as automated exposure control, iterative reconstruction, and mA and/or kV adjustment for patient size was utilized for this examination. FINDINGS: LOWER CHEST: Dependent changes at the bilateral lung bases without pleural or pericardial effusion. LIVER: Small focal hypoenhancement in segment 4B along the falciform ligament is a common benign finding and may be related to focal fatty infiltration or transient hepatic attenuation difference. BILIARY: Status post cholecystectomy with surgical clips at gallbladder fossa. No intra- or extrahepatic biliary ductal dilatation. PANCREAS: Unremarkable. SPLEEN: Unremarkable. ADRENALS: Unremarkable. KIDNEYS/URETERS: No nephrolithiasis or hydroureteronephrosis. No suspicious mass lesion. BOWEL/STOMACH: Postsurgical changes from previous gastric bypass. Bowel anastomosis in left upper abdomen with associated several mildly prominent proximal small bowel loops. No bowel obstruction. APPENDIX: Normal. MESENTERY/PERITONEUM: Unremarkable. RETROPERITONEUM: No adenopathy. URINARYBLADDER: Unremarkable. REPRODUCTIVE: Uterus is not visualized. There is a 2.1 x 1.4 cm cystic-appearing structure at left pelvis, likely a benign left adnexal cyst; no follow-up imaging is recommended. VASCULAR: Unremarkable. ABDOMINAL/PELVIC WALL: Unremarkable. BONES: Unremarkable. IMPRESSION: Several mildly prominent proximal small bowel loops nearby anastomosis, likely reflecting ileus. 07/13 23:15 Order name: CT Abd/Pelvis - IV Contrast Only kb 07/13 23:15 Order name: CBC with Diff; Complete Time: 00:52 kb 07/13 23:15 Order name: Basic Metabolic Panel; Complete Time: 01:18 kb 07/13 23:15 Order name: Test, Serum; Complete Time: 00:52 kb 07/13 23:15 Order name: IV Start; Complete Time: 00:11 kb Administered Medications: 00:00 Drug: NS 0.9% IV 1000 ml IV at 1000 ml once; to be given as a bolus over 60 minutes kb3 Route: IV; Rate: 1000 ml; Site: right antecubital; 01:00 Follow up: IV Status: Completed infusion; IV Intake: 1000ml vc1 00:00 Drug: Ketorolac IVP 15 mg IVP once Route: IVP; Site: right antecubital; kb3 00:15 Follow up: Response: No adverse reaction; Marked relief of symptoms; Pain is decreased vc1 Disposition: 00:48 Co-signature as Attending Physician, Kwadwo Khan MD I agree with the assessment sp4 and plan of care. I reviewed the patient's care provided by Advanced Practice Provider \T\ agree w/ the diagnosis \T\ care plan. I personally saw the pt \T\ performed a substantive portion of the visit, incldng all aspects of the (History/Exam/Medical Decision Making). Disposition Summary: 07/14/24 03:04 Discharge Ordered Notes: Your abscess seems to be in healing stages - no emergent signs Location: Home sp4 Problem: new sp4 Symptoms: have improved sp4 Condition: Stable sp4 Diagnosis - Acute rectal pain, Post Operative incision pain perirectal area, sp4 Followup: sp4 - With: Nicolas Bright MD - When: 7 - 10 days - Reason: Recheck today's complaints Discharge Instructions: - Discharge Summary Sheet sp4 - Anorectal Abscess sp4 Forms: - Patient Portal Instructions sp4 Prescriptions: - Tramadol 50 mg Oral tablet - take 1 tablet ORAL route every 8 hours as needed; 20 tablet; Refills: 0, sp4 Product Selection Permitted Signatures: Dispatcher [employer] Alondra Mendieta, MANAGER PACU-C MANAGER PACU-Adali Dawn, RN RN kb3 Kwadwo Khan MD MD sp4 Maddy Jay RN RN cm10 Nicole Guillory RN vc1 Corrections: (The following items were deleted from the chart) 07/13 23:16 23:16 Abdomen Pelvis W Con+CT.RAD.BRZ ordered. EDMS EDMS
--- NOTE | 2024-07-14 03:05 | ER ---
Nurse's Notes [facility] Name: Lizzeth Almaraz Age: 39 yrs Sex: Female : 1985 Arrival Date: 07/13/2024 Time: 21:32 Bed 11 Private MD: Diagnosis: Acute rectal pain, Post Operative incision pain perirectal area, Presentation: 07/13 21:50 Chief complaint: Patient states: HAD RECTAL ABSCESS DRAINED ON 06/[address] CARNEY. PT cm10 STATES THAT ON 07/06 SHE FOLLOWED UP BECAUSE THE ABSCESS WAS GETTING WORSE AND WAS GIVEN SANTYL TO PUT ON IT DAILY. PT STATES THAT INCISION SITE NOW HAS INCREASED DRAINAGE, BLEEDING, AND MORE PAIN. PT ALSO REPORTS CHILLS. Coronavirus screen: Client denies travel out of the [place] in the last 14 days. Ebola Screen: Patient denies travel to an Ebola-affected area in the 21 days before illness onset. No symptoms or risks identified at this time. Initial Sepsis Screen: Does the patient meet any 2 criteria? No. Patient's initial sepsis screen is negative. Does the patient have a suspected source of infection? No. Patient's initial sepsis screen is negative. Risk Assessment: Do you want to hurt yourself or someone else? Patient reports no desire to harm self or others. Onset of symptoms was July 13, 2024. 21:50 Method Of Arrival: Ambulatory cm10 21:50 Acuity: SAKSHI 3 cm10 Triage Assessment: 21:54 General: Appears in no apparent distress. uncomfortable, Behavior is calm, cooperative. cm10 Neuro: No deficits noted. Level of Consciousness is awake, alert, obeys commands, Oriented to person, place, time, situation, Appropriate for age. Respiratory: No deficits noted. Airway is patent Respiratory effort is even, unlabored, Respiratory pattern is regular, symmetrical. Historical: - Allergies: 21:53 Bactrim DS; cm10 21:53 plastic tape; cm10 21:53 Sulfa (Sulfonamide Antibiotics); cm10 - PMHx: 21:53 Gastroesophageal reflux disease; Grade 3 Splenic Laceration; Hypothyroidism; cm10 - PSHx: 21:53 section; Cholecystectomy; Gastric Bypass (November); rectal abcess I\T\D; Total cm10 abdominal hysterectomy; - Immunization history:: Adult Immunizations up to date. - Infectious Disease History:: Denies. - Social history:: Smoking status: Patient denies any tobacco usage or history of. Screenin/13 00:00 [facility] ED Fall Risk Assessment (Adult) History of falling in the last 3 months, vc1 including since admission No falls in past 3 months (0 pts) Confusion or Disorientation No (0 pts) Intoxicated or Sedated No (0 pts) Impaired Gait No (0 pts) Mobility Assist Device Used No (0 pt) Altered Elimination No (0 pt) Score/Fall Risk Level 0 - 2 = Low Risk Oriented to surroundings, Maintained a safe environment, Educated pt \T\ family on fall prevention, incl call for assistance when getting out of bed. Abuse screen: Denies threats or abuse. Nutritional screening: No deficits noted. Tuberculosis screening: No symptoms or risk factors identified. Assessment: 03:06 Reassessment: Patient appears in no apparent distress at this time. No changes from vc1 previously documented assessment. Patient and/or family updated on plan of care and expected duration. Pain level reassessed. Patient is alert, oriented x 3, equal unlabored respirations, skin warm/dry/pink. Vital Signs: 07/13 21:50 BP 116 / 77; Pulse 63; Resp 16; Temp 97.9(O); Pulse Ox 97% on R/A; Weight 83.91 kg; cm10 Height 5 ft. 1 in. ; Pain 8/10; 21:50 Body Mass Index 34.96 (83.91 kg, 154.94 cm) cm10 21:50 Pain Scale: Adult cm10 ED Course: 21:34 Patient arrived in ED. ra3 21:35 Alondra Gabriel FNP-C is PHCP. kb 21:35 Kwadwo Khan MD is Attending Physician. kb 21:53 Triage completed. cm10 21:54 Arm band placed on right wrist. Patient placed in waiting room. cm10 07/14 00:11 CBC with Diff Sent. vk 00:11 Basic Metabolic Panel Sent. vk 00:11 Test, Serum Sent. vk 00:11 Inserted saline lock: 22 gauge in right antecubital area, using aseptic technique. vk Blood collected. Flushed with 10 mL NS. 00:11 Initial lab(s) drawn, by me, sent to lab. vk 01:00 CT Abd/Pelvis - IV Contrast Only In Process Unspecified. EDMS 02:59 No provider procedures requiring assistance completed. Patient did not have IV access vc1 during this emergency room visit. 03:04 Nicolas Carney MD is Referral Physician. sp4 03:06 Patient has correct armband on for positive identification. Provided Education on: f/u vc1 with PCP. 03:21 Nicole Guillory, RN is Primary Nurse. vc1 Administered Medications: 00:00 Drug: NS 0.9% IV 1000 ml IV at 1000 ml once; to be given as a bolus over 60 minutes kb3 Route: IV; Rate: 1000 ml; Site: right antecubital; 01:00 Follow up: IV Status: Completed infusion; IV Intake: 1000ml vc1 00:00 Drug: Ketorolac IVP 15 mg IVP once Route: IVP; Site: right antecubital; kb3 00:15 Follow up: Response: No adverse reaction; Marked relief of symptoms; Pain is decreased vc1 Medication: 02:59 VIS not applicable for this client. vc1 Intake: 01:00 IV: 1000ml; Total: 1000ml. vc1 Outcome: 03:04 Discharge ordered by . sp4 03:06 Discharged to home ambulatory, vc1 03:06 Condition: good 03:06 Discharge instructions given to patient, Instructed on discharge instructions, follow up and referral plans. medication usage, Demonstrated understanding of instructions, follow-up care, medications, Prescriptions given X 1, 03:21 Patient left the ED. vc1 Signatures: Dispatcher [employer] EDIA Alondra Gabriel, EXPERIMENTAL ROCKET SLED MECHANIC-C EXPERIMENTAL ROCKET SLED MECHANIC-Ckb Nicole Guillory, MANN RN vc1 Adali Faye, MANN leger3 Kwadwo Khan MD MD sp4 Maddy Jay RN RN cm10 Shira Sheppard 3 Karly Colunga
[2024-07-14 03:30] VITALS: BP 116/77; TEMP 97.9; O2SAT 97
== END 2024-07-14 03:21 | disposition home or self-care (01) ==
LOC: ER 21:32
DX: G89.18 Other acute postprocedural pain (principal)
CPT/HCPCS: 85025; 80048; 36415; 84703; 74177; Q9967; J7030

== ENCOUNTER 2024-08-21 11:46 | Emergency (ER) | payer OTHER ==
--- NOTE | 2024-08-21 12:07 | ER ---
Nurse's Notes [facility] Name: Lizzeth Almaraz Age: 39 yrs Sex: Female : 1985 Arrival Date: 08/21/2024 Time: 11:46 Bed DIS1 Private MD: Diagnosis: Streptococcal pharyngitis Presentation: 08/21 11:58 Chief complaint: Patient states: was exposed to strep, has sore throat since yesterday. iw Coronavirus screen: Client presents with at least one sign or symptom that may indicate coronavirus-19. Ebola Screen: No symptoms or risks identified at this time. 11:58 Method Of Arrival: Ambulatory iw 11:58 Acuity: SAKSHI 4 iw 12:26 Initial Sepsis Screen: Does the patient meet any 2 criteria? No. Patient's initial me1 sepsis screen is negative. Does the patient have a suspected source of infection? No. Patient's initial sepsis screen is negative. Risk Assessment: Do you want to hurt yourself or someone else? Patient reports no desire to harm self or others. Onset of symptoms was August 20, 2024. 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 - Infectious Disease History:: Denies. - Social history:: Smoking status: . Screenin:12 [facility] ED Fall Risk Assessment (Adult) History of falling in the last 3 months, me1 including since admission No falls in past 3 months (0 pts) Confusion or Disorientation No (0 pts) Intoxicated or Sedated No (0 pts) Impaired Gait No (0 pts) Mobility Assist Device Used No (0 pt) Altered Elimination No (0 pt) Score/Fall Risk Level 0 - 2 = Low Risk Maintained a safe environment, Provided non-skid footwear, Hourly rounding (assess needs \T\ fall precautionary measures) done. Abuse screen: Denies threats or abuse. Nutritional screening: No deficits noted. Tuberculosis screening: No symptoms or risk factors identified. Assessment: 12:12 General: Appears comfortable, well groomed, well developed, well nourished, Behavior is me1 calm, cooperative, appropriate for age. Pain: Complains of pain in throat Pain does not radiate. Pain currently is 4 out of 10 on a pain scale. Quality of pain is described as tender, Pain began suddenly, Is continuous. Neuro: Level of Consciousness is awake, alert, obeys commands, Oriented to person, place, time, situation, Appropriate for age. Cardiovascular: Patient's skin is warm and dry. Respiratory: Airway is patent Respiratory effort is even, unlabored, Respiratory pattern is regular, symmetrical, Breath sounds are clear bilaterally. GI: No signs and/or symptoms were reported involving the gastrointestinal system. : No signs and/or symptoms were reported regarding the genitourinary system. EENT: Throat is reddened Reports pain when swallowing. Derm: Skin is intact, is healthy with good turgor, Skin is pink, warm \T\ dry. Musculoskeletal: No signs and/or symptoms reported regarding the musculoskeletal system. Vital Signs: 11:58 Weight 81.19 kg; Height 5 ft. 1 in. ; iw 12:12 BP 104 / 68; Pulse 57; Resp 16; Temp 97.6; Pulse Ox 98% ; me1 11:58 Body Mass Index 33.82 (81.19 kg, 154.94 cm) iw ED Course: 11:49 Patient arrived in ED. ra3 11:49 [facility] sb4 11:49 Aquilino Corona MD is Attending Physician. sb4 11:55 Angela Abdalla, MANN is Primary Nurse. me1 12:00 Triage completed. iw 12:02 Arm band placed on. iw 12:12 Patient has correct armband on for positive identification. Bed in low position. Call me1 light in reach. Side rails up X2. Provided Education on: POC. Verbalized understanding.. 12:12 No provider procedures requiring assistance completed. Patient did not have IV access me1 during this emergency room visit. Administered Medications: No medications were administered Medication: 12:12 VIS not applicable for this client. me1 Outcome: 12:07 Discharge ordered by . sb4 12:26 Discharged to home ambulatory, me1 12:26 Condition: stable 12:26 Discharge instructions given to patient, Instructed on discharge instructions, follow up and referral plans. medication usage, Demonstrated understanding of instructions, follow-up care, medications, Prescriptions given X 1, 12:27 Patient left the ED. me1 Signatures: Katty Dodge, RN RN iw Dia Chou, PAAleeC PAAleeC sb4 Angela Abdalla RN RN me1 Shira Sheppard ra3
--- NOTE | 2024-08-21 12:08 | EDPHYS ---
Physician Documentation [facility] Name: Lizzeth Almaraz Age: 39 yrs Sex: Female : 1985 Arrival Date: 08/21/2024 Time: 11:46 Bed DIS1 Private MD: ED Physician Aquilino Corona HPI: 08/21 12:23 This 39 yrs old Female presents to ER via Ambulatory with complaints of Sore Throat. sb4 12:23 sore throat x 24 hours. several family members have strep throat. denies any fever. no sb4 cough, nausea, vomiting, abd pain. 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 - Infectious Disease History:: Denies. - Social history:: Smoking status: . ROS: 12:23 Constitutional: Negative for fever, chills, and weight loss, sb4 12:23 ENT: Positive for sore throat, 12:23 All other systems are negative, Exam: 12:23 Constitutional: This is a well developed, well nourished patient who is awake, alert, sb4 and in no acute distress. Head/Face: Normocephalic, atraumatic. Eyes: Extra-ocular motions intact. Periorbital areas with no swelling, redness, or edema. Cardiovascular: Regular rate and rhythm with a normal S1 and S2. Respiratory: No increased work of breathing, no retractions or nasal flaring. Abdomen/GI: Soft, non-tender, no distension. Skin: Warm, dry with normal turgor. Normal color with no rashes, no lesions, and no evidence of cellulitis. 12:23 ENT: Posterior pharynx: Airway: normal, no evidence of obstruction, Tonsils: bilaterally enlarged, with erythema, Vital Signs: 11:58 Weight 81.19 kg; Height 5 ft. 1 in. ; iw 12:12 BP 104 / 68; Pulse 57; Resp 16; Temp 97.6; Pulse Ox 98% ; me1 11:58 Body Mass Index 33.82 (81.19 kg, 154.94 cm) iw MDM: 11:57 Medical Screening Exam initiated cresencio 12:24 Data reviewed: vital signs, nurses notes, and as a result, I will discharge patient. sb4 Test considered but Not performed: Labs: strep swab, not indicated, clinical diagnosis. Counseling: I had a detailed discussion with the patient and/or guardian regarding the historical points, exam findings, and any diagnostic results supporting the discharge/admit diagnosis, the need for outpatient follow up, for definitive care, to return to the emergency department if symptoms worsen or persist or if there are any questions or concerns that arise at home. Administered Medications: No medications were administered Disposition Summary: 08/21/24 12:07 Discharge Ordered Notes: Location: Home sb4 Problem: new sb4 Symptoms: are unchanged sb4 Condition: Stable sb4 Diagnosis - Streptococcal pharyngitis sb4 Followup: sb4 - With: Emergency Department - When: As needed - Reason: Trouble breathing, Worsening of condition Discharge Instructions: - Discharge Summary Sheet sb4 - Strep Throat, Adult, [id number] sb4 Forms: - Antibiotic Education sb4 - Patient Portal Instructions sb4 - Leadership Thank You Letter sb4 Prescriptions: - Amoxicillin 875 mg Oral Tablet - take 1 tablet ORAL route every 12 hours for 10 days; 20 tablet; Refills: 0, sb4 Product Selection Permitted Addendum: 08/26/2024 12:52 Co-signature as Attending Physician, Aquilino Corona MD I agree with the assessment and c joy plan of care. Signatures: Aquilino Corona MD MD cha Williams, Irene, RN RN Dia Austin PA-C PAMaxwell sb4
[2024-08-21 12:47] VITALS: BP 104/68; TEMP 97.6; O2SAT 98
== END 2024-08-21 12:27 | disposition home or self-care (01) ==
LOC: ER 11:46
DX: J02.0 Streptococcal pharyngitis (principal); E03.9 Hypothyroidism, unspecified; K21.9 Gastro-esophageal reflux disease without esophagitis; Z88.1 Allergy status to other antibiotic agents; Z88.2 Allergy status to sulfonamides
CPT/HCPCS: 99283

== ENCOUNTER 2024-09-25 19:03 | Emergency (ER) | payer OTHER ==
--- NOTE | 2024-09-25 20:28 | EDPHYS ---
Physician Documentation [facility] Name: Lizzeth Almaraz Age: 39 yrs Sex: Female : 1985 Arrival Date: 09/25/2024 Time: 19:03 Bed IW1 Private MD: ED Physician Aquilino Corona HPI: 09/25 19:50 This 39 yrs old Female presents to ER via Ambulatory with complaints of Sore Throat. cp 19:50 The patient presents with sore throat. The patient describes throat pain as pain with cp swallowing. 19:50 Onset: The symptoms/episode began/occurred this morning. cp 19:50 Severity of symptoms: in the emergency department the symptoms are unchanged, despite cp home interventions. Associated signs and symptoms: Pertinent negatives cough, earache, fever, flu-like symptoms, headache. Mother reports 2 daughters diagnosed and currently being treated for strep throat. 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 - Infectious Disease History:: Denies. - Social history:: Smoking status: Patient denies any tobacco usage or history of. ROS: 19:55 Constitutional: Negative for body aches, chills, fever, poor PO intake, cp 19:55 Eyes: Negative for injury, pain, redness, and discharge, cp 19:55 ENT: Positive for sore throat, Negative for drainage from ear(s), ear pain, difficulty swallowing, difficulty handling secretions, 19:55 Respiratory: Negative for cough, shortness of breath, wheezing, 19:55 Abdomen/GI: Negative for vomiting, diarrhea, constipation, 19:55 Skin: Negative for rash, 19:55 Neuro: Negative for headache, 19:55 All other systems are negative, Exam: 20:00 Constitutional: The patient appears in no acute distress, alert, awake, non-toxic, well cp developed, well nourished, 20:00 Head/Face: Normocephalic, atraumatic. cp 20:00 Eyes: Periorbital structures: appear normal, Conjunctiva: normal, no exudate, no injection, Sclera: no appreciated abnormality, Lids and lashes: appear normal, bilaterally, 20:00 ENT: External ear(s): are unremarkable, Ear canal(s): are normal, clear, TM's: dullness, bilaterally, Nose: is normal, Mouth: Lips: moist, Oral mucosa: moist, Posterior pharynx: Airway: no evidence of obstruction, patent, Tonsils: surgically absent, Uvula: midline, erythema, that is mild, exudate, is not appreciated, 20:00 Neck: ROM/movement: Meningeal signs: are not present, nuchal rigidity, is not appreciated, 20:00 Chest/axilla: Inspection: normal, 20:00 Cardiovascular: Rate: normal, 20:00 Respiratory: the patient does not display signs of respiratory distress, Respirations: normal, no use of accessory muscles, no retractions, labored breathing, is not present, Breath sounds: are clear throughout, no decreased breath sounds, no stridor, no wheezing, 20:00 Abdomen/GI: Inspection: abdomen appears normal, Vital Signs: 19:29 BP 115 / 74; Pulse 76; Resp 16; Temp 98.1; Pulse Ox 95% ; Weight 81.65 kg; Height 5 ft. me1 1 in. ; Pain 2/10; 20:40 BP 112 / 76; Pulse 79; Resp 17 S; Temp 97.8(O); Pulse Ox 97% on R/A; lg3 19:29 Body Mass Index 34.01 (81.65 kg, 154.94 cm) me1 19:29 Pain Scale: Adult me1 MDM: 19:45 Medical Screening Exam initiated cresencio 20:26 Data reviewed: vital signs, nurses notes, lab test result(s), and as a result, I will cp discharge patient. 20:26 Differential diagnosis: apthous stomatitis, group A strep tonsillitis, influenza, cp peritonsillar abscess pharyngitis, retropharyngeal abcess. I considered the following discharge prescriptions or medication management in the emergency department Medications were administered in the Emergency Department. See MAR. Counseling: I had a detailed discussion with the patient and/or guardian regarding the historical points, exam findings, and any diagnostic results supporting the discharge/admit diagnosis, lab results, to return to the emergency department if symptoms worsen or persist or if there are any questions or concerns that arise at home. 09/25 19:38 Order name: Strep cp Administered Medications: 20:40 Drug: Amoxicillin-Clavulanate PO 875 mg PO once Route: PO; lg3 20:40 Follow up: Response: No adverse reaction; Medication administered at discharge. lg3 Disposition Summary: 09/25/24 20:27 Discharge Ordered Notes: Location: Home cp Problem: new cp Symptoms: have improved cp Condition: Stable cp Diagnosis - Streptococcal pharyngitis cp Followup: cp - With: Private Physician - When: 2 - 3 days - Reason: Worsening of condition Discharge Instructions: - Discharge Summary Sheet cp - Sore Throat cp - Strep Throat, Pediatric cp Forms: - Medication Reconciliation Form cp - Antibiotic Education cp - Prescription Opioid Use cp - Patient Portal Instructions cp - Leadership Thank You Letter cp Prescriptions: - Amoxicillin 875 mg Oral Tablet - take 1 tablet ORAL route every 12 hours for 10 days; 20 tablet; Refills: 0, cp Product Selection Permitted Addendum: 09/28/2024 14:16 Co-signature as Attending Physician, Aquilino Corona MD I agree with the assessment and c joy plan of care. Signatures: Dispatcher [employer] Aquilino Miller MD MD cha Page, Corey, PA Jennifer Low cp RN RN lg3 Angela Abdalla RN RN me1
--- NOTE | 2024-09-25 20:28 | ER ---
Nurse's Notes [facility] Name: Lizzeth Almaraz Age: 39 yrs Sex: Female : 1985 Arrival Date: 09/25/2024 Time: 19:03 Bed IW1 Private MD: Diagnosis: Streptococcal pharyngitis Presentation: 09/25 19:29 Chief complaint: Patient states: sore throat that started this morning. 2 daughters me1 have strep right now. Coronavirus screen: Vaccine status: Patient reports being unvaccinated. Ebola Screen: No symptoms or risks identified at this time. Initial Sepsis Screen: Does the patient meet any 2 criteria? No. Patient's initial sepsis screen is negative. Does the patient have a suspected source of infection?. Risk Assessment: Do you want to hurt yourself or someone else? Patient reports no desire to harm self or others. Onset of symptoms was September 25, 2024 at 08:00. 19:29 Method Of Arrival: [place] [facility] [place] Acuity: SAKSHI 5 me1 Triage Assessment: 19:30 General: Appears in no apparent distress. well groomed, well developed, well nourished, me1 Behavior is calm, cooperative, appropriate for age, Reports sore throat that started this morning. Daughters have strep at this time. Pain: Complains of pain in throat Pain does not radiate. Pain currently is 2 out of 10 on a pain scale. Quality of pain is described as tender, Pain began this morning Is continuous. EENT: Reports pain when swallowing. Neuro: Level of Consciousness is awake, alert, obeys commands, Oriented to person, place, time, situation, Appropriate for age. Cardiovascular: Patient's skin is warm and dry. Respiratory: Airway is patent Respiratory effort is even, unlabored, Respiratory pattern is regular, symmetrical. GI: No signs and/or symptoms were reported involving the gastrointestinal system. : No signs and/or symptoms were reported regarding the genitourinary system. Derm: Skin is intact, is healthy with good turgor, Skin is pink, warm \T\ dry. Musculoskeletal: No signs and/or symptoms reported regarding the musculoskeletal system. 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 - Infectious Disease History:: Denies. - Social history:: Smoking status: Patient denies any tobacco usage or history of. Screenin:37 [facility] ED Fall Risk Assessment (Adult) History of falling in the last 3 months, me1 including since admission No falls in past 3 months (0 pts) Confusion or Disorientation No (0 pts) Intoxicated or Sedated No (0 pts) Impaired Gait No (0 pts) Mobility Assist Device Used No (0 pt) Altered Elimination No (0 pt) Score/Fall Risk Level 0 - 2 = Low Risk Maintained a safe environment, Provided non-skid footwear, Hourly rounding (assess needs \T\ fall precautionary measures) done. Abuse screen: Denies threats or abuse. Nutritional screening: No deficits noted. Tuberculosis screening: No symptoms or risk factors identified. Assessment: 19:37 General: See triage assessment. Respiratory: Airway is patent Respiratory effort is me1 even, unlabored, Respiratory pattern is regular, symmetrical, Breath sounds are clear bilaterally. 20:40 Reassessment: Patient appears in no apparent distress at this time. No changes from lg3 previously documented assessment. Patient and/or family updated on plan of care and expected duration. Pain level reassessed. Patient is alert, oriented x 3, equal unlabored respirations, skin warm/dry/pink. Vital Signs: 19:29 BP 115 / 74; Pulse 76; Resp 16; Temp 98.1; Pulse Ox 95% ; Weight 81.65 kg; Height 5 ft. me1 1 in. ; Pain 2/10; 20:40 BP 112 / 76; Pulse 79; Resp 17 S; Temp 97.8(O); Pulse Ox 97% on R/A; lg3 19:29 Body Mass Index 34.01 (81.65 kg, 154.94 cm) me1 19:29 Pain Scale: Adult sd1 ED Course: 19:04 Patient arrived in ED. im 19:22 Aquilino Mccracken PA is PHCP. cp 19:22 Aquilino Corona MD is Attending Physician. cp 19:30 Triage completed. me1 19:30 Arm band placed on Patient placed in waiting room. me1 19:37 Patient has correct armband on for positive identification. Provided Education on: POC. me1 Verbalized understanding.. 19:37 No provider procedures requiring assistance completed. Patient did not have IV access me1 during this emergency room visit. 19:41 Strep Sent. me1 19:41 Strep swab sent to lab. me1 20:20 Christine Sanches, RN is Primary Nurse. br2 Administered Medications: 20:40 Drug: Amoxicillin-Clavulanate PO 875 mg PO once Route: PO; lg3 20:40 Follow up: Response: No adverse reaction; Medication administered at discharge. lg3 Medication: 19:37 VIS not applicable for this client. me1 Outcome: 20:27 Discharge ordered by . cp 20:40 Discharged to home ambulatory, lg3 20:40 Condition: stable 20:40 Discharge instructions given to patient, Instructed on discharge instructions, follow up and referral plans. medication usage, Demonstrated understanding of instructions, follow-up care, medications, Prescriptions given X 1, 20:41 Patient left the ED. lg3 Signatures: Aquilino Mccracken PA PA cp Able, Lacie, RN RN lg3 Bela Weller Michelle, RN RN me1 Christine Sanches RN RN br2
[2024-09-25] MEDS ORDERED: AMOX/K CLAV 875 MG TAB ONE (20:33)
[2024-09-25 23:30] VITALS: BP 112/76; TEMP 97.8; O2SAT 97
== END 2024-09-25 20:41 | disposition home or self-care (01) ==
LOC: ER 19:03
DX: J02.0 Streptococcal pharyngitis (principal)
CPT/HCPCS: 87081; 99284

== ENCOUNTER 2024-10-09 00:51 | Emergency (ER) | payer OTHER ==
[2024-10-09] MEDS ORDERED: ONDANSETRON 4 MG/2 ML VIAL ONE (02:20)
[2024-10-09] MEDS ORDERED: MAGNES/ALUMIN/SIMET 30ML UCUP ONE (02:20)
[2024-10-09] MEDS ORDERED: MORPHINE 4 MG/ML SYR ONE ×2 (02:20→06:37)
[2024-10-09] MEDS ORDERED: FAMOTIDINE 20 MG/2 ML VIAL IV ONE (02:21)
[2024-10-09] MEDS ORDERED: LIDOCAINE VISCOUS 2% 10ML ORAL SOLN ONE (02:21)
[2024-10-09] MEDS ORDERED: NA CHLORIDE 0.9% 1,000 ML ONE (02:21)
[2024-10-09 02:44] LABS: Albumin 3.2 g/dL (3.4-5.0); Albumin/Globulin Ratio 0.8 (1.1-1.8); Anion Gap 8.5 mEq/L (5.0-15.0); Bilirubin Total 0.9 mg/dL (0.2-1.0); Potassium 3.5 mEq/L (3.5-5.1); Protein, Total 7.2 g/dL (6.4-8.2)
[2024-10-09 03:04] LABS: Absolute Basophils 0.1 K/uL (0-0.5); Absolute Eosinophils 0.2 K/uL (0-0.5); Absolute Lymphocytes (CBC) 2.4 K/uL (0.7-4.9); Absolute Monocytes 0.5 K/uL (0.1-1.3); Absolute Neutrophil 5.8 K/uL (1.8-8.0); Basophils % 0.6 % (0-1.3); Eosinophils % 2.4 % (0-4.4); Hematocrit 38.3 % (36.0-45.0); Hemoglobin 13.2 g/dL (12.0-15.0); Lymphocytes % 26.4 % (15.3-44.8); MCH 30.2 pg (27.0-35.0); MCHC 34.5 g/dL (32.0-36.0); MCV 87.3 fL (80-100); MPV 8.9 fL (7.6-11.3); Neutrophils % 64.6 % (41.7-73.7); Platelets 294 thou/uL (152-406); RBC Red Blood Cell Count 4.39 M/uL (3.86-4.86); Red Cell Distribution Width 13.2 % (12.1-15.2)
[2024-10-09 03:08] LABS: Sqamous Epithelial <5 /HPF (None Seen); Urine Bacteria None Seen /HPF (<20); Urine Bilirubin NEGATIVE (Negative); Urine Blood Negative (Negative); Urine Clarity Turbid (Clear); Urine Color Light-Yellow (Yellow); Urine Culture Reflex Order NOT NEEDED; Urine Glucose NEGATIVE (Negative); Urine Ketones 1+ (Negative); Urine Microscopic Reflex YN ORDER UMIC; Urine Mucus Slight /HPF (None Seen); Urine Nitrite NEGATIVE (Negative); Urine Protein NEGATIVE (Negative); Urine RBC <5 /HPF (None Seen); Urine Urobilinogen Normal (Normal); Urine WBC <5 /HPF (<5); Urine Yeast (Budding) Trace /HPF (None Seen); Urine pH 6.5 (5.0-7.0)
--- NOTE | 2024-10-09 06:18 | RAD REPORT ---
EXAM: CT Abdomen and Pelvis With Intravenous Contrast CLINICAL HISTORY: The patient is 39 years old and is Female; Abdomen pain. TECHNIQUE: Axial computed tomography images of the abdomen and pelvis with intravenous contrast. Sagittal and coronal reformatted images were created and reviewed. This CT exam was performed using one or more of the following dose reduction techniques: automated exposure control, adjustmen t of the mA and/or kV according to patient size, and/or use of iterative reconstruction technique. COMPARISON: No relevant prior studies available. FINDINGS: Lung bases: Unremarkable. No mass. No consolidation. ABDOMEN: Liver: Focal fatty infiltration adjacent to the falciform ligament. Gallbladder and bile ducts: Cholecystectomy without biliary dilatation. Pancreas: No findings to suggest acute pancreatitis. No mass visualized. No ductal dilation. Spleen: No splenomegaly. Small splenules. Adrenals: Unremarkable. No mass. Kidneys and ureters: Punctate left nephrolithiasis. No solid mass or evidence of pyelonephritis. No hydronephrosis. Stomach and bowel: Prior gastric bypass. No bowel dilatation or obstruction. No bowel wall thickening. PELVIS: Appendix: The visualized appendix is normal. No pericecal inflammation to suggest acute appendici tis. Bladder: Unremarkable. No mass. Reproductive: Hysterectomy. No adnexal mass. ABDOMEN and PELVIS: Intraperitoneal space: Unremarkable. No free air. No significant fluid collection. Bones/joints: See above. Soft tissues: Unremarkable. Vasculature: Unremarkable. No abdominal aortic aneurysm. Lymph nodes: No pathologically enlarged lymph nodes. IMPRESSION: 1. No acute obstructive or inflammatory process identified. Normal appendix. 2. Prior gastric bypass. Additional postoperative changes as above. Electronically signed by: Dayana Mehta MD 10/09/2024 05:59 AM [facility] V2 Due to temporary technical issues with the PACS/GeneExcel reporting system, reports are being nahed d by the in-house radiologist without review as a courtesy to ensure prompt reporting the interpreting radiologist is fully responsible for the content of the report. Transcribed Date/Time: 10/09/2024 6:18 AM
[2024-10-09] MEDS ORDERED: PANTOPRAZOLE 40 MG INJ ONE (06:37)
--- NOTE | 2024-10-09 06:43 | ER ---
Nurse's Notes [facility] Name: Lizzeth Almaraz Age: 39 yrs Sex: Female : 1985 Arrival Date: 10/09/2024 Time: 00:51 Bed 14 Private MD: Diagnosis: Abdominal pain, unspecified;Rectal bleeding Presentation: 10/09 02:06 Chief complaint: Patient states: ABDOMINAL PAIN THAT STARTED AT 9 PM WHILE SHE WAS dd2 WATCHING TV. PT REPORTS NAUSEA AND BLOODY STOOLS. Coronavirus screen: At this time, the client does not indicate any symptoms associated with coronavirus-19. Ebola Screen: No symptoms or risks identified at this time. Initial Sepsis Screen: Does the patient meet any 2 criteria? No. Patient's initial sepsis screen is negative. Does the patient have a suspected source of infection? No. Patient's initial sepsis screen is negative. Risk Assessment: Do you want to hurt yourself or someone else? Patient reports no desire to harm self or others. Onset of symptoms was October 08, 2024. 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 - Infectious Disease History:: Denies. - Social history:: Smoking status: Patient denies any tobacco usage or history of. - Family history:: not pertinent. Screenin:10 [facility] ED Fall Risk Assessment (Adult) History of falling in the last 3 months, dd2 including since admission No falls in past 3 months (0 pts) Confusion or Disorientation No (0 pts) Intoxicated or Sedated No (0 pts) Impaired Gait No (0 pts) Mobility Assist Device Used No (0 pt) Altered Elimination No (0 pt) Score/Fall Risk Level 0 - 2 = Low Risk Oriented to surroundings, Maintained a safe environment, Educated pt \T\ family on fall prevention, incl call for assistance when getting out of bed, Assessed \T\ reinforced patient's understanding of fall precautions, Hourly rounding (assess needs \T\ fall precautionary measures) done. Abuse screen: Denies threats or abuse. Nutritional screening: No deficits noted. Tuberculosis screening: No symptoms or risk factors identified. Assessment: 02:10 General: Appears in no apparent distress. uncomfortable, Behavior is cooperative, dd2 appropriate for age, crying. Pain: Complains of pain in umbilical area Pain does not radiate. Pain currently is 9 out of 10 on a pain scale. Quality of pain is described as crampy. Neuro: Win Agitation-Sedation Scale (RASS): 0 - Alert and Calm Level of Consciousness is awake, alert, obeys commands, Oriented to person, place, time, situation, Appropriate for age. Cardiovascular: No deficits noted. Patient's skin is warm and dry. Respiratory: No deficits noted. Airway is patent Respiratory effort is even, unlabored, Respiratory pattern is regular, symmetrical, Breath sounds are clear bilaterally. GI: Abdomen is non-distended, obese, Bowel sounds present X 4 quads. Abd is soft X 4 quads Abdomen is tender to palpation in umbilical area Reports diarrhea, bloody stool, nausea, PAIN TO UMBILICAL REGION. : No deficits noted. No signs and/or symptoms were reported regarding the genitourinary system. EENT: No deficits noted. No signs and/or symptoms were reported regarding the EENT system. Derm: No deficits noted. No signs and/or symptoms reported regarding the dermatologic system. Musculoskeletal: Circulation, motion, and sensation intact. Range of motion: intact in all extremities. 02:49 Reassessment: Patient states feeling better. Patient states symptoms have improved. dd2 REPORTS PAIN 2/10. Vital Signs: 02:06 BP 111 / 81; Pulse 72; Resp 16; Temp 98.2; Pulse Ox 98% on R/A; Weight 81.65 kg; Pain dd2 10/10; 05:00 BP 101 / 79; Pulse 78; Resp 16; Pulse Ox 97% on R/A; dd2 06:59 BP 108 / 75; Pulse 76; Resp 16; Pulse Ox 100% on R/A; dd2 02:06 Pain Scale: Adult dd2 Malcolm Coma Score: 02:10 Eye Response: spontaneous(4). Motor Response: obeys commands(6). Verbal Response: dd2 oriented(5). Total: 15. ED Course: 01:13 Patient arrived in ED. gm2 01:21 Uriel Banda MD is Attending Physician. rt 02:05 VY BUSTOS, MANN is Primary Nurse. dd2 02:08 Triage completed. dd2 02:08 Arm band placed on right wrist. Patient placed in an exam room, on a stretcher, on dd2 pulse oximetry. 02:10 Patient has correct armband on for positive identification. Placed in gown. Bed in low dd2 position. Call light in reach. Side rails up X 1. Client placed on continuous cardiac and pulse oximetry monitoring. NIBP monitoring applied. Door closed. Noise minimized. Warm blanket given. Pillow given. Verbal reassurance given. 02:10 No provider procedures requiring assistance completed. Patient maintains SpO2 dd2 saturation greater than 95% on room air. 02:17 CBC with Diff Sent. dd2 02:17 CMP Sent. dd2 02:17 Lipase Sent. dd2 02:22 Initial lab(s) drawn, by pr, sent to lab. Urine collected: clean catch specimen, dd2 cloudy. Inserted saline lock: 20 gauge in right antecubital area, using aseptic technique. Blood collected. Flushed with 10 mL NS. 03:21 CT Abd/Pelvis - IV Contrast Only In Process Unspecified. EDMS 06:59 Provided Education on: D/C EDUCATION. dd2 06:59 IV discontinued, intact, bleeding controlled, No redness/swelling at site. Pressure dd2 dressing applied. Administered Medications: 02:42 Drug: GI Cocktail without - (Maalox PO 30 ml, Lidocaine Mucous Membrane 2 % 15 dd2 ml) PO once Route: PO; 03:12 Follow up: Response: No adverse reaction dd2 02:43 Drug: Famotidine IVP 20 mg IVP once; dilute with 10 mL 0.9% NaCl; give over 2 minutes dd2 Route: IVP; Site: right antecubital; 02:58 Follow up: Response: No adverse reaction dd2 02:43 Drug: Ondansetron IVP 4 mg IVP once; over 2 minutes Route: IVP; Site: right antecubital;dd2 02:58 Follow up: Response: No adverse reaction dd2 02:43 Drug: morphine IVP or IV 4 mg IVP once over 4 mins Route: IVP; Infused Over: 4 mins; dd2 Site: right antecubital; 02:58 Follow up: Response: No adverse reaction dd2 02:43 Drug: NS 0.9% IV 1000 ml IV at 1 bolus Per protocol; to be given as a bolus over 60 dd2 minutes Route: IV; Rate: 1 bolus; Site: right antecubital; 02:58 Follow up: Response: No adverse reaction dd2 03:43 Follow up: Response: No adverse reaction; IV Status: Completed infusion; IV Intake: dd2 1000ml 06:43 Drug: morphine IVP or IV 4 mg IVP once over 4 mins Route: IVP; Infused Over: 4 mins; dd2 Site: right antecubital; 07:00 Follow up: Response: No adverse reaction dd2 06:43 Drug: Pantoprazole IVP 40 mg IVP once Route: IVP; Site: right antecubital; dd2 07:00 Follow up: Response: No adverse reaction dd2 Medication: 02:10 VIS not applicable for this client. dd2 Intake: 03:43 IV: 1000ml; Total: 1000ml. dd2 Outcome: 06:42 Discharge ordered by . rt 06:59 Discharged to home ambulatory, dd2 06:59 Condition: stable 06:59 Discharge instructions given to patient, Instructed on discharge instructions, follow up and referral plans. medication usage, Demonstrated understanding of instructions, follow-up care, medications, Prescriptions given X 4, 07:03 Patient left the ED. dd2 Signatures: Dispatcher [employer] [facility] Uriel Banda MD MD rt aKtie Hawth[place] 2 VY BUSTOS RN RN dd2
--- NOTE | 2024-10-09 06:43 | EDPHYS ---
Physician Documentation [facility] Name: Lizzeth Almaraz Age: 39 yrs Sex: Female : 1985 Arrival Date: 10/09/2024 Time: 00:51 Bed 14 Private MD: ED Physician Uriel Banda HPI: 10/09 05:42 This 39 yrs old Female presents to ER via Ambulatory with complaints of Abdominal Pain, rt Nausea. 05:42 Patient presents to the ED with a generalized abdominal pain starting at about 9. The rt patient reports bloody stools which is chronic for her. Reports nausea, vomiting. States that she is worried that she has colitis. She denies other acute complaints at this time, symptoms are moderate in severity, no other aggravating alleviating factors.. 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 - Infectious Disease History:: Denies. - Social history:: Smoking status: Patient denies any tobacco usage or history of. - Family history:: not pertinent. ROS: 05:42 Constitutional: Negative for fever, chills, and weight loss, Cardiovascular: Negative rt for chest pain, palpitations, and edema, Respiratory: Negative for shortness of breath, cough, wheezing, and pleuritic chest pain, MS/Extremity: Negative for injury and deformity, Skin: Negative for injury, rash, and discoloration, Neuro: Negative for headache, weakness, numbness, tingling, and seizure, 05:42 Abdomen/GI: Positive for abdominal pain, nausea, Exam: 05:42 Constitutional: This is a well developed, well nourished patient who is awake, alert, rt and in no acute distress. Chest/axilla: Normal chest wall appearance and motion. Nontender with no deformity. No lesions are appreciated. Cardiovascular: Regular rate and rhythm with a normal S1 and S2. No gallops, murmurs, or rubs. Normal PMI, no JVD. No pulse deficits. Respiratory: Lungs have equal breath sounds bilaterally, clear to auscultation and percussion. No rales, rhonchi or wheezes noted. No increased work of breathing, no retractions or nasal flaring. Skin: Warm, dry with normal turgor. Normal color with no rashes, no lesions, and no evidence of cellulitis. MS/ Extremity: Pulses equal, no cyanosis. Neurovascular intact. Full, normal range of motion. Neuro: Awake and alert, GCS 15, oriented to person, place, time, and situation. Cranial nerves II-XII grossly intact. Motor strength 5/5 in all extremities. Sensory grossly intact. Cerebellar exam normal. Normal gait. 05:42 Abdomen/GI: Mild tenderness diffusely without rebound, guarding, distention, Vital Signs: 02:06 BP 111 / 81; Pulse 72; Resp 16; Temp 98.2; Pulse Ox 98% on R/A; Weight 81.65 kg; Pain dd2 10/10; 05:00 BP 101 / 79; Pulse 78; Resp 16; Pulse Ox 97% on R/A; dd2 06:59 BP 108 / 75; Pulse 76; Resp 16; Pulse Ox 100% on R/A; dd2 02:06 Pain Scale: Adult dd2 Malcolm Coma Score: 02:10 Eye Response: spontaneous(4). Motor Response: obeys commands(6). Verbal Response: dd2 oriented(5). Total: 15. MDM: 01:52 Medical Screening Exam initiated rt 07:19 Differential diagnosis: Gastritis, ulcer, GI bleed, nonspecific abdominal pain, rt colitis. Data reviewed: vital signs, nurses notes, lab test result(s), radiologic studies. Consideration of Admission/Observation Escalation of care including admission/observation considered. Patient had an upper endoscopy 2 days ago, subsequently discharged, does have outpatient follow-up arranged. Dynamically stable, H\T\H are stable. She reports rectal bleeding is chronic. I did offer to transfer the patient for GI evaluation, she states that she wishes to follow-up with her hostess cashier as an outpatient. Return precautions were discussed.. I considered the following discharge prescriptions or medication management in the emergency department Medications were administered in the Emergency Department. See MAR. Independent interpretation of the following test(s) in the Emergency Department CT Scan: My interpretation is No bowel obstruction syndrome interpretation of CT scan images. Care significantly affected by the following chronic conditions: GERD. Counseling: I had a detailed discussion with the patient and/or guardian regarding the historical points, exam findings, and any diagnostic results supporting the discharge/admit diagnosis, lab results, radiology results, the need for outpatient follow up, to return to the emergency department if symptoms worsen or persist or if there are any questions or concerns that arise at home. Response to treatment: the patient's symptoms have mildly improved after treatment. 10/09 02:03 Order name: CBC with Diff; Complete Time: 03:10 rt 10/09 02:03 Order name: CMP; Complete Time: 03:10 rt 10/09 02:03 Order name: Lipase; Complete Time: 03:10 rt 02 02:03 Order name: Urinalysis w/ reflexes; Complete Time: 03:10 rt 10/09 02:03 Order name: CT Abd/Pelvis - IV Contrast Only rt 10/09 02:03 Order name: IV Saline Lock; Complete Time: 02:17 rt 02 02:03 Order name: Labs collected and sent; Complete Time: 02:17 rt Administered Medications: 02:42 Drug: GI Cocktail without - (Maalox PO 30 ml, Lidocaine Mucous Membrane 2 % 15 dd2 ml) PO once Route: PO; 03:12 Follow up: Response: No adverse reaction dd2 02:43 Drug: Famotidine IVP 20 mg IVP once; dilute with 10 mL 0.9% NaCl; give over 2 minutes dd2 Route: IVP; Site: right antecubital; 02:58 Follow up: Response: No adverse reaction dd2 02:43 Drug: Ondansetron IVP 4 mg IVP once; over 2 minutes Route: IVP; Site: right antecubital;dd2 02:58 Follow up: Response: No adverse reaction dd2 02:43 Drug: morphine IVP or IV 4 mg IVP once over 4 mins Route: IVP; Infused Over: 4 mins; dd2 Site: right antecubital; 02:58 Follow up: Response: No adverse reaction dd2 02:43 Drug: NS 0.9% IV 1000 ml IV at 1 bolus Per protocol; to be given as a bolus over 60 dd2 minutes Route: IV; Rate: 1 bolus; Site: right antecubital; 02:58 Follow up: Response: No adverse reaction dd2 03:43 Follow up: Response: No adverse reaction; IV Status: Completed infusion; IV Intake: dd2 1000ml 06:43 Drug: morphine IVP or IV 4 mg IVP once over 4 mins Route: IVP; Infused Over: 4 mins; dd2 Site: right antecubital; 07:00 Follow up: Response: No adverse reaction dd2 06:43 Drug: Pantoprazole IVP 40 mg IVP once Route: IVP; Site: right antecubital; dd2 07:00 Follow up: Response: No adverse reaction dd2 Disposition Summary: 10/09/24 06:42 Discharge Ordered Notes: Location: Home rt Problem: new rt Symptoms: have improved rt Condition: Stable rt Diagnosis - Abdominal pain, unspecified rt - Rectal bleeding rt Followup: rt - With: Private Physician - When: 2 - 3 days - Reason: Discharge Instructions: - Discharge Summary Sheet rt - Abdominal Pain, Adult rt - Rectal Bleeding rt Forms: - Medication Reconciliation Form rt - Antibiotic Education rt - Prescription Opioid Use rt - Patient Portal Instructions rt - Leadership Thank You Letter rt Prescriptions: - acetaminophen-codeine 300-30 mg Oral tablet - take 1 tablet ORAL route every 6 hours as needed for pain; 15 tablet; Refills: rt 0, Product Selection Permitted - ondansetron 4 mg Oral Tablet,disintegrating - take 1 tablet ORAL route every 6 hours as needed for nausea; 18 tablet; rt Refills: 0, Product Selection Permitted - Augmentin 875-125 mg Oral Tablet - take 1 tablet ORAL route every 12 hours for 10 days; 20 tablet; Refills: 0, rt Product Selection Permitted - Protonix 40 mg Oral Tablet - take 1 tablet ORAL route once daily; 30 tablet; Refills: 0, Product Selection rt Permitted Signatures: Dispatcher [employer] Uriel Wagner MD MD rt VY BUSTOS RN RN dd2
[2024-10-09 07:26] VITALS: TEMP 98.2
[2024-10-09 07:29] VITALS: BP 108/75; O2SAT 100
== END 2024-10-09 07:03 | disposition home or self-care (01) ==
LOC: ER 00:51
DX: R10.84 Generalized abdominal pain (principal); K62.5 Hemorrhage of anus and rectum
CPT/HCPCS: 96361; 85025; 81001; 36415; 83690; 80053; 74177; 96375; 96374; 99284; Q9967; J2470; J2405; J7030

== ENCOUNTER 2024-10-11 22:06 | Emergency (ER) | payer OTHER ==
[2024-10-11] MEDS ORDERED: KETOROLAC 30 MG/ML INJ ONE (23:16)
[2024-10-11] MEDS ORDERED: LIDOCAINE VISCOUS 2% 10ML ORAL SOLN ONE (23:17)
[2024-10-11] MEDS ORDERED: HYDROCODONE/APAP 5/325 MG TAB ONE (23:17)
--- NOTE | 2024-10-12 00:03 | ER ---
Nurse's Notes [facility] Name: Lizzeth Almaraz Age: 39 yrs Sex: Female : 1985 Arrival Date: 10/11/2024 Time: 22:06 Bed 26 Private MD: Diagnosis: Anal fissure, unspecified Presentation: 10/11 22:24 Chief complaint: Patient states: Patient had abdominal pain with diarrhea this past me1 weekend and is now concerned that her anal fissure is infected. Reports increased pain 8/10 w/purulent drainage from fissure. Called Dr Bright's office and has an appt to see him tomorrow morning but pain has been too intense to wait. Coronavirus screen: Vaccine status: Patient reports being unvaccinated. Ebola Screen: No symptoms or risks identified at this time. Initial Sepsis Screen: Does the patient meet any 2 criteria? No. Patient's initial sepsis screen is negative. Does the patient have a suspected source of infection?. Risk Assessment: Do you want to hurt yourself or someone else? Patient reports no desire to harm self or others. Onset of symptoms is unknown. 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 - Infectious Disease History:: Denies. - Social history:: Smoking status: Patient denies any tobacco usage or history of. Screenin/11 01:[address] [facility] ED Fall Risk Assessment (Adult) History of falling in the last 3 months, jb4 including since admission No falls in past 3 months (0 pts) Confusion or Disorientation No (0 pts) Intoxicated or Sedated No (0 pts) Impaired Gait No (0 pts) Mobility Assist Device Used No (0 pt) Altered Elimination No (0 pt) Score/Fall Risk Level 0 - 2 = Low Risk Oriented to surroundings, Maintained a safe environment. Abuse screen: Denies threats or abuse. Nutritional screening: No deficits noted. Tuberculosis screening: No symptoms or risk factors identified. Assessment: 10/11 23:00 General: Appears in no apparent distress. uncomfortable, Behavior is calm, cooperative, jb4 appropriate for age. Pain: Complains of pain in gluteal cleft Pain does not radiate. Pain currently is 10 out of 10 on a pain scale. Neuro: Level of Consciousness is awake, alert, obeys commands, Oriented to person, place, time, situation. Cardiovascular: Patient's skin is warm and dry. Respiratory: Airway is patent Respiratory effort is even, unlabored, Respiratory pattern is regular, symmetrical. Derm: Skin is intact, Skin is pink, warm \T\ dry. Musculoskeletal: Circulation, motion, and sensation intact. Range of motion: intact in all extremities. 10/12 00:00 Reassessment: Patient appears in no apparent distress at this time. Patient and/or jb4 family updated on plan of care and expected duration. Pain level reassessed. Patient is alert, oriented x 3, equal unlabored respirations, skin warm/dry/pink. Vital Signs: 10/11 22:24 BP 113 / 72; Pulse 63; Resp 18; Temp 98.7; Pulse Ox 97% ; Weight 81.65 kg; Height 5 ft. me1 1 in. ; Pain 8/10; 22:24 Body Mass Index 34.01 (81.65 kg, 154.94 cm) me1 22:24 Pain Scale: Adult nd1 ED Course: 22:08 Patient arrived in ED. ra3 22:10 Jairo Resendiz MD is Attending Physician. ec2 22:27 Triage completed. me1 22:27 Arm band placed on Patient placed in waiting room. me1 10/12 00:10 Patient has correct armband on for positive identification. Bed in low position. Call jb4 light in reach. Side rails up X 1. Provided Education on: discharge instructions. . 00:10 No provider procedures requiring assistance completed. Patient did not have IV access jb4 during this emergency room visit. Administered Medications: 10/11 23:27 Drug: Ketorolac IM 30 mg IM once Route: IM; Site: right deltoid; jb4 23:27 Drug: HYDROcodone-acetaminophen PO 5 mg-325 mg 2 tabs PO once Route: PO; jb4 23:28 Drug: Lidocaine Mucous Membrane Gel 2 % 1 ea 15 ml Mucous Membrane once {Note: jb4 administered 10ml syringe per provider..} Volume: 15 ml; Route: Mucous Membrane; Outcome: 10/12 00:02 Discharge ordered by . ec2 00:10 Discharged to home ambulatory, jb4 00:10 Condition: stable 00:10 Discharge instructions given to patient, Instructed on discharge instructions, follow up and referral plans. medication usage, Demonstrated understanding of instructions, follow-up care, medications, Prescriptions given X 2, 01:12 Patient left the ED. jb4 Signatures: Jonn Brasher RN RN jb4 Angela Abdalla RN RN me1 Jairo Resendiz MD MD ec2 Shira Sheppard 3
--- NOTE | 2024-10-12 00:03 | EDPHYS ---
Physician Documentation [facility] Name: Lizzeth Almaraz Age: 39 yrs Sex: Female : 1985 Arrival Date: 10/11/2024 Time: 22:06 Bed 26 Private MD: ED Physician Jairo Resendiz HPI: 10/11 22:50 This 39 yrs old Female presents to ER via Ambulatory with complaints of Wound ec2 Check. 22:50 Patient arrives today for evaluation of rectal pain. Patient with history of previous ec2 perirectal abscess, states that she has fissure that has gotten worse. Patient is having diarrhea. Reports no fevers or chills or nausea or vomiting. Reports purulence.. 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 - Infectious Disease History:: Denies. - Social history:: Smoking status: Patient denies any tobacco usage or history of. ROS: 22:50 Constitutional: as per hpi ec2 Exam: 22:50 Constitutional: GEN: NAD Head: atraumatic Eyes: EOMI Ears: External ears are ec2 normal. CV: regular rate LUNGS: no respiratory distress ABD: non-distended. : Performed under nursing supervision, Angela, superficial ulcer noted to the 7 o'clock position. No purulence appreciated SKIN: no evidence of rashes MSK: no evidence of trauma Vital Signs: 22:24 BP 113 / 72; Pulse 63; Resp 18; Temp 98.7; Pulse Ox 97% ; Weight 81.65 kg; Height 5 ft. me1 1 in. ; Pain 8/10; 22:24 Body Mass Index 34.01 (81.65 kg, 154.94 cm) me1 22:24 Pain Scale: Adult me1 MDM: 22:28 Medical Screening Exam initiated ec2 22:51 Data reviewed: vital signs, nurses notes. ED course: Patient arrives today for ec2 evaluation of rectal pain. Examination yields findings as above. Will treat the patient's pain. Doubt abscess given the appearance, patient otherwise nontoxic and well-appearing.. 10/12 00:02 ED course: On reassessment patient reports marked improvement in symptoms. Patient with ec2 appointment with Dr. Bright in the morning, will have the patient follow-up with him to further discuss management. Will hold off on any antibiotics at this time.. 10/11 22:36 Order name: Misc. Order: gauze soaked in lidocaine placed to affected area; Complete ec2 Time: 23:27 Administered Medications: 10/11 23:27 Drug: Ketorolac IM 30 mg IM once Route: IM; Site: right deltoid; jb4 23:27 Drug: HYDROcodone-acetaminophen PO 5 mg-325 mg 2 tabs PO once Route: PO; jb4 23:28 Drug: Lidocaine Mucous Membrane Gel 2 % 1 ea 15 ml Mucous Membrane once {Note: jb4 administered 10ml syringe per provider..} Volume: 15 ml; Route: Mucous Membrane; Disposition Summary: 10/12/24 00:02 Discharge Ordered Notes: Location: Home ec2 Condition: Stable ec2 Diagnosis - Anal fissure, unspecified ec2 Followup: ec2 - With: Private Physician - When: - Reason: Re-evaluation by your physician Discharge Instructions: - Discharge Summary Sheet ec2 - Anal Fissure, Adult, [id number] ec2 Forms: - Medication Reconciliation Form ec2 - Antibiotic Education ec2 - Prescription Opioid Use ec2 - Patient Portal Instructions ec2 - Leadership Thank You Letter ec2 Prescriptions: - acetaminophen-codeine 300-30 mg Oral tablet - take 1 tablet ORAL route every 12 hours as needed for pain; 10 tablet; Refills: ec2 0, Product Selection Permitted - lidocaine 4 % gel - apply 1 application RECTAL route 4 times per day as needed for pain; 20 ec2 milliliter; Refills: 0, Product Selection Permitted Signatures: Jonn Brasher RN RN jb4 Angela Abdalla RN RN me1 Jairo Resendiz MD MD ec2
[2024-10-12 04:41] VITALS: BP 113/72; TEMP 98.7; O2SAT 97
== END 2024-10-12 01:12 | disposition home or self-care (01) ==
LOC: ER 22:06
DX: K60.2 Anal fissure, unspecified (principal); R19.7 Diarrhea, unspecified

== ENCOUNTER 2024-10-23 20:39 | Emergency (ER) | payer OTHER ==
[2024-10-23] MEDS ORDERED: KETOROLAC 30 MG/ML INJ ONE (22:07)
[2024-10-23] MEDS ORDERED: DIPHENHYDRAMINE 50 MG/ML VIAL ONE (22:07)
[2024-10-23] MEDS ORDERED: dexAMETHasone 10 MG/ML VIAL ONE (22:07)
[2024-10-23] MEDS ORDERED: FAMOTIDINE 20 MG/2 ML VIAL IV ONE (22:07)
[2024-10-23] MEDS ORDERED: METOCLOPRAMIDE 10 MG/2mL INJ ONE (22:07)
[2024-10-23] MEDS ORDERED: NA CHLORIDE 0.9% 1,000 ML ONE (22:08)
--- NOTE | 2024-10-23 22:16 | RAD REPORT ---
EXAM: CT Head Brain Wo Cont HISTORY: blurry vision left eye COMPARISON: None TECHNIQUE: Multiple contiguous axial images were obtained for a CT of the brain without contrast. Sag ittal and coronal reformats were performed. One or more of the following dose reduction techniques were used: Automated exposure control, adjus tment of the mA and kV according to patient size, and iterative reconstruction. Unless otherwise specified, incidental findings do not require dedicated imaging follow-up. FINDINGS: No evidence of hydrocephalus, intracranial hemorrhage, or extra-axial fluid collection. The brain is normal in morphology. The calvarium is intact. The visualized paranasal sinuses and mastoid air cells are essentially clear . IMPRESSION: No evidence of acute intracranial abnormality.
--- NOTE | 2024-10-23 23:19 | EDPHYS ---
Physician Documentation [facility] Name: Lizzeth Almaraz Age: 39 yrs Sex: Female : 1985 Arrival Date: 10/23/2024 Time: 20:39 Bed 5 Private MD: ED Physician Jose Foreman HPI: 10/23 20:52 This 39 yrs old Female presents to ER via Ambulatory with complaints of Blurred Vision. sb4 20:54 started taking metronidazole this morning for a rectal infection. this evening started sb4 experiencing blurry vision/visual changes in her left eye. denies any pain. states that she sees "a colorful [place]" in her field of vision. does wear glasses. denies any trauma to the eye. denies any pain around the eye, headache, or painful eye movements. no rash, n/v/d, sob, chills, wheezing. 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 - Infectious Disease History:: Denies. - Social history:: Smoking status: Patient denies any tobacco usage or history of. Patient/guardian denies using alcohol, street drugs. ROS: 20:54 Constitutional: Negative for fever, chills, and weight loss, sb4 20:54 Eyes: Positive for blurry vision, visual disturbance, of the left eye, 20:54 All other systems are negative, Exam: 21:30 Constitutional: This is a well developed, well nourished patient who is awake, alert, sb4 and in no acute distress. Head/Face: Normocephalic, atraumatic. ENT: Mucous membranes moist. Respiratory: No increased work of breathing, no retractions or nasal flaring. Skin: Warm, dry with normal turgor. Normal color with no rashes, no lesions, and no evidence of cellulitis. MS/ Extremity: Pulses equal, no cyanosis. Neurovascular intact. Full, normal range of motion. Neuro: Awake and alert, GCS 15, oriented to person, place, time, and situation. Motor strength 5/5 in all extremities. Sensory grossly intact. 21:30 Eyes: Periorbital structures: appear normal, Pupils: equal, round, and reactive to light and accomodation, Extraocular movements: intact throughout, Conjunctiva: normal, Lids and lashes: appear normal, 23:20 Radiologist reports: negative sb4 Vital Signs: 20:47 BP 124 / 78; Pulse 78; Resp 16 S; Temp 98.1(O); Pulse Ox 98% on R/A; Weight 81.19 kg lg3 (R); Height 5 ft. 1 in. (R); Pain 0/10; 22:09 BP 100 / 58; Pulse 68; Resp 18; Pulse Ox 97% ; cp4 22:58 BP 113 / 87; Pulse 58; Resp 18; Pulse Ox 98% on R/A; br2 20:47 Body Mass Index 33.82 (81.19 kg, 154.94 cm) lg3 20:47 Pain Scale: Adult lg3 Visual Acuity: 22:00 Left Eye Visual acuity 20/100, Pupil size 3 mm, Normal, React To Light; Right Eye br2 Visual acuity 20/30, Pupil size 3 mm, Normal, React To Light; With Lenses; MDM: 20:44 Medical Screening Exam initiated sb4 23:17 Data reviewed: vital signs, nurses notes, lab test result(s), radiologic studies, and sb4 as a result, I will discharge patient. Counseling: I had a detailed discussion with the patient and/or guardian regarding the historical points, exam findings, and any diagnostic results supporting the discharge/admit diagnosis, lab results, radiology results, the need for outpatient follow up, for definitive care, to return to the emergency department if symptoms worsen or persist or if there are any questions or concerns that arise at home. 10/23 21:41 Order name: Head Brain Wo Cont; Complete Time: 22:22 EDMS 10/23 20:52 Order name: Visual Acuity; Complete Time: 22:30 sb4 10/23 21:36 Order name: IV Start; Complete Time: 22:30 sb4 Administered Medications: 21:35 CANCELLED (Physician Discretion): [id number] mg PO once sb4 21:35 CANCELLED (Physician Discretion): [id number] mg PO once sb4 21:35 CANCELLED (Physician Discretion): [id number] mg PO once sb4 22:18 Drug: Ketorolac IVP 15 mg IVP once Route: IVP; Site: right antecubital; br2 23:42 Follow up: Response: No adverse reaction br2 22:18 Drug: Decadron - Dexamethasone IVP 10 mg IVP once Route: IVP; Site: right antecubital; br2 23:41 Follow up: Response: No adverse reaction br2 22:18 Drug: Famotidine IVP 20 mg IVP once; dilute with 10 mL 0.9% NaCl; give over 2 minutes br2 Route: IVP; Site: right antecubital; 23:41 Follow up: Response: No adverse reaction br2 22:18 Drug: metoCLOPramide IVP 10 mg IVP once; over 1 to 2 minutes Route: IVP; Site: right br2 antecubital; 23:41 Follow up: Response: No adverse reaction br2 22:18 Drug: diphenhydrAMINE IVP 25 mg IVP once Route: IVP; Site: right antecubital; br2 23:41 Follow up: Response: No adverse reaction br2 22:19 Drug: NS 0.9% IV 1000 ml IV at 1 bolus Per protocol; to be given as a bolus over 60 br2 minutes Route: IV; Rate: 1 bolus; Site: right antecubital; 23:42 Follow up: IV Status: Completed infusion; IV Intake: 1000ml br2 Disposition: 10/24 01:43 I was immediately available on-site in the Emergency Department for consultation in the ms3 care of the patient. Disposition Summary: 10/23/24 23:18 Discharge Ordered Problem: new sb4 Symptoms: have improved sb4 Condition: Stable sb4 Diagnosis - Adverse effect of other systemic antibiotics sb4 Followup: sb4 - With: Emergency Department - When: As needed - Reason: Trouble breathing, Worsening of condition Discharge Instructions: - Discharge Summary Sheet sb4 - Blurred Vision, Adult sb4 Forms: - Patient Portal Instructions sb4 - Leadership Thank You Letter sb4 Prescriptions: - Prednisone 20 mg Oral Tablet - take 1 tablet ORAL route once daily for 5 days; 5 tablet; Refills: 0, Product sb4 Selection Permitted Signatures: Dispatcher [employer] EDMS Jennifer Pack, RN RN lg3 Jose Foreman, DO ms3 Dia Chou PA-C PAMaxwell sb4 Christine Sanches, RN RN br2 Corrections: (The following items were deleted from the chart) 10/23 21:03 20:58 CT-ORBITS WITHOUT CONTRAST ordered. EDMS EDMS 21:35 20:52 predniSONE PO 40 mg PO once ordered. sb4 sb4 21:35 20:52 diphenhydrAMINE PO 25 mg PO once ordered. sb4 sb4 21:35 20:52 Famotidine PO 20 mg PO once ordered. sb4 sb4 21:41 21:03 Orbits Wo Con W/ Mpr ordered. EDMS EDMS
--- NOTE | 2024-10-23 23:19 | ER ---
Nurse's Notes [facility] Name: Lizzeth Almaraz Age: 39 yrs Sex: Female : 1985 Arrival Date: 10/23/2024 Time: 20:39 Bed 5 Private MD: Diagnosis: Adverse effect of other systemic antibiotics Presentation: 10/23 20:47 Chief complaint: Patient states: started new ABX this morning and 1 hr ago i started lg3 having blurry vision in my left eye. denies guajardo at this time. Coronavirus screen: Client denies travel out of the [place] in the last 14 days. At this time, the client does not indicate any symptoms associated with coronavirus-19. Ebola Screen: No symptoms or risks identified at this time. Initial Sepsis Screen: Does the patient meet any 2 criteria? No. Patient's initial sepsis screen is negative. Does the patient have a suspected source of infection? No. Patient's initial sepsis screen is negative. Risk Assessment: Do you want to hurt yourself or someone else? Patient reports no desire to harm self or others. Onset of symptoms was October 23, 2024. 20:47 Method Of Arrival: Ambulatory lg3 20:47 Acuity: SAKSHI 4 lg3 Triage Assessment: 20:48 General: Appears in no apparent distress. comfortable, Behavior is calm, cooperative. lg3 Pain: Denies pain. EENT: Reports blurred vision in left eye. Neuro: No deficits noted. Win Agitation-Sedation Scale (RASS): 0 - Alert and Calm Level of Consciousness is awake, alert, obeys commands, Oriented to person, place, time, situation. Cardiovascular: No deficits noted. Denies chest pain, shortness of breath, Capillary refill < 3 seconds Clubbing of nail beds is absent JVD is absent Patient's skin is warm and dry. Respiratory: No deficits noted. Airway is patent Respiratory effort is even, unlabored, Respiratory pattern is regular, symmetrical. GI: No deficits noted. No signs and/or symptoms were reported involving the gastrointestinal system. : No signs and/or symptoms were reported regarding the genitourinary system. Derm: No deficits noted. No signs and/or symptoms reported regarding the dermatologic system. Skin is intact, is healthy with good turgor, Skin is dry, Skin is normal, Skin temperature is warm. Musculoskeletal: No deficits noted. No signs and/or symptoms reported regarding the musculoskeletal system. Circulation, motion, and sensation intact. Range of motion: intact in all extremities. 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 - Infectious Disease History:: Denies. - Social history:: Smoking status: Patient denies any tobacco usage or history of. Patient/guardian denies using alcohol, street drugs. Screenin:52 [facility] ED Fall Risk Assessment (Adult) History of falling in the last 3 months, lg3 including since admission No falls in past 3 months (0 pts) Confusion or Disorientation No (0 pts) Intoxicated or Sedated No (0 pts) Impaired Gait No (0 pts) Mobility Assist Device Used No (0 pt) Altered Elimination No (0 pt) Score/Fall Risk Level 0 - 2 = Low Risk Oriented to surroundings, Maintained a safe environment, Educated pt \T\ family on fall prevention, incl call for assistance when getting out of bed, Assessed \T\ reinforced patient's understanding of fall precautions. Abuse screen: Denies threats or abuse. Denies injuries from another. Nutritional screening: No deficits noted. Tuberculosis screening: No symptoms or risk factors identified. Assessment: 20:52 General: see triage assessment. lg3 22:19 Reassessment: Patient and/or family updated on plan of care and expected duration. Pain br2 level reassessed. Patient is alert, oriented x 3, equal unlabored respirations, skin warm/dry/pink. EENT: Reports blurred vision in outer aspect of conjuctiva of left eye, iris of left eye and inner aspect of conjunctiva of left eye. Vital Signs: 20:47 BP 124 / 78; Pulse 78; Resp 16 S; Temp 98.1(O); Pulse Ox 98% on R/A; Weight 81.19 kg lg3 (R); Height 5 ft. 1 in. (R); Pain 0/10; 22:09 BP 100 / 58; Pulse 68; Resp 18; Pulse Ox 97% ; cp4 22:58 BP 113 / 87; Pulse 58; Resp 18; Pulse Ox 98% on R/A; br2 20:47 Body Mass Index 33.82 (81.19 kg, 154.94 cm) lg3 20:47 Pain Scale: Adult lg3 Visual Acuity: 22:00 Left Eye Visual acuity 20/100, Pupil size 3 mm, Normal, React To Light; Right Eye br2 Visual acuity 20/30, Pupil size 3 mm, Normal, React To Light; With Lenses; ED Course: 10/22 23:40 IV discontinued, intact, bleeding controlled, No redness/swelling at site. Pressure br2 dressing applied. 10/23 20:43 Patient arrived in ED. jj6 20:44 Dia Chou PA-C is PHCP. sb4 20:44 Jose Foreman DO is Attending Physician. sb4 20:48 Triage completed. lg3 20:48 Arm band placed on right wrist. lg3 20:52 Patient taken to lobby, ambulatory, steady gait. lg3 20:52 Patient has correct armband on for positive identification. lg3 21:47 Head Brain Wo Cont In Process Unspecified. EDMS 21:53 Christine Sanches, RN is Primary Nurse. br2 22:19 Inserted saline lock: 20 gauge in right antecubital area, using aseptic technique. br2 Blood collected. Flushed with 10 mL NS. 23:42 No provider procedures requiring assistance completed. br2 Administered Medications: 21:35 CANCELLED (Physician Discretion): [id number] mg PO once sb4 21:35 CANCELLED (Physician Discretion): [id number] mg PO once sb4 21:35 CANCELLED (Physician Discretion): [id number] mg PO once sb4 22:18 Drug: Ketorolac IVP 15 mg IVP once Route: IVP; Site: right antecubital; br2 23:42 Follow up: Response: No adverse reaction br2 22:18 Drug: Decadron - Dexamethasone IVP 10 mg IVP once Route: IVP; Site: right antecubital; br2 23:41 Follow up: Response: No adverse reaction br2 22:18 Drug: Famotidine IVP 20 mg IVP once; dilute with 10 mL 0.9% NaCl; give over 2 minutes br2 Route: IVP; Site: right antecubital; 23:41 Follow up: Response: No adverse reaction br2 22:18 Drug: metoCLOPramide IVP 10 mg IVP once; over 1 to 2 minutes Route: IVP; Site: right br2 antecubital; 23:41 Follow up: Response: No adverse reaction br2 22:18 Drug: diphenhydrAMINE IVP 25 mg IVP once Route: IVP; Site: right antecubital; br2 23:41 Follow up: Response: No adverse reaction br2 22:19 Drug: NS 0.9% IV 1000 ml IV at 1 bolus Per protocol; to be given as a bolus over 60 br2 minutes Route: IV; Rate: 1 bolus; Site: right antecubital; 23:42 Follow up: IV Status: Completed infusion; IV Intake: 1000ml br2 Medication: 20:52 VIS not applicable for this client. lg3 Intake: 23:42 IV: 1000ml; Total: 1000ml. br2 Outcome: 10/22 23:40 Discharged to home ambulatory, br2 Condition: improved Discharge instructions given to patient, Instructed on discharge instructions, follow up and referral plans. the need for admit, Demonstrated understanding of instructions, Prescriptions given X 1, 10/23 23:18 Discharge ordered by . sb4 23:43 Patient left the ED. br2 Signatures: Dispatcher [employer] EDMS Jennifer Pack RN RN lg3 Remedios [email or web address] Dia Chou PAMaxwell PAMaxwell [email or web address] Dagmar Herbert cp4 Christine Sanches RN RN br2
[2024-10-24 00:23] VITALS: TEMP 98.1; O2SAT 98
[2024-10-24 00:25] VITALS: BP 113/87
== END 2024-10-23 23:43 | disposition home or self-care (01) ==
LOC: ER 20:39
DX: H53.8 Other visual disturbances (principal); T36.8X5A Adverse effect of other systemic antibiotics, initial encounter
CPT/HCPCS: 96361; 70450; 96375; 96374; 99284; J2765; J1200; J1100; J7030

== ENCOUNTER 2024-11-02 23:54 | Emergency (ER) | payer OTHER ==
[2024-11-03] MEDS ORDERED: CEFTRIAXONE 1000 MG/VIAL ONE (01:01)
[2024-11-03] MEDS ORDERED: PROMETHAZINE 25 MG TABLET ONE (01:01)
[2024-11-03] MEDS ORDERED: LIDOCAINE 1% MPF 2 ML AMPULE ONE (01:01)
[2024-11-03] MEDS ORDERED: HYDROCODONE/APAP 5/325 MG TAB ONE (01:02)
[2024-11-03] MEDS ORDERED: KETOROLAC 30 MG/ML INJ ONE (01:02)
--- NOTE | 2024-11-03 01:51 | ER ---
Nurse's Notes [facility] Name: Lizzeth Almaraz Age: 39 yrs Sex: Female : 1985 Arrival Date: 11/02/2024 Time: 23:54 Bed 18 Private MD: Diagnosis: Perianal incision pain and drainage, acute postoperative pain, acute rectal and anal pain Presentation: 11/03 00:23 Chief complaint: Patient states: I had a rectal sx Friday with md RUSTAM, now i think bm8 the site is infected because i am running fever, pain is getting worse not better and there is blood and pus from the surgical site. Coronavirus screen: At this time, the client does not indicate any symptoms associated with coronavirus-19. Ebola Screen: Patient negative for fever greater than or equal to 101.5 degrees Fahrenheit, and additional compatible Ebola Virus Disease symptoms Patient denies exposure to infectious person. Patient denies travel to an Ebola-affected area in the 21 days before illness onset. No symptoms or risks identified at this time. Initial Sepsis Screen: Does the patient meet any 2 criteria? No. Patient's initial sepsis screen is negative. Does the patient have a suspected source of infection? No. Patient's initial sepsis screen is negative. Risk Assessment: Do you want to hurt yourself or someone else? Patient reports no desire to harm self or others. Onset of symptoms was November 03, 2024 at 00:25. 00:23 Method Of Arrival: Ambulatory bm8 00:23 Acuity: SAKSHI 3 bm8 Triage Assessment: 00:25 General: Appears in no apparent distress. uncomfortable, Behavior is calm, cooperative, bm8 appropriate for age. Pain: Complains of pain in gluteal cleft Pain currently is 8 out of 10 on a pain scale. Neuro: Level of Consciousness is awake, alert, obeys commands, Oriented to person, place, time, situation, Appropriate for age. Cardiovascular: Denies chest pain, Capillary refill < 3 seconds in bilateral fingers Patient's skin is warm and dry. Respiratory: Airway is patent Respiratory effort is even, unlabored, Respiratory pattern is regular, symmetrical. GI: Reports rectal bleeding. : No signs and/or symptoms were reported regarding the genitourinary system. Derm: No signs and/or symptoms reported regarding the dermatologic system. Musculoskeletal: No signs and/or symptoms reported regarding the musculoskeletal system. 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 - Infectious Disease History:: Denies. - Social history:: Smoking status: Patient denies any tobacco usage or history of. - Family history:: not pertinent. Screenin:46 [facility] ED Fall Risk Assessment (Adult) History of falling in the last 3 months, aa10 including since admission No falls in past 3 months (0 pts) Confusion or Disorientation No (0 pts) Intoxicated or Sedated No (0 pts) Impaired Gait No (0 pts) Mobility Assist Device Used No (0 pt) Altered Elimination No (0 pt) Score/Fall Risk Level 0 - 2 = Low Risk Oriented to surroundings, Maintained a safe environment, Educated pt \T\ family on fall prevention, incl call for assistance when getting out of bed, Assessed \T\ reinforced patient's understanding of fall precautions, Provided non-skid footwear, Hourly rounding (assess needs \T\ fall precautionary measures) done. Abuse screen: Denies threats or abuse. Denies injuries from another. Nutritional screening: No deficits noted. Tuberculosis screening: No symptoms or risk factors identified. Assessment: 00:43 General: Appears in no apparent distress. uncomfortable, well groomed, well developed, aa10 Behavior is calm, cooperative, appropriate for age, crying, Smells of Reports fever for 12-24 hours. Pain: Complains of pain in buttocks Pain does not radiate. Pain currently is 9 out of 10 on a pain scale. Quality of pain is described as aching, throbbing, Pain began gradually, Is continuous, Alleviated by medications, rest, Aggravated by exercise, increased activity, Noted to be crying, Current management is with Tylenol, tramadol. Neuro: No deficits noted. Level of Consciousness is awake, alert, obeys commands, confused, Oriented to person, place, time, situation, Appropriate for age Cardroom Supervisor are equal bilaterally Moves all extremities. Gait is steady, Speech is normal. Cardiovascular: No deficits noted. Capillary refill < 3 seconds Clubbing of nail beds is absent JVD is absent Patient's skin is warm and dry. Respiratory: No deficits noted. Airway is patent. : No deficits noted. from surgical site on the right buttock cheek, discharge is yellow, but not foul smelling. 02:45 Reassessment: Patient appears in no apparent distress at this time. Patient and/or bm8 family updated on plan of care and expected duration. Pain level reassessed. Patient is alert, oriented x 3, equal unlabored respirations, skin warm/dry/pink. Patient denies pain at this time. Patient states feeling better. Patient states symptoms have improved. Vital Signs: 00:23 BP 115 / 79; Pulse 70; Resp 16; Temp 98.1; Pulse Ox 96% ; Weight 81.65 kg; Height 5 ft. bm8 1 in. ; Pain 8/10; 02:03 BP 111 / 75; Pulse 61; Resp 20; Temp 98.6; Pulse Ox 95% on R/A; MAP 83 mmHg; aa10 02:45 BP 110 / 72; Pulse 59; Resp 17; Temp 98.1; Pulse Ox 95% ; Pain 0/10; bm8 00:23 Body Mass Index 34.01 (81.65 kg, 154.94 cm) bm8 00:23 Pain Scale: Adult bm8 02:45 Pain Scale: Adult bm8 [place] Coma Score: 02:45 Eye Response: spontaneous(4). Motor Response: obeys commands(6). Verbal Response: bm8 oriented(5). Total: 15. 23:30 Eye Response: spontaneous(4). Motor Response: obeys commands(6). Verbal Response: sp4 oriented(5). Total: 15. ED Course: 11/02 23:56 Patient arrived in ED. jj6 03/05 00:07 Kwadwo Khan MD is Attending Physician. sp4 00:25 Triage completed. bm8 00:25 Arm band placed on right wrist. bm8 00:47 Patient has correct armband on for positive identification. Allergy band placed. Fall aa10 risk band placed. Placed in gown. Bed in low position. Call light in reach. Side rails up X2. Provided Education on: about plan of care. 00:47 Assisted provider with: surgical site examination. Patient did not have IV access aa10 during this emergency room visit. 02:45 Edmundo Pascual, RN is Primary Nurse. bm8 02:45 Door closed. Warm blanket given. Pillow given. Verbal reassurance given. Head of bed bm8 elevated. Administered Medications: 01:27 Drug: Promethazine PO 25 mg PO once Route: PO; aa10 02:05 Follow up: Response: No adverse reaction; Marked relief of symptoms aa10 01:28 Drug: Ketorolac IM 60 mg IM once Route: IM; Site: right deltoid; aa10 02:05 Follow up: Response: No adverse reaction; Marked relief of symptoms aa10 01:28 Drug: Rocephin (cefTRIAXone) IM 1 grams IM once Route: IM; Site: left ventrogluteal; aa10 02:05 Follow up: Response: No adverse reaction; Marked relief of symptoms aa10 01:28 Drug: HYDROcodone-acetaminophen PO 5 mg-325 mg 2 tabs PO once Route: PO; aa10 02:05 Follow up: Response: No adverse reaction; Marked relief of symptoms aa10 Medication: 00:47 VIS not applicable for this client. aa10 Outcome: 01:50 Discharge ordered by . sp4 02:04 Discharged to home ambulatory, aa10 02:04 Condition: good 02:04 Discharge instructions given to patient, Instructed on discharge instructions, Demonstrated understanding of instructions, Prescriptions given X 02:46 Patient left the ED. bm8 Signatures: Remedios Pedro jj6 Kwadwo Khan MD MD sp4 Edmundo Pascual, RN RN bm8 Tuan Dean RN RN aa10
--- NOTE | 2024-11-03 01:51 | EDPHYS ---
Physician Documentation [facility] Name: Lizzeth Almaraz Age: 39 yrs Sex: Female : 1985 Arrival Date: 11/02/2024 Time: 23:54 Bed 18 Private MD: ED Physician Kwadwo Kahn HPI: 11/03 00:07 This 39 yrs old Female presents to ER via Unassigned with complaints of Post sp4 Surgical Pain, Post Surgical Bleeding. 23:30 39-year-old female presents with acute rectal pain and drainage from sp4 postoperative incision in the perianal location.. 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 - Infectious Disease History:: Denies. - Social history:: Smoking status: Patient denies any tobacco usage or history of. - Family history:: not pertinent. ROS: 23:30 Constitutional: Negative for fever, chills, and weight loss, positive for perianal pain sp4 and positive from postoperative incision and perianal location 23:30 All other systems are negative, Exam: 23:30 Constitutional: This is a well developed, well nourished patient who is awake, alert, sp4 and in no acute distress. Head/Face: Normocephalic, atraumatic. Eyes: Pupils equal round and reactive to light, extra-ocular motions intact. Lids and lashes normal. Conjunctiva and sclera are not injected. Cornea within normal limits. Periorbital areas with no swelling, redness, or edema. ENT: Nares patent. No nasal discharge, no septal abnormalities noted. Tympanic membranes are normal and external auditory canals are clear. Oropharynx with no redness, swelling, or masses, exudates, or evidence of obstruction, uvula midline. Mucous membranes moist. Neck: Trachea midline, no thyromegaly or masses palpated, and no cervical lymphadenopathy. Supple, full range of motion without nuchal rigidity, or vertebral point tenderness. Chest/axilla: Normal chest wall appearance and motion. Nontender with no deformity. No lesions are appreciated. Cardiovascular: Regular rate and rhythm with a normal S1 and S2. No gallops, murmurs, or rubs. Normal PMI, no JVD. No pulse deficits. Respiratory: Lungs have equal breath sounds bilaterally, clear to auscultation and percussion. No rales, rhonchi or wheezes noted. No increased work of breathing, no retractions or nasal flaring. Abdomen/GI: Soft, with normal bowel sounds. No distension or tympany. No guarding or rebound. No evidence of tenderness throughout. Back: No spinal tenderness. No costovertebral tenderness. Skin: Warm, dry with normal turgor. Normal color with no rashes, no lesions, and no evidence of cellulitis. MS/ Extremity: Pulses equal, no cyanosis. Neurovascular intact. Full, normal range of motion. Neuro: Awake and alert, GCS 15, oriented to person, place, time, and situation. Cranial nerves II-XII grossly intact. Motor strength 5/5 in all extremities. Sensory grossly intact. Psych: Awake, alert, with orientation to person, place and time. Behavior, mood, and affect are within normal limits 23:30 : There is perianal postoperative incision at 6:00 location there is also small amount of drainage without signs of cellulitis or significant infection. No bleeding, Vital Signs: 00:23 BP 115 / 79; Pulse 70; Resp 16; Temp 98.1; Pulse Ox 96% ; Weight 81.65 kg; Height 5 ft. bm8 1 in. ; Pain 8/10; 02:03 BP 111 / 75; Pulse 61; Resp 20; Temp 98.6; Pulse Ox 95% on R/A; MAP 83 mmHg; aa10 02:45 BP 110 / 72; Pulse 59; Resp 17; Temp 98.1; Pulse Ox 95% ; Pain 0/10; bm8 00:23 Body Mass Index 34.01 (81.65 kg, 154.94 cm) bm8 00:23 Pain Scale: Adult bm8 02:45 Pain Scale: Adult bm8 [place] Coma Score: 02:45 Eye Response: spontaneous(4). Motor Response: obeys commands(6). Verbal Response: bm8 oriented(5). Total: 15. 23:30 Eye Response: spontaneous(4). Motor Response: obeys commands(6). Verbal Response: sp4 oriented(5). Total: 15. MDM: 00:20 Medical Screening Exam initiated sp4 23:30 Differential diagnosis: abscess, allergic reaction, cellulitis, insect bite. Data sp4 reviewed: vital signs, nurses notes. ED course: No signs of postoperative infection. Patient was advised to continue daily cleansing. Will prescribe p.o. antibiotics to prevent postop infection.. Administered Medications: 01:27 Drug: Promethazine PO 25 mg PO once Route: PO; aa10 02:05 Follow up: Response: No adverse reaction; Marked relief of symptoms aa10 01:28 Drug: Ketorolac IM 60 mg IM once Route: IM; Site: right deltoid; aa10 02:05 Follow up: Response: No adverse reaction; Marked relief of symptoms aa10 01:28 Drug: Rocephin (cefTRIAXone) IM 1 grams IM once Route: IM; Site: left ventrogluteal; aa10 02:05 Follow up: Response: No adverse reaction; Marked relief of symptoms aa10 01:28 Drug: HYDROcodone-acetaminophen PO 5 mg-325 mg 2 tabs PO once Route: PO; aa10 02:05 Follow up: Response: No adverse reaction; Marked relief of symptoms aa10 Disposition Summary: 11/03/24 01:50 Discharge Ordered Notes: Location: Home sp4 Problem: new sp4 Symptoms: have improved sp4 Condition: Stable sp4 Diagnosis - Acute allergic reaction, Acute Allergic Hives sp4 - Perianal incision pain and drainage, acute postoperative pain, acute rectal and sp4 anal pain Followup: sp4 - With: Private Physician - When: 7 - 10 days - Reason: Recheck today's complaints Discharge Instructions: - Discharge Summary Sheet sp4 - Incision Care, Adult, [id number] sp4 Forms: - Patient Portal Instructions sp4 Prescriptions: - Cephalexin 500 mg Oral Capsule - take 1 capsule ORAL route every 12 hours for 10 days; 20 capsule; Refills: 0, sp4 Product Selection Permitted - Tramadol 50 mg Oral tablet - take 1 tablet ORAL route every 8 hours as needed; 20 tablet; Refills: 0, sp4 Product Selection Permitted Signatures: Kwadwo Khan MD MD sp4 Edmundo Pascual, RN RN bm8 Tuan Dean RN RN aa10
[2024-11-03 02:53] VITALS: O2SAT 95
[2024-11-03 02:54] VITALS: BP 110/72; TEMP 98.1
== END 2024-11-03 02:46 | disposition home or self-care (01) ==
LOC: ER 23:54
DX: L50.0 Allergic urticaria (principal); G89.18 Other acute postprocedural pain; K62.89 Other specified diseases of anus and rectum
CPT/HCPCS: Q0169; J0696

== ENCOUNTER 2025-01-03 20:59 | Emergency (ER) | payer OTHER ==
[2025-01-03] MEDS ORDERED: ONDANSETRON 4 MG/2 ML VIAL ONE (21:23)
[2025-01-03] MEDS ORDERED: MORPHINE 4 MG/ML SYR ONE (21:24)
[2025-01-03] MEDS ORDERED: FAMOTIDINE 20 MG/2 ML VIAL IV ONE (21:24)
[2025-01-03] MEDS ORDERED: NA CHLORIDE 0.9% 1,000 ML ONE (21:24)
[2025-01-03] MEDS ORDERED: PANTOPRAZOLE 40 MG INJ ONE (21:24)
[2025-01-03 21:41] LABS: Absolute Basophils 0.1 K/uL (0-0.5); Absolute Eosinophils 0.2 K/uL (0-0.5); Absolute Lymphocytes (CBC) 2.1 K/uL (0.7-4.9); Absolute Monocytes 0.5 K/uL (0.1-1.3); Absolute Neutrophil 5.6 K/uL (1.8-8.0); Basophils % 0.9 % (0-1.3); Eosinophils % 2.6 % (0-4.4); Hematocrit 39.5 % (36.0-45.0); Hemoglobin 13.8 g/dL (12.0-15.0); Lymphocytes % 24.2 % (15.3-44.8); MCH 30.7 pg (27.0-35.0); MCV 87.6 fL (80-100); MPV 8.4 fL (7.6-11.3); Monocytes % 6.5 % (3.3-12.3); Neutrophils % 65.8 % (41.7-73.7); Nucleated Red Blood Cells % 0.1 % (0-0); Platelets 316 thou/uL (152-406); RBC Red Blood Cell Count 4.51 M/uL (3.86-4.86); Red Cell Distribution Width 12.7 % (12.1-15.2)
[2025-01-03 21:48] LABS: Specific Gravity 1.023 (1.005-1.030); Sqamous Epithelial <5 /HPF (None Seen); Urine Bacteria None Seen /HPF (<20); Urine Bilirubin NEGATIVE (Negative); Urine Blood Negative (Negative); Urine Clarity Clear (Clear); Urine Color Light-Yellow (Yellow); Urine Glucose NEGATIVE (Negative); Urine Ketones NEGATIVE (Negative); Urine Micro Reflex YN NO BILL MICROSCOPIC; Urine Nitrite NEGATIVE (Negative); Urine Protein NEGATIVE (Negative); Urine RBC <5 /HPF (None Seen); Urine Urobilinogen Normal (Normal); Urine WBC <5 /HPF (<5); Urine Yeast (Budding) Trace /HPF (None Seen)
[2025-01-03 21:58] LABS: Albumin 3.5 g/dL (3.4-5.0); Albumin/Globulin Ratio 0.9 (1.1-1.8); Bilirubin Total 0.9 mg/dL (0.2-1.0); Globulin 3.8 g/dL (2.3-3.5); Protein, Total 7.3 g/dL (6.4-8.2)
--- NOTE | 2025-01-03 22:27 | RAD REPORT ---
EXAMINATION: CT ABDOMEN AND PELVIS WITH CONTRAST CLINICAL INDICATION: Abdominal pain TECHNIQUE: CT abdomen and pelvis was performed, after the administration of 100 cc Isovue-300.. Sagit conrad and coronal reconstructions were obtained. One or more of the following dose reduction techniques were used: Automated exposure control, adjustment of the mA and kV according to patient si ze, and iterative reconstruction. Unless otherwise specified, incidental findings do not require dedicated imaging follow-up. [id number]. Oral contrast was not given which limits evaluation of bowel and appendix. COMPARISON: .October 2024 FINDINGS: Post surgical changes stomach and small bowel. Fluid within nondilated large and small bowel. Liver, spleen, pancreas, adrenals and left kidney appear unremarkable. Small right renal cyst Cholecystectomy. No evidence of diverticulitis. Normal appendix. Tiny umbilical hernia. No adnexal mass. : IMPRESSION: Fluid within nondilated large and small bowel may indicate an enteritis
[2025-01-03 22:49] LABS: Specific Gravity 1.023 (1.005-1.030)
[2025-01-04] MEDS ORDERED: PROMETHAZINE 25 MG TABLET ONE (00:24)
[2025-01-04] MEDS ORDERED: DICYCLOMINE HCL 10 MG CAP ONE (00:24)
--- NOTE | 2025-01-04 00:24 | EDPHYS ---
Physician Documentation [facility] Name: Lizzeth Almaraz Age: 39 yrs Sex: Female : 1985 Arrival Date: 01/03/2025 Time: 20:59 Bed 11 Private MD: ED Physician Kwadwo Khan HPI: 01/03 21:16 This 39 yrs old Female presents to ER via Unassigned with complaints of sp4 Abdominal Pain. 01/04 04:25 Patient presents with acute upper abdominal pain associated with nausea. sp4 Historical: - Allergies: 01/03 21:20 Bactrim DS; br2 21:20 plastic tape; br2 21:20 Sulfa (Sulfonamide Antibiotics); br2 - PMHx: 21:20 anal fissure (Hypothyroidism); Gastroesophageal reflux disease; Grade 3 Splenic br2 Laceration; Hypothyroidism; COLITIS (Hypothyroidism); - PSHx: 21:20 section; Cholecystectomy; Gastric Bypass (November); rectal abcess I\T\D; Total br2 abdominal hysterectomy; - Immunization history:: Adult Immunizations up to date. - Infectious Disease History:: Denies. - Social history:: Smoking status: Patient denies any tobacco usage or history of. Patient/guardian denies using alcohol, street drugs. - Family history:: not pertinent. ROS: 01/04 04:25 Constitutional: Negative for fever, chills, and weight loss, positive for upper sp4 abdominal pain Eyes: Negative for injury, pain, redness, and discharge, All other systems are negative, Exam: 04:25 Constitutional: This is a well developed, well nourished patient who is awake, alert, sp4 and in no acute distress. Head/Face: Normocephalic, atraumatic. Eyes: Pupils equal round and reactive to light, extra-ocular motions intact. Lids and lashes normal. Conjunctiva and sclera are not injected. Cornea within normal limits. Periorbital areas with no swelling, redness, or edema. ENT: Nares patent. No nasal discharge, no septal abnormalities noted. Tympanic membranes are normal and external auditory canals are clear. Oropharynx with no redness, swelling, or masses, exudates, or evidence of obstruction, uvula midline. Mucous membranes moist. Neck: Trachea midline, no thyromegaly or masses palpated, and no cervical lymphadenopathy. Supple, full range of motion without nuchal rigidity, or vertebral point tenderness. Chest/axilla: Normal chest wall appearance and motion. Nontender with no deformity. No lesions are appreciated. Cardiovascular: Regular rate and rhythm with a normal S1 and S2. No gallops, murmurs, or rubs. Normal PMI, no JVD. No pulse deficits. Respiratory: Lungs have equal breath sounds bilaterally, clear to auscultation and percussion. No rales, rhonchi or wheezes noted. No increased work of breathing, no retractions or nasal flaring. Abdomen/GI: Soft, with normal bowel sounds. No distension or tympany. No guarding or rebound. No evidence of tenderness throughout. Back: No spinal tenderness. No costovertebral tenderness. Skin: Warm, dry with normal turgor. Normal color with no rashes, no lesions, and no evidence of cellulitis. MS/ Extremity: Pulses equal, no cyanosis. Neurovascular intact. Full, normal range of motion. Neuro: Awake and alert, GCS 15, oriented to person, place, time, and situation. Cranial nerves II-XII grossly intact. Motor strength 5/5 in all extremities. Sensory grossly intact. Psych: Awake, alert, with orientation to person, place and time. Behavior, mood, and affect are within normal limits Vital Signs: 01/03 21:18 BP 107 / 73; Pulse 60; Resp 18; Temp 97.2(TE); Pulse Ox 97% on R/A; Weight 81.65 kg; br2 Height 5 ft. 1 in. ; Pain 9/10; 21:45 BP 102 / 50; Pulse 68; Resp 16; Pulse Ox 97% on R/A; al5 22:15 BP 102 / 51; Pulse 73; Resp 16; Pulse Ox 96% on R/A; al5 23:00 BP 100 / 55; Pulse 73; Resp 16; Pulse Ox 96% on R/A; al5 21:18 Body Mass Index 34.01 (81.65 kg, 154.94 cm) br2 21:18 Pain Scale: Adult br2 Malcolm Coma Score: 21:29 Eye Response: spontaneous(4). Motor Response: obeys commands(6). Verbal Response: dd2 oriented(5). Total: 15. 01/04 04:25 Eye Response: spontaneous(4). Motor Response: obeys commands(6). Verbal Response: sp4 oriented(5). Total: 15. MDM: 01/03 21:12 Medical Screening Exam initiated 4 01/04 04:27 Differential diagnosis: appendicitis, bowel obstruction, cholecystitis, Cholelithiasis, sp4 Endometriosis, gastritis. Data reviewed: vital signs, nurses notes, lab test result(s), radiologic studies, CT scan. Consideration of Admission/Observation Escalation of care including admission/observation considered. ED course: EXAMINATION: CTABDOMEN AND PELVIS WITH CONTRAST CLINICAL INDICATION: Abdominal pain TECHNIQUE: CT abdomen and pelvis was performed, after the administration of 100 cc Isovue-300.. Sagittal and coronal reconstructions were obtained. One or more of the following dose reduction techniques were used: Automated exposure control, adjustment of the mA and kV according to patient size, and iterative reconstruction. Unless otherwise specified, incidental findings do not require dedicated imaging follow-up. [id number]. Oral contrast was not given which limits evaluation of bowel and appendix. COMPARISON: .October 2024 FINDINGS: Post surgical changes stomach and small bowel. Fluid within nondilated large and small bowel. Liver, spleen, pancreas, adrenals and left kidney appear unremarkable. Small right renal cyst Cholecystectomy. No evidence of diverticulitis. Normal appendix. Tiny umbilical hernia. No adnexal mass. : IMPRESSION: Fluid within nondilated large and small bowel may indicate an enteritis . 04:28 ED course: CT reveals enteritis, patient stable for discharge home.. 01/03 21:02 Order name: CBC with Diff; Complete Time: 23:58 4 01/03 21:02 Order name: CMP; Complete Time: 23:58 4 01/03 21:02 Order name: Lipase; Complete Time: 23:58 4 01/03 21:02 Order name: Test, Urine; Complete Time: 23:58 4 01/03 21:02 Order name: UA W/ Microscopic; Complete Time: 23:58 4 01/03 21:16 Order name: CT Abd/Pelvis - IV Contrast Only; Complete Time: 23:58 4 01/03 21:02 Order name: IV Saline Lock; Complete Time: 21:37 4 01/03 21:02 Order name: Labs collected and sent; Complete Time: 21:37 sp4 Administered Medications: 01/03 21:37 Drug: NS 0.9% IV 1000 ml IV at 1000 ml once; to be given as a bolus over 60 minutes dd2 Route: IV; Rate: 1000 ml; Site: right antecubital; 22:42 Follow up: IV Status: Completed infusion dd2 21:37 Drug: morphine IVP or IV 4 mg IVP once over 4 mins Route: IVP; Infused Over: 4 mins; dd2 Site: right antecubital; 21:52 Follow up: Response: No adverse reaction dd2 21:37 Drug: Pantoprazole IVP 40 mg IVP once Route: IVP; Site: right antecubital; dd2 21:52 Follow up: Response: No adverse reaction dd2 21:37 Drug: Famotidine IVP 20 mg IVP once; dilute with 10 mL 0.9% NaCl; give over 2 minutes dd2 Route: IVP; Site: right antecubital; 21:52 Follow up: Response: No adverse reaction dd2 21:37 Drug: Ondansetron IVP 4 mg IVP once; over 2 minutes Route: IVP; Site: right antecubital;dd2 21:52 Follow up: Response: No adverse reaction dd2 01/04 00:27 Drug: Dicyclomine PO 20 mg PO once Route: PO; br2 00:39 Follow up: Response: No adverse reaction br2 00:27 Drug: Promethazine PO 25 mg PO once Route: PO; br2 00:39 Follow up: Response: No adverse reaction br2 00:38 Drug: Ketorolac IVP 30 mg IVP once Route: IVP; Site: right antecubital; br2 00:39 Follow up: Response: Medication administered at discharge. br2 Disposition: 04:28 Chart complete. sp4 Disposition Summary: 01/04/25 00:23 Discharge Ordered Notes: Location: Home sp4 Problem: new sp4 Symptoms: have improved sp4 Condition: Stable sp4 Diagnosis - Acute viral enteritis, acute upper abdominal pain, acute vomiting sp4 Followup: sp4 - With: Private Physician - When: 7 - 10 days - Reason: Recheck today's complaints Discharge Instructions: - Discharge Summary Sheet sp4 - Viral Gastroenteritis, Adult, [id number] sp4 Forms: - Patient Portal Instructions sp4 Prescriptions: - Lomotil 2.5-0.025 mg Oral tablet - take 1 tablet ORAL route every 6 hours As needed PRN diarrhea; 30 tablet; sp4 Refills: 0, Product Selection Permitted - promethazine 25 mg Oral tablet - take 1 tablet ORAL route every 6 hours As needed PRN nausea; 30 tablet; sp4 Refills: 0, Product Selection Permitted - dicyclomine 20 mg Oral tablet - take 1 tablet ORAL route 3 times per day PRN abdominal pain; 30 tablet; sp4 Refills: 0, Product Selection Permitted Signatures: Dispatcher [employer] EDMS Kwadwo Khan MD MD sp4 Christine Sanches RN RN br2 VY BUSTOS RN RN dd2 Corrections: (The following items were deleted from the chart) 01/03 21:03 21:02 CBC+H.LAB.BRZ ordered. EDMS EDMS 21:03 21:02 COMPREHENSIVE METABOLIC PANEL+C.LAB.BRZ ordered. EDMS EDMS 21:03 21:02 LIPASE+C.LAB.BRZ ordered. EDMS EDMS 21:03 21:02 Test, Urine+UC.LAB.BRZ ordered. EDMS EDMS 21:16 21:16 Abdomen Pelvis W Con+CT.RAD.BRZ ordered. EDMS EDMS
--- NOTE | 2025-01-04 00:24 | ER ---
Nurse's Notes [facility] Name: Lizzeth Almaraz Age: 39 yrs Sex: Female : 1985 Arrival Date: 01/03/2025 Time: 20:59 Bed 11 Private MD: Diagnosis: Acute viral enteritis, acute upper abdominal pain, acute vomiting Presentation: 01/03 21:18 Chief complaint: Patient states: AB PAIN UMBILICAL AREA, NAUSEA/VOMITING THIS AM. br2 Coronavirus screen: Client denies travel out of the [place] in the last 14 days. Ebola Screen: Patient denies exposure to infectious person. Initial Sepsis Screen: Does the patient meet any 2 criteria? No. Patient's initial sepsis screen is negative. Does the patient have a suspected source of infection? No. Patient's initial sepsis screen is negative. Risk Assessment: Do you want to hurt yourself or someone else? Patient reports no desire to harm self or others. Onset of symptoms was January 03, 2025 at 09:00. 21:18 Method Of Arrival: Ambulatory br2 21:18 Method Of Arrival: Ambulatory br2 21:18 Acuity: SAKSHI 3 br2 Triage Assessment: 21:20 General: Appears in no apparent distress. comfortable, Behavior is calm, cooperative. br2 Pain: Complains of pain in right upper quadrant, left upper quadrant, right lower quadrant and left lower quadrant Pain does not radiate. Pain currently is 9 out of 10 on a pain scale. GI: Reports lower abdominal pain, upper abdominal pain, nausea, vomiting. Historical: - Allergies: 21:20 Bactrim DS; br2 21:20 plastic tape; br2 21:20 Sulfa (Sulfonamide Antibiotics); br2 - PMHx: 21:20 anal fissure (Hypothyroidism); Gastroesophageal reflux disease; Grade 3 Splenic br2 Laceration; Hypothyroidism; COLITIS (Hypothyroidism); - PSHx: 21:20 section; Cholecystectomy; Gastric Bypass (November); rectal abcess I\T\D; Total br2 abdominal hysterectomy; - Immunization history:: Adult Immunizations up to date. - Infectious Disease History:: Denies. - Social history:: Smoking status: Patient denies any tobacco usage or history of. Patient/guardian denies using alcohol, street drugs. - Family history:: not pertinent. Screenin:29 [place] ED Fall Risk Assessment (Adult) History of falling in the last 3 months, dd2 including since admission No falls in past 3 months (0 pts) Confusion or Disorientation No (0 pts) Intoxicated or Sedated No (0 pts) Impaired Gait No (0 pts) Mobility Assist Device Used No (0 pt) Altered Elimination No (0 pt) Score/Fall Risk Level 0 - 2 = Low Risk Oriented to surroundings, Maintained a safe environment, Educated pt \T\ family on fall prevention, incl call for assistance when getting out of bed, Assessed \T\ reinforced patient's understanding of fall precautions, Hourly rounding (assess needs \T\ fall precautionary measures) done. Abuse screen: Denies threats or abuse. Denies injuries from another. Nutritional screening: No deficits noted. Tuberculosis screening: No symptoms or risk factors identified. Assessment: 21:29 General: Appears in no apparent distress. uncomfortable, Behavior is cooperative, dd2 appropriate for age, crying. Pain: Complains of pain in left lower quadrant and right lower quadrant and left upper quadrant and right upper quadrant Pain does not radiate. Pain currently is 8 out of 10 on a pain scale. Quality of pain is described as burning, crampy. Neuro: No deficits noted. Level of Consciousness is awake, alert, obeys commands, Oriented to person, place, time, situation, Appropriate for age. Cardiovascular: No deficits noted. Patient's skin is warm and dry. Respiratory: No deficits noted. Airway is patent Respiratory effort is even, unlabored, Respiratory pattern is regular, symmetrical. GI: Abdomen is non-distended, obese, Bowel sounds present X 4 quads. Abd is soft X 4 quads Abdomen is tender to palpation X 4 quads. Reports lower abdominal pain, upper abdominal pain, nausea, vomiting. : Urine is cloudy. EENT: No deficits noted. No signs and/or symptoms were reported regarding the EENT system. Derm: No deficits noted. No signs and/or symptoms reported regarding the dermatologic system. Musculoskeletal: No deficits noted. No signs and/or symptoms reported regarding the musculoskeletal system. Circulation, motion, and sensation intact. Range of motion: intact in all extremities. Vital Signs: 21:18 BP 107 / 73; Pulse 60; Resp 18; Temp 97.2(TE); Pulse Ox 97% on R/A; Weight 81.65 kg; br2 Height 5 ft. 1 in. ; Pain 9/10; 21:45 BP 102 / 50; Pulse 68; Resp 16; Pulse Ox 97% on R/A; al5 22:15 BP 102 / 51; Pulse 73; Resp 16; Pulse Ox 96% on R/A; al5 23:00 BP 100 / 55; Pulse 73; Resp 16; Pulse Ox 96% on R/A; al5 21:18 Body Mass Index 34.01 (81.65 kg, 154.94 cm) br2 21:18 Pain Scale: Adult br2 Gomer Coma Score: 21:29 Eye Response: spontaneous(4). Motor Response: obeys commands(6). Verbal Response: dd2 oriented(5). Total: 15. 01/04 04:25 Eye Response: spontaneous(4). Motor Response: obeys commands(6). Verbal Response: sp4 oriented(5). Total: 15. ED Course: 01/03 21:02 Patient arrived in ED. mr 21:02 Kwadwo Khan MD is Attending Physician. sp4 21:17 Christine Sanches RN is Primary Nurse. br2 21:20 Triage completed. br2 21:29 Patient has correct armband on for positive identification. Bed in low position. Call dd2 light in reach. Side rails up X2. Provided Education on: MEDICATIONS. Client placed on continuous cardiac and pulse oximetry monitoring. NIBP monitoring applied. Door closed. Noise minimized. Warm blanket given. Pillow given. Verbal reassurance given. 21:36 No provider procedures requiring assistance completed. Initial lab(s) drawn, by me, dd2 sent to lab. Urine collected: clean catch specimen, jose colored. Inserted saline lock: 20 gauge in right antecubital area, using aseptic technique. Blood collected. Flushed with 10 mL NS. Patient maintains SpO2 saturation greater than 95% on room air. 21:37 CBC with Diff Sent. dd2 21:37 CMP Sent. dd2 21:37 Lipase Sent. dd2 21:37 UA W/ Microscopic Sent. dd2 22:06 CT Abd/Pelvis - IV Contrast Only In Process Unspecified. EDMS 01/04 00:40 IV discontinued, intact, bleeding controlled, No redness/swelling at site. Pressure br2 dressing applied. Administered Medications: 01/03 21:37 Drug: NS 0.9% IV 1000 ml IV at 1000 ml once; to be given as a bolus over 60 minutes dd2 Route: IV; Rate: 1000 ml; Site: right antecubital; 22:42 Follow up: IV Status: Completed infusion dd2 21:37 Drug: morphine IVP or IV 4 mg IVP once over 4 mins Route: IVP; Infused Over: 4 mins; dd2 Site: right antecubital; 21:52 Follow up: Response: No adverse reaction dd2 21:37 Drug: Pantoprazole IVP 40 mg IVP once Route: IVP; Site: right antecubital; dd2 21:52 Follow up: Response: No adverse reaction dd2 21:37 Drug: Famotidine IVP 20 mg IVP once; dilute with 10 mL 0.9% NaCl; give over 2 minutes dd2 Route: IVP; Site: right antecubital; 21:52 Follow up: Response: No adverse reaction dd2 21:37 Drug: Ondansetron IVP 4 mg IVP once; over 2 minutes Route: IVP; Site: right antecubital;dd2 21:52 Follow up: Response: No adverse reaction dd2 01/04 00:27 Drug: Dicyclomine PO 20 mg PO once Route: PO; br2 00:39 Follow up: Response: No adverse reaction br2 00:27 Drug: Promethazine PO 25 mg PO once Route: PO; br2 00:39 Follow up: Response: No adverse reaction br2 00:38 Drug: Ketorolac IVP 30 mg IVP once Route: IVP; Site: right antecubital; br2 00:39 Follow up: Response: Medication administered at discharge. br2 Medication: 01/03 21:29 VIS not applicable for this client. dd2 Outcome: 01/04 00:23 Discharge ordered by . sp4 00:40 Discharged to home ambulatory, br2 00:40 Condition: improved 00:40 Discharge instructions given to patient, Instructed on discharge instructions, follow up and referral plans. Demonstrated understanding of instructions, follow-up care, medications, Prescriptions given X 3, 00:49 Patient left the ED. br2 Signatures: Dispatcher [employer] EDWA Donita Noble, Kwadwo Ricketts MD MD sp4 Langhorst, Amanda, RN RN al5 Christine Sanches, RN RN br2 VY BUSTOS, RN RN dd2
[2025-01-04] MEDS ORDERED: KETOROLAC 30 MG/ML INJ ONE (00:29)
[2025-01-04 08:30] VITALS: TEMP 97.2
[2025-01-04 08:32] VITALS: O2SAT 96
[2025-01-04 08:33] VITALS: BP 100/55
== END 2025-01-04 00:49 | disposition home or self-care (01) ==
LOC: ER 20:59
DX: A08.4 Viral intestinal infection, unspecified (principal); R11.10 Vomiting, unspecified
CPT/HCPCS: 96361; 85025; 81001; 36415; 81025; 83690; 80053; 74177; 96375; 96374; 99284; Q9967; Q0169; J2470; J2405; J7030